=== PATIENT | male | born 1955 | race Caucasian/White ===

== ENCOUNTER → 2016-12-31 | Outpatient (CLI) | payer OTHER ==
[~2016-12-31] MED LIST: IOPAMIDOL (ISOVUE-300) 100 ML BTL IV ONE
== END ==
LOC: FIMAGING 11:07
PROVIDERS: ATTEND Internal Medicine
DX: R05 Cough (principal); R93.8 Abnormal findings on diagnostic imaging of other specified body structures; Z87.891 Personal history of nicotine dependence
CPT/HCPCS: Q9967

== ENCOUNTER 2017-01-02 13:53 | Day surgery (SDC) | payer OTHER ==
[~2017-01-02 13:53] MED LIST changes: +ALBUTEROL 3 ML DEYVIAL ONE; -IOPAMIDOL (ISOVUE-300) 100 ML BTL IV ONE; +LIDOCAINE 1% 2 ML INJ ONE
[2017-01-02] MEDS ORDERED: LIDOCAINE 1% 2 ML INJ ID PRN (14:27)
[2017-01-02] MEDS ORDERED: NS 1,000 ML IV SCH (14:30)
[2017-01-02] MEDS ORDERED: fentaNYL 100 MCG/2 ML INJ ONE (14:31)
[2017-01-02] MEDS ORDERED: MIDAZOLAM 2 MG/2 ML VIAL ONE (14:31)
[2017-01-02] MEDS ORDERED: LIDOCAINE 0.5% 50 ML SDV ONE (14:47)
[2017-01-02] MEDS ORDERED: LIDOCAINE 1% 30 ML SDV ONE (14:48)
--- NOTE | 2017-01-02 18:30 | GPN ---
[f rep st] PROCEDURE NOTE PROCEDURE PERFORMED: Bronchoscopy. INDICATION: Lung mass. HISTORY: The patient is a very pleasant 61-year-old with a distant history of tobacco use. He smoked about 3/4 of a pack of cigarettes per day for perhaps 20 years. He quit smoking 25 years ago. Over the past month, he has had episodes of bronchitis and cough. Secondary to persistent symptoms, a chest x- ray and CT scan were done. There is a left perihilar parenchymal lesion with associated adenopathy related to the superior segment of the left lower lobe and apparently extending into the medial left upper lobe. There appears to be some air filled areas within the periphery of the mass without eb cavitation. Differential primarily includes malignancy and infectious etiologies. This procedure is being done to obtain samples. PROCEDURE NOTE: The procedure was performed in the endoscopy unit in a negative pressure room. N95 masks were worn. Informed consent was obtained from the patient. Appropriate time-out was performed. Topical anesthesia included approximately 25 mL of 1% lidocaine. Conscious sedation included 6 mg of Versed and 150 mcg of fentanyl. The fiberoptic bronchoscope was passed via bite block orally in the larynx. The vocal cords were identified and cannulated. The vocal cords appeared to be normal and moved normally with respiration and cough. The bronchoscope was then advanced into the trachea and into the lower tracheobronchial tree bilaterally. There were no significant secretions. All areas were observed to at least the first subsegmental level. Anatomy was normal. Specifically, on the left, there were no endobronchial lesions and there was no evidence of extrinsic compression or mucosal abnormalities. Washings/lavage, brushings and transbronchial biopsies were taken primarily from the superior segment of the left lower lobe. These samples were sent for cultures and cytology. Transbronchial biopsies were obtained and sent for pathology. A transtracheal aspirate was attempted but the needle may not have completely penetrated the distal trachea on the left. Some material from this attempted trans-tracheal needle biopsy was placed on slides in fixative and also sent. IMPRESSION: 1. Normal endobronchial anatomy in relation to the left side in the area of the patient's lung mass on CT scan. 2. Appropriate samples were sent to the laboratory. 3. Results will not be back for several days. As the procedure was done late Thursday, I would not expect any results back until Thursday at the earliest. The patient was instructed to call the office on Thursday for discussions of the results. Further plans and recommendations will be made based on the results. /[id number]/MODL MTDD
== END 2017-01-02 17:10 | disposition home or self-care (01) ==
LOC: FSGY 13:53
PROVIDERS: ATTEND Internal Medicine Pulmonary Disease
DX: R91.8 Other nonspecific abnormal finding of lung field (principal); Z87.891 Personal history of nicotine dependence; K21.9 Gastro-esophageal reflux disease without esophagitis
CPT/HCPCS: J0171; J2250; J3010

== ENCOUNTER → 2017-02-16 | Outpatient (CLI) | payer OTHER | LOC: FIMAGING 11:17 | PROVIDERS: ATTEND Internal Medicine | DX: R91.8 Other nonspecific abnormal finding of lung field (principal) ==

== ENCOUNTER 2017-02-23 08:59 | Day surgery (SDC) | payer OTHER ==
[~2017-02-23 08:59] MED LIST changes: -ALBUTEROL 3 ML DEYVIAL ONE; -LIDOCAINE 1% 2 ML INJ ONE; +NS 1,000 ML IV SCH
[2017-02-23 10:09] LABS: APTT 29.3 SEC (23.0-38.0); INR 1.1 (0.83-1.16); PROTIME(PATIENT) 14.1 SEC (12.0-15.0)
[2017-02-23] MEDS ORDERED: LORazepam 1 MG TAB ONE (10:18)
[2017-02-23] MEDS ORDERED: fentaNYL 100 MCG/2 ML INJ ONE (10:41)
[2017-02-23] MEDS ORDERED: MIDAZOLAM 2 MG/2 ML VIAL ONE ×2 (10:42→11:43)
[2017-02-23] MEDS ORDERED: HYDROCODONE/APAP 5/325 TAB ONE (12:26)
[2017-02-23] MEDS ORDERED: HYDROCODONE/APAP 5/325 TAB PO PRN (12:33)
[2017-02-23] MEDS ORDERED: ONDANSETRON 4 MG/2 ML VIAL IVP PRN (12:33)
== END 2017-02-23 15:40 | disposition home or self-care (01) ==
LOC: FIMAGING 08:59
PROVIDERS: ATTEND Internal Medicine
PROC: 0BBL3ZX Excision of Left Lung, Percutaneous Approach, Diagnostic (ICD-10-PCS; principal; 2017-02-23 13:10)
DX: C34.92 Malignant neoplasm of unspecified part of left bronchus or lung (principal); J93.9 Pneumothorax, unspecified
CPT/HCPCS: J2250; J3010

== ENCOUNTER 2017-03-13 07:52 | Outpatient (CLI) | payer OTHER ==
[2017-03-13] MEDS ORDERED: NS 1,000 ML IV SCH (08:00)
[2017-03-13] MEDS ORDERED: GADOBUTROL 10 ML VIAL IVP ONE (08:13)
[2017-03-13] MEDS ORDERED: FLUMAZENIL 0.5 MG/5 ML MDV IVP ONE (08:55)
[2017-03-13] MEDS ORDERED: ONDANSETRON 4 MG/2 ML VIAL ONE (08:55)
[2017-03-13] MEDS ORDERED: MIDAZOLAM 2 MG/2 ML VIAL ONE (08:56)
[2017-03-13] MEDS ORDERED: fentaNYL 100 MCG/2 ML INJ ONE (08:56)
[2017-03-13] MEDS ORDERED: NALOXONE HCL 0.4 MG/ML INJ ONE (08:56)
== END 2017-03-13 10:58 | disposition home or self-care (01) ==
LOC: FIMAGING 07:52
PROVIDERS: ATTEND Internal Medicine Hematology & Oncology
DX: G93.89 Other specified disorders of brain (principal); C34.12 Malignant neoplasm of upper lobe, left bronchus or lung
CPT/HCPCS: A9585; J2250; J2310; J2405; J3010

== ENCOUNTER 2017-04-27 17:08 | Emergency (ER) | payer OTHER ==
[2017-04-27 17:24] VITALS: O2SAT 95
[2017-04-27] MEDS ORDERED: ONDANSETRON 4 MG/2 ML VIAL IVP ONE (17:29)
[2017-04-27] MEDS ORDERED: NS 1,000 ML IV ONE (17:29)
--- NOTE | 2017-04-27 18:03 | EDPHY ---
H & P Time Seen by Provider: 04/27/17 17:29 HPI/ROS: CHIEF COMPLAINT: Fever, cough, fatigue HISTORY OF PRESENT ILLNESS: The patient is a 62-year-old male with history of lung cancer, presenting with fever and cough. The patient developed a fever 5 days ago. He was told to stop his target therapy drug called Tarceva. The following day he had multiple episodes of vomiting and diarrhea which have now subsided. He developed an acute cough 3 days ago. Patient is more fatigued than usual and continues to feel chills. He is only able to ambulate for short periods of time. Patient reports decreased PO intake since starting Tarceva due to nausea. He denies urinary complaints. REVIEW OF SYSTEMS: A comprehensive 10 point review of systems is otherwise negative aside from elements mentioned in the history of present illness. Past Medical/Surgical History: Lung cancer Social History: . Lives in [place]. Smoking Status: Former smoker Physical Exam: General Appearance: Alert, pleasant Eyes: Pupils equal and round, no conjunctival pallor or injection ENT, Mouth: Mucous membranes moist Neck: Normal inspection Respiratory: Lungs are clear to auscultation Cardiovascular: Regular rate and rhythm Gastrointestinal: Abdomen is soft and non-tender Neurological: A&O, nonfocal, normal gait Skin: Warm and dry, no rash Extremities: Nontender, no pedal edema Psychiatric: Mood and affect normal Constitutional: Initial Vital Signs Temperature (C) 37.8 C 04/27/17 17:15 Heart Rate 11 L 04/27/17 17:15 Respiratory Rate 18 04/27/17 17:15 Blood Pressure 108/72 04/27/17 17:15 O2 Sat (%) 95 04/27/17 17:15 O2 Delivery Mode Room Air Allergies/Adverse Reactions: No Known Allergies Allergy (Verified 04/27/17 17:21) Home Medications: Medication Instructions Recorded Doxycycline Hyclate [Vibramycin 100 mg PO BID 04/27/17 100 MG (*)] Erlotinib HCl [Tarceva] 150 mg PO DAILY 04/27/17 FENOFIBRATE 160 mg PO 04/27/17 Famotidine [Pepcid 20 MG (*)] 20 mg PO DAILY 04/27/17 Hydrocodone Bit/Acetaminophen 1 each PO 04/27/17 [Hydrocodon-Acetaminoph 7.5-750] LORazepam [Ativan (*)] 0.5 mg PO 04/27/17 Ondansetron Odt [Zofran Odt 4 mg 4 mg PO Q4 04/27/17 (*)] Ondansetron Odt [Zofran Odt 4 mg 4 mg PO Q4 PRN #6 tab 04/27/17 (*)] levOFLOXACIN [levAQUIN (*)] 750 mg PO DAILY #9 tab 04/27/17 Medical Decision Making - Diagnostics Imaging Results: CXR: ELKE infiltrate and tumor Imaging: Discussed imaging studies w/ house calls nurse Radiologist, I viewed and interpreted images myself ED Course/Re-evaluation: Clinical presentation concerning for pneumonia. Patient with history of lung cancer presents with 4 day history of fever and cough. Patient had vomiting and diarrhea a few days ago that has now subsided. He continues to have fever and cough and reports increased fatigue. Patient received IV Zofran and fluids for nausea. Plan for chest x-ray to look for pneumonia. 6:30p.m.: I discussed x-ray imaging with Dr. Hawthorne, the radiologist. Chest x- ray shows left upper lobe pneumonia. d/w pt, he would like to go home, concurs. On Doxycycline for rash. Levaquin 750mg IV given. P informed to d/c doxycycline. 6:35 p.m.: I consulted Dr. Samuel, Oncology. Will help arrange f/u in 1-2 days. Pt strongly encouraged to return to ED for worsening sx, any concerns. Differential Diagnosis: includes though not limited to cellulitis, pyelonephritis, meningitis, viral syndrome - Data Points Medications Given: Discontinued Medications Acetaminophen (Tylenol) 650 mg PO EDNOW ONE Stop: 04/27/17 18:22 Last Admin: 04/27/17 18:40 Dose: 650 mg Sodium Chloride (Ns) 1,000 mls @ 0 mls/hr IV EDNOW ONE; Wide Open PRN Reason: Protocol Stop: 04/27/17 17:30 Last Admin: 04/27/17 17:53 Dose: 1,000 mls Levofloxacin/Dextrose (Levaquin 750 Mg (Premix)) 150 mls @ 100 mls/hr IV EDNOW ONE PRN Reason: Protocol Stop: 04/27/17 20:09 Last Admin: 04/27/17 18:49 Dose: 150 mls Ondansetron HCl (Zofran) 4 mg IVP EDNOW ONE Stop: 04/27/17 17:30 Last Admin: 04/27/17 17:54 Dose: 4 mg Departure - Departure Disposition: Home, Routine, Self-Care Clinical Impression: Pneumonia Condition: Good Instructions: Pneumonia (ED) Additional Instructions: Please take full course of Levaquin as prescribed. Take Zofran as directed for recurrent nausea and vomiting. Call Dr. Samuel's office tomorrow to arrange a followup appointment for tom or Thursday. I recommend 650mg Tylenol PO every 4-8 hours to help with fever. Referrals: Josafat Abreu MD [Primary Care Provider] - As per Instructions Joseph Samuel MD [Medical Doctor] - As per Instructions Prescriptions: levOFLOXACIN [levAQUIN (*)] 750 mg PO DAILY #9 tab Ondansetron Odt [Zofran Odt 4 mg (*)] 4 mg PO Q4 PRN #6 tab PRN Reason: Nausea Report Scribed for: Gilda Moore Report Scribed by: Franchesca Mahajan Date of Report: 04/27/17 Time of Report: 18:21 Physician Review and Approval Statement: 04/27/17 18:22 Portions of this note were transcribed by a veterinary medical officer. I personally performed the history, physical exam, and medical decision-making; and confirmed the accuracy of the information in the transcribed note.
[2017-04-27] MEDS ORDERED: ACETAMINOPHEN 325 MG TAB PO ONE (18:21)
[2017-04-27 20:34] VITALS: BP 114/62; PULSE 92; RESP 16; TEMP 97.9
== END 2017-04-27 20:34 | disposition home or self-care (01) ==
DX: J18.9 Pneumonia, unspecified organism (principal); E86.9 Volume depletion, unspecified; Z85.118 Personal history of other malignant neoplasm of bronchus and lung; Z87.891 Personal history of nicotine dependence
CPT/HCPCS: 96365; J1956; J2405

== ENCOUNTER 2017-04-30 16:34 | Inpatient (IN) | payer OTHER ==
[2017-04-30] MEDS ORDERED: NS 1,000 ML IV ONE ×3 (17:04→19:05)
--- NOTE | 2017-04-30 17:04 | EDPHY ---
H & P Stated Complaint: jose, here Thursday, on levaquin, not getting better Time Seen by Provider: 04/30/17 17:03 HPI/ROS: CHIEF COMPLAINT: Worsening malaise, vomiting, recently diagnosed with pneumonia HISTORY OF PRESENT ILLNESS: The patient has a history of lung cancer. He was recently diagnosed with pneumonia in the emergency department 3 days ago. He was started on oral Levaquin at that point time. Prior to that he had been having symptoms of increasing malaise and fatigue over several weeks. The patient reported that he had a very mild cough during this time. He did have symptoms of fairly significant diarrhea attributed to his chemotherapy. He has been off chemotherapy for some time. He was felt to have a left upper lobe pneumonia during his last ED visit. He was discharged home and follow up with his oncologist today where he was noted to be tachycardic, dehydrated reported ongoing intermittent low-grade fevers of 101-102 degrees. The patient does not endorse symptoms of a particularly strong productive cough. The patient does continue to have nausea, vomiting, weight loss and fatigue. REVIEW OF SYSTEMS: A comprehensive 10 point review of systems is otherwise negative aside from elements mentioned in the history of present illness. Source: Patient Exam Limitations: No limitations - Personal History Current Tetanus/Diphtheria Vaccine: Yes Current Tetanus Diphtheria and Acellular Pertussis (TDAP): Yes Tetanus Vaccine Date: < 10 years - Medical/Surgical History Hx Asthma: No Hx Chronic Respiratory Disease: No Hx Diabetes: No Hx Cardiac Disease: No Hx Renal Disease: No Hx Cirrhosis: No Hx Alcoholism: No Hx HIV/AIDS: No Hx Splenectomy or Spleen Trauma: No Other PMH: Hyperlipidemia. lung Ca - Social History Smoking Status: Former smoker - Physical Exam Exam: General Appearance: Thin male, cachectic, no acute distress Eyes: Pupils equal and round no pallor or injection ENT, Mouth: Mucous membranes moist Respiratory: Expiratory wheezing noted in the left upper lung field, rhonchorous breath sounds bilaterally Cardiovascular: Tachycardic Gastrointestinal: Abdomen is soft and nontender, no masses, bowel sounds normal Neurological: A&O, normal motor function, normal sensory exam, normal cranial nerves Skin: Warm and dry, no rashes Musculoskeletal: Neck is supple nontender Extremities: symmetrical, full range of motion Constitutional: Initial Vital Signs Temperature (C) 38.2 C 04/30/17 16:41 Heart Rate 121 H 04/30/17 16:41 Respiratory Rate 20 04/30/17 16:41 Blood Pressure 107/82 H 04/30/17 16:41 O2 Sat (%) 92 04/30/17 16:41 O2 Delivery Mode Room Air O2 (L/minute) 2 Allergies/Adverse Reactions: No Known Allergies Allergy (Verified 04/30/17 16:41) Home Medications: Medication Instructions Recorded Doxycycline Hyclate [Vibramycin 100 mg PO BID 04/27/17 100 MG (*)] Erlotinib HCl [Tarceva] 150 mg PO DAILY 04/27/17 FENOFIBRATE 160 mg PO 04/27/17 Famotidine [Pepcid 20 MG (*)] 20 mg PO DAILY 04/27/17 Hydrocodone Bit/Acetaminophen 1 each PO 04/27/17 [Hydrocodon-Acetaminoph 7.5-750] LORazepam [Ativan (*)] 0.5 mg PO 04/27/17 Ondansetron Odt [Zofran Odt 4 mg 4 mg PO Q4 04/27/17 (*)] Ondansetron Odt [Zofran Odt 4 mg 4 mg PO Q4 PRN #6 tab 04/27/17 (*)] levOFLOXACIN [levAQUIN (*)] 750 mg PO DAILY #9 tab 04/27/17 Medical Decision Making - Diagnostics EKG Interpretation: EKG: Complete interpretation has been separately recorded in the [facility] archive. Summary impression: Sinus rhythm, no ischemic changes or arrhythmias noted Imaging Results: Imaging Impressions Chest X-Ray 04/30/17 17:04 Impression: Acute increase in size of a central opacity within the left upper lobe suspicious for postobstructive pneumonia. Exam results discussed with Dr. Kev Shrestha. ED Course/Re-evaluation: I reviewed the patient's past medical records. He is tachycardic. His chest x- ray does show an increasing mass inside his chest from his prior chest x-ray 3 days ago. The patient does not endorse symptoms of a significant productive cough. The patient was taken for a CT scan of the chest for further evaluation of his pulmonary symptoms. The patient did have blood cultures x2 obtained in the emergency department. The patient will be started on IV Zosyn for possible postobstructive pneumonia. The patient was unable to tolerate his initial CT secondary to complaints of abdominal spasms. The patient was brought back to the emergency department. He received additional 1 mg of Ativan and 1 L of normal saline. The patient's initial lactate is normal. The patient will require admission to the hospital. Consultation is made with Dr. Morales from the hospitalist service. The patient will be admitted to the hospital for further observation this evening. Differential Diagnosis: Differential diagnosis considered includes pneumonia, pulmonary embolism, worsening intrathoracic mass, abscess - Data Points Laboratory Results: Laboratory Results 04/30/17 16:55 04/30/17 16:55 04/30/17 04/30/17 04/30/17 16:55 16:55 16:55 WBC 10.08 10^3/uL H 10^3/uL (3.80-9.50) RBC 4.12 10^6/uL L 10^6/uL (4.40-6.38) Hgb 12.1 g/dL L g/dL (13.7-17.5) Hct 35.7 % L % (40.0-51.0) MCV 86.7 fL fL (81.5-99.8) MCH 29.4 pg pg (27.9-34.1) MCHC 33.9 g/dL g/dL (32.4-36.7) RDW 13.1 % % (11.5-15.2) Plt Count 360 10^3/uL 10^3/uL (150-400) MPV 8.5 fL L fL (8.7-11.7) Neut % (Auto) 81.4 % H % (39.3-74.2) Lymph % (Auto) 7.8 % L % (15.0-45.0) [place] % (Auto) 9.5 % % (4.5-13.0) Eos % (Auto) 0.5 % L % (0.6-7.6) Baso % (Auto) 0.3 % % (0.3-1.7) Nucleat RBC Rel Count 0.0 % % (0.0-0.2) Absolute Neuts (auto) 8.20 10^3/uL H 10^3/uL (1.70-6.50) Absolute Lymphs (auto) 0.79 10^3/uL L 10^3/uL (1.00-3.00) Absolute Monos (auto) 0.96 10^3/uL H 10^3/uL (0.30-0.80) Absolute Eos (auto) 0.05 10^3/uL 10^3/uL (0.03-0.40) Absolute Basos (auto) 0.03 10^3/uL 10^3/uL (0.02-0.10) Absolute Nucleated RBC 0.00 10^3/uL 10^3/uL (0-0.01) Immature Gran % 0.5 % % (0.0-1.1) Immature Gran # 0.05 10^3/uL 10^3/uL (0.00-0.10) VBG Lactic Acid 1.2 mmol/L mmol/L (0.7-2.1) Sodium 132 mEq/L L mEq/L (134-144) Potassium 4.5 mEq/L mEq/L (3.5-5.2) Chloride 94 mEq/L L mEq/L (97-110) Carbon Dioxide 23 mEq/l mEq/l (22-31) Anion Gap 15 mEq/L mEq/L (8-16) BUN 12 mg/dL mg/dL (7-23) Creatinine 1.1 mg/dL mg/dL (0.7-1.3) Estimated GFR > 60 Glucose 112 mg/dL H mg/dL (70-100) Calcium 9.3 mg/dL mg/dL (8.5-10.4) Medications Given: Discontinued Medications Acetaminophen (Tylenol) 1,000 mg PO EDNOW ONE Stop: 04/30/17 17:21 Last Admin: 04/30/17 17:24 Dose: Not Given Sodium Chloride (Ns) 1,000 mls @ 0 mls/hr IV ONCE ONE; Wide Open PRN Reason: Protocol Stop: 04/30/17 17:05 Last Admin: 04/30/17 17:15 Dose: 1,000 mls Sodium Chloride (Ns) 1,000 mls @ 0 mls/hr IV ONCE ONE PRN Reason: Wide Open Stop: 04/30/17 18:46 Last Admin: 04/30/17 18:47 Dose: 1,000 mls Piperacillin/Tazobactam/Dextrose (Zosyn (Premix)) 100 mls @ 200 mls/hr IV EDNOW ONE PRN Reason: Protocol Stop: 04/30/17 19:43 Last Admin: 04/30/17 20:20 Dose: 100 mls Lorazepam (Ativan Injection) 1 mg IVP EDNOW ONE Stop: 04/30/17 19:06 Last Admin: 04/30/17 19:14 Dose: 1 mg Morphine Sulfate (Morphine) 6 mg IVP EDNOW ONE Stop: 04/30/17 17:39 Last Admin: 04/30/17 17:44 Dose: 6 mg Ondansetron HCl (Zofran) 4 mg IVP EDNOW ONE Stop: 04/30/17 17:10 Last Admin: 04/30/17 17:14 Dose: 4 mg Departure - Departure Disposition: [facility] Clinical Impression: Lung cancer, Vomiting, Dehydration Condition: Fair Referrals: Josafat Abreu MD [Primary Care Provider] - As per Instructions
[2017-04-30] MEDS ORDERED: ONDANSETRON 4 MG/2 ML VIAL ONE (17:05)
[2017-04-30 17:09] LABS: % IMMATURE GRANULYOCYTES 0.5 % (0.0-1.1); ABSOLUTE IMMATURE GRANULOCYTES 0.05 10^3/uL (0.00-0.10); ADD DIFF? NO; ADD MORPH? NO; ADD SCAN? NO; ATYPICAL LYMPHOCYTE FLAG 0 (0-99); FRAGMENT RBC FLAG 0 (0-99); HEMATOCRIT 35.7 % (40.0-51.0); HEMOGLOBIN 12.1 g/dL (13.7-17.5); LEFT SHIFT FLG 0 (0-99); LIPEMIA HEMOLYSIS FLAG 90 (0-99); MEAN CELL HEMOGLOBIN 29.4 pg (27.9-34.1); MEAN CELL HEMOGLOBIN CONCENTR. 33.9 g/dL (32.4-36.7); MEAN CELL VOLUME 86.7 fL (81.5-99.8); MEAN PLATELET VOLUME 8.5 fL (8.7-11.7); PLATELET CLUMPS FLAG 0 (0-99); PLATELET COUNT 360 10^3/uL (150-400); RED BLOOD CELL COUNT 4.12 10^6/uL (4.40-6.38); RED CELL DISTRIBUTION WIDTH 13.1 % (11.5-15.2)
[2017-04-30] MEDS ORDERED: ONDANSETRON 4 MG/2 ML VIAL IVP ONE (17:09)
[2017-04-30 17:17] LABS: ANION GAP 15 mEq/L (8-16); CALCIUM 9.3 mg/dL (8.5-10.4); CARBON DIOXIDE 23 mEq/l (22-31); CHLORIDE 94 mEq/L (97-110); CREATININE 1.1 mg/dL (0.7-1.3); GLOMERULAR FILTRATION RATE > 60; GLUCOSE 112 mg/dL (70-100); POTASSIUM 4.5 mEq/L (3.5-5.2); SODIUM 132 mEq/L (134-144)
[2017-04-30] MEDS ORDERED: ACETAMINOPHEN 500 MG TAB PO ONE (17:20)
[2017-04-30] MEDS ORDERED: ACETAMINOPHEN 500 MG TAB ONE (17:32)
[2017-04-30] MEDS ORDERED: IOPAMIDOL (ISOVUE 370) 100 ML BTL IV ONE (18:08)
--- NOTE | 2017-04-30 18:44 | CPEKG ---
Heart Rate: 93 RR Interval: 645 P-R Interval: 140 QRSD Interval: 76 QT Interval: 344 QTC Interval: 428 P Eola: 48 QRS Eola: 34 T Wave Eola: 21 EKG Severity - OTHERWISE NORMAL ECG - EKG Impression: SINUS RHYTHM EKG Impression: ATRIAL PREMATURE COMPLEX Electronically Signed By: Zachariah Thapa 30-Apr-2017 18:56:45
[2017-04-30] MEDS ORDERED: LORazepam 2 MG/ML INJ IVP ONE (19:05)
[2017-04-30] MEDS ORDERED: PIPERACILLIN/TAZO 4.5 GM/DEX 100 ML IV ONE (19:14)
[2017-04-30] MEDS ORDERED: ONDANSETRON 4 MG/2 ML VIAL IVP PRN (21:16)
[2017-04-30] MEDS ORDERED: HYDROCODONE/APAP 5/325 TAB PO PRN (21:16)
[2017-04-30 21:19] LABS: COLOR YELLOW; LEUKOCYTE ESTERASE,URINE NEGATIVE (NEGATIVE); NITRITE,URINE NEGATIVE (NEGATIVE); RBC,URINE 25-50 /hpf (0-3)
--- NOTE | 2017-04-30 22:07 | GHP ---
[f rep st] HISTORY AND PHYSICAL DATE OF ADMISSION: 04/30/2017 CHIEF COMPLAINT: Fever and shortness of breath. HISTORY OF PRESENT ILLNESS: A 62-year-old male with a history of lung cancer, receiving active chem otherapy, who presents to his outpatient oncologist's office with complaints of fevers times approxi mately a week and progressing shortness of breath with wheezing, tight sensation in his chest. Sheeba ent reports progressive in rather severe fatigue after his most recent round of chemotherapy that he felt he just simply could not recover from, fatigue keeping him from really engaging in even his si mple activities of daily living. His reports that he has been nearly nonmobile for many, many weeks. Patient describes fevers intermittently quite high and intolerable in the last week. Report s shortness of breath, tightness, wheezing, nonproductive cough. Patient does report diarrhea post chemotherapy and has had intermittent abdominal spasms that are quite uncomfortable for him. Denies any bloody diarrhea. Denies any dysuria, any hematuria, or lower extremity edema. Did have a rash after his last round of chemotherapy that has resolved and has had recent weight loss that he assoc iates with decreased appetite, his heightened sense of smell, and his stress related to his new diag nosis. PAST MEDICAL HISTORY: Lung cancer. SOCIAL HISTORY: Patient was a previous tobacco smoker, but quit over 28 years ago. No alcohol or i llicit drugs. FAMILY HISTORY: Negative for lung cancer. ADVANCED DIRECTIVES: Patient is full cor, full tube. His would be his medical decisionmaker. REVIEW OF SYSTEMS: A 10-point review of systems is negative with the exception of that reported in the HPI. PHYSICAL EXAMINATION: VITAL SIGNS: Blood pressure 127/76, heart rate 121, respiratory rate 20, 92% on room air, 38.2. GENERAL: This is a fatigued-appearing, middle-aged male in no acute distress. HEENT: Notable for dry mucous membranes. Eye exam is negative for any icterus. Patient does have pallor. CARDIAC: Patient is tachycardic, but regular. PULMONARY: Crackles at the right base gre ater than the left, is aerating normally in his upper lung farris. GASTROINTESTINAL: Positive kraen l sounds. Abdomen is soft. MUSCULOSKELETAL: Negative for any lower extremity edema. SKIN: Negat ramon for any rashes. NEUROLOGIC: He is alert and oriented x3. PSYCHIATRIC: Appears depressed on m y interview and examination. DIAGNOSTIC DATA: White count 10.08, platelets of 360. Sodium 132, creatinine 1.1, baseline appears 1, potassium 4.5. CT of the chest shows an enlarging left upper lobe mass. Radiology describes as left hilar with a p robable post obstructive left upper lobe pneumonitis. No pulmonary embolic disease is noted. ASSESSMENT AND PLAN: This is a 62-year-old male with lung cancer receiving active chemotherapy who presents with fever and shortness of breath. 1. Sepsis. The patient is presenting febrile, tachycardic, with leukocytosis. Presumed source is pulmonary. Agree with broad-spectrum antibiotics. To treat post obstructive pneumonia. Blood cult ures have been obtained in the emergency department. Will order sputum cultures, as well as urinaly sis to round out the sepsis workup. Can taper his antibiotics based on culture data. 2. Post obstructive pneumonia. There is an infiltrate associated with what appears to be an enlarg ing left hilar mass, certainly concerning while on active chemotherapy. Again, will treat empirical ly with IV antibiotics and follow patient's clinical progress. Will additionally treat with inhaled DuoNebs to assist with his chest tightness and wheezing sensation. 3. Acute leukocytosis presumed secondary to pneumonia. Follow on treatment. 4. Hypovolemic hyponatremia. Patient has had little oral intake. Suspect his low sodiums at prese ntation are related to his volume depletion. Will resuscitate with IV normal saline and recheck in the morning. 5. Lung cancer. Primary oncologist initiated transfer to the hospital. Will have [facility] follow along. 6. Prophylaxis with Lovenox. 7. Diet regular. DISPOSITION: I expect greater than 2 midnights as the patient requires IV treatment for sepsis, flu id support, and close monitoring. Discussed the case with the emergency room physician. The patient will be triaged to the PCU for ca rdiac monitoring and IV fluid resuscitation. /[id number]/MODL
[2017-04-30] MEDS: NS 1,000 ML IV SCH (22:12)
[2017-04-30] MEDS: IPRATROPIUM/ALBUTEROL 3 ML DEYVIAL IH SCH (22:27)
[2017-04-30] MEDS ORDERED: BENZONATATE 100 MG CAP PO PRN (23:26)
[2017-05-01] MEDS: PIPERACILLIN/TAZO 4.5 GM/DEX 100 ML IV SCH ×4 (01:13→18:39)
[2017-05-01 04:56] LABS: % IMMATURE GRANULYOCYTES 0.8 % (0.0-1.1); ABSOLUTE IMMATURE GRANULOCYTES 0.06 10^3/uL (0.00-0.10); ADD DIFF? NO; ADD MORPH? NO; ADD SCAN? NO; ATYPICAL LYMPHOCYTE FLAG 0 (0-99); FRAGMENT RBC FLAG 0 (0-99); HEMATOCRIT 28.6 % (40.0-51.0); HEMOGLOBIN 9.7 g/dL (13.7-17.5); LEFT SHIFT FLG 10 (0-99); LIPEMIA HEMOLYSIS FLAG 90 (0-99); MEAN CELL HEMOGLOBIN 29.8 pg (27.9-34.1); MEAN CELL HEMOGLOBIN CONCENTR. 33.9 g/dL (32.4-36.7); MEAN CELL VOLUME 87.7 fL (81.5-99.8); MEAN PLATELET VOLUME 8.5 fL (8.7-11.7); PLATELET CLUMPS FLAG 10 (0-99); PLATELET COUNT 282 10^3/uL (150-400); RED BLOOD CELL COUNT 3.26 10^6/uL (4.40-6.38); RED CELL DISTRIBUTION WIDTH 13.2 % (11.5-15.2)
[2017-05-01 05:05] LABS: ANION GAP 11 mEq/L (8-16); CALCIUM 8.2 mg/dL (8.5-10.4); CARBON DIOXIDE 23 mEq/l (22-31); CHLORIDE 103 mEq/L (97-110); GLOMERULAR FILTRATION RATE > 60; GLUCOSE 115 mg/dL (70-100); POTASSIUM 4.2 mEq/L (3.5-5.2); SODIUM 137 mEq/L (134-144)
[2017-05-01] MEDS: IPRATROPIUM/ALBUTEROL 3 ML DEYVIAL IH SCH ×4 (05:57→21:34)
[2017-05-01] MEDS: ENOXAPARIN 40 MG/0.4 ML SYR SC SCH (09:28)
--- NOTE | 2017-05-01 09:49 | GCON ---
[f rep st] CONSULTATION HEMATOLOGY/ONCOLOGY CONSULTATION. REASON FOR CONSULTATION: Lung cancer. RECOMMENDATIONS: 1. Empiric IV antibiotic therapy for postobstructing pneumonia. 2. We will review his imaging and at our tumor board meeting. The issues are:. a. Is the disease progressing on Tarceva? b. If #1 is true, should he have chemoradiotherapy to open his bronchus? c. If #1 is true, should he switch to a different tyrosine kinase such as afatinib at a low dose? 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 Shaw on February 27. At that time, he was noted to have symptoms, beginning in 2015, characterized by cough and infection. A bronchoscopy revealed no evidence of malignancy, but a repeat bronchoscopy revealed adenocarcinoma. He had a history of smoking, but quit in 1993. He had a 22 pack-year history. He had an MRI scan and a PET scan. The PET scan showed that he had T2B N3 M0, stage IIIB disease, and molecular targets were tested. He was found to have a LA58R EGFR mutation, but the tumor was PDL1 negative. Initially it was recommended that he begin afatinib, but because he got a second opinion at with Dr. Wu, he started on erlotinib. He was begun in mid February on erlotinib 150 mg daily. He has taken about 4 weeks of erlotinib, but his treatment has been very complicated by a grade 3 fatigue, almost to the extent that he cannot get out of bed, as well as a grade 1 acneiform rash on his face, and some loss of appetite. He went up to [place] for a family green party, and then developed cough, vomiting, and fever. He was seen in the clinic a couple of days ago, sent to the emergency room for evaluation, and placed on Levaquin, with a diagnosis of probably postobstructed pneumonia. He came into the clinic yesterday, April 30, with worsening symptoms of cough. His O2 sat was 93% on room air. He had blood cultures obtained, and was admitted to the hospital. A CT angiogram was performed, which revealed no evidence for pulmonary emboli, but it showed significant increase, compared to February 23 CT scan, in the left hilar mass, and also some enlarging left-sided paratracheal or periaortic lymph nodes in the 2 to 2.5 cm range, which were not that large in the past. The patient also had postobstructive inflammatory infiltrate. He was admitted and placed on piperacillin, and currently is afebrile. He now presents for consultation. CLINICAL IMPRESSION: 1. My impression is that he has progressed. The issues are:. a. Did he progress before he started erlotinib, which was about a month after the baseline CT? While that is possible, he was not having fever at that time, and I suspect that this has progressed while on erlotinib after 4 weeks. b. Could this be some sort of a flare reaction? Flare reactions have been seen when we discontinue erlotinib or other TKIs, but they are not seen on it, like it could occur in a PDL1 inhibitor. c. If he is progressing, then what would be the next best therapy? I think chemoradiotherapy would be the standard of care, and this could be given with a curative intent with weekly Carbo/Taxol and radiation. d. An alternative would be to switch him to a different TKI, such afatinib. However, that has been associated with more toxicity. e. Continue the Tarceva for another few weeks, and then repeat imaging and see if there is just a delay in response, and persist with the current therapy. 2. Those are the options. We will review his case at Tumor Board and come to some conclusion next week, hopefully. PAST MEDICAL HISTORY: Otherwise, not remarkable. He has had a history of hypertriglyceridemia, history of a cholecystectomy. FAMILY HISTORY: Reveals his mother of heart disease, but his father is alive at 91. 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 He drinks alcohol sparingly. REVIEW OF SYSTEMS: Shows that he has a sense of general malaise, and obvious concern. His weight today is measured at down about 12 pounds since January. He has some cough, but no hemoptysis. He does not have any chest pain. The main symptoms are just general malaise and fatigue, fever, and some chills. CLINICAL EXAM: GENERAL APPEARANCE: Reveals a well-developed gentleman looking his stated age. HEENT: He has no scleral icterus. NECK: There is no cervical or supraclavicular adenopathy. LUNGS: Clear to P and A. CV: S1 normal, S2 normally split. No S3, S4, or murmur. ABDOMEN: There are no abdominal masses or hepatosplenomegaly. EXTREMITIES: There is no extremity edema or calf tenderness. NEUROLOGICAL: He is intact. PLAN: As noted above. /[id number]/MODL MTDD
[2017-05-01] MEDS: LORazepam 2 MG/ML INJ IVP PRN ×2 (11:05→19:17)
[2017-05-01] MEDS: traMADol 50 MG TAB PO PRN ×2 (15:30→21:20)
[2017-05-01] MEDS: ONDANSETRON DISINTEGRATING 4 MG TAB PO PRN (15:32)
[2017-05-01] MEDS: ACETAMINOPHEN 325 MG TAB PO PRN (15:33)
--- NOTE | 2017-05-01 16:11 | ASMTCASEMG ---
Living Arrangements What is your living Answers: With Spouse arrangement? Who do you live with? Type Of Residence What kind of residence do Answers: House you live in? Discharge Plan Comments Coordination Status Comments Notes: Chart reviewed, pt was admitted for postobstructive PNA and lung CA. Reviewed PT eval, pt independent with all functioning mobility. Anticipate d/c home w/ supportive . CM available for changes. Date Signed: 05/01/2017 04:10 PM Electronically Signed By:Deysi Live
--- NOTE | 2017-05-01 16:35 | HOSPPROG ---
Hospitalist Progress Note Assessment/Plan: # Sepsis- patient with tachycardia fever leukocytosis presumed source pulmonary on admission Patient remains febrile overnight- tachycardia and leukocytosis improved with IV fluids and empiric antibiotics Ct chest (personally reviewed and interpreted) suspected progressing malignancy and postobstructive pneumonia- BCx NGTD - continue IV fluids until p.o. adequate - continue empiric IV antibiotics - cont IV Zosyn # postobstructive pneumonia- patient with improved respiratory symptoms overnight- blood cultures as above negative - continue empiric antibiotics # lung cancer- appears to have progression on CT imaging - hematology oncology following - plan related to ongoing chemotherapy and intervention will be coordinated by Oncology # acute leukocytosis- resolved with empiric antibiotics # hypovolemic hyponatremia- 132->137 resolved after fluid resuscitation # prophylaxis Lovenox # diet regular # disposition greater than 2 midnights as patient requires ongoing treatment for postobstructive pneumonia and resolving sepsis Discussed the case with the RN- patient remains febrile will treat with Tylenol and continue per supportive care Subjective: Very upset about news related to his malignancy Objective: Vital Signs Temp Pulse Resp BP Pulse Ox 39.5 C H 85 15 114/62 92 05/01/17 15:54 05/01/17 16:21 05/01/17 16:21 05/01/17 13:36 05/01/17 16:21 Laboratory Results 05/01/17 03:57 05/01/17 03:57 04/30/17 05/01/17 05/02/17 05:59 05:59 05:59 Intake Total 3350 350 Output Total 680 25 Balance 2670 325 - Physical Exam Constitutional: chronically ill appearing Eyes: anicteric sclera Ears, Nose, Mouth, Throat: moist mucous membranes Cardiovascular: regular rate and rhythym Respiratory: no respiratory distress, inspiratory crackles Gastrointestinal: normoactive bowel sounds Genitourinary: no bladder fullness Skin: warm Musculoskeletal: No asymmetric calves Neurologic: AAOx3 Psychiatric: depressed Lymph, Heme, Immunologic: no cervical LAD ICD10 Worksheet Patient Problems: Problems Problem Status Onset Dehydration Acute Lung cancer Acute Vomiting Acute
[2017-05-01] MEDS: NS 1,000 ML IV SCH (22:13)
[2017-05-02] MEDS: ACETAMINOPHEN 325 MG TAB PO PRN ×2 (00:27→14:18)
[2017-05-02] MEDS: PIPERACILLIN/TAZO 4.5 GM/DEX 100 ML IV SCH ×5 (00:29→23:54)
[2017-05-02] MEDS: NS 1,000 ML IV SCH ×2 (04:40→23:57)
[2017-05-02] MEDS: IPRATROPIUM/ALBUTEROL 3 ML DEYVIAL IH SCH ×4 (05:08→21:35)
[2017-05-02 05:59] LABS: HEMATOCRIT 26.7 % (40.0-51.0); HEMOGLOBIN 8.9 g/dL (13.7-17.5); MEAN CELL HEMOGLOBIN 29.7 pg (27.9-34.1); MEAN CELL HEMOGLOBIN CONCENTR. 33.3 g/dL (32.4-36.7); RED CELL DISTRIBUTION WIDTH 13.4 % (11.5-15.2)
[2017-05-02 06:17] LABS: ANION GAP 9 mEq/L (8-16); CALCIUM 8.1 mg/dL (8.5-10.4); CARBON DIOXIDE 23 mEq/l (22-31); CHLORIDE 104 mEq/L (97-110); CREATININE 0.8 mg/dL (0.7-1.3); GLOMERULAR FILTRATION RATE > 60; GLUCOSE 109 mg/dL (70-100); POTASSIUM 4.4 mEq/L (3.5-5.2); SODIUM 136 mEq/L (134-144)
[2017-05-02] MEDS: traMADol 50 MG TAB PO PRN ×3 (08:35→20:40)
[2017-05-02] MEDS: ENOXAPARIN 40 MG/0.4 ML SYR SC SCH (08:37)
--- NOTE | 2017-05-02 10:02 | SOAPPROG ---
SOAP Progress Note Assessment/Plan: Assessment: 1. NSCLC, stage IIIB, EGFR mutated 2. Post-obstructive pneumonia Pt has been on Tarceva x 4 weeks. Difficult to say if he clearly has progressive disease or just not enough time to respond. Doing better w/ IV abx. Plan: - continue IV abx - could convert to oral tomorrow, though he did not tolerate levofloxacin in outpt setting due to vomiting - will discuss his case at cancer conference Thursday. Could consider palliative RT to lung, followed by [facility]. Since he is stage IIIB, could also consider definitive chemo/RT with curative intent, though patient has many concerns re: the toxicity of chemo. Will defer this decision to his primary oncologist, Dr. Shaw. 25 min spent w/ pt and in coordination of care. 05/02/17 09:59 Subjective: feeling better today. Objective: exam: Gen NAD. breathing comfortably Lungs: diminished sounds ELKE, otherwise CTA CV RRR no MGR aBd: +BS NT nD Ext: no edema Neuro: a+ox3 Vital Signs Temp Pulse Resp BP Pulse Ox 36.8 C 101 H 18 124/72 H 98 05/02/17 07:30 05/02/17 07:30 05/02/17 07:30 05/02/17 07:30 05/02/17 07:30 Laboratory Results 05/02/17 05:35 05/02/17 05:35 05/01/17 05/02/17 05/03/17 05:59 05:59 05:59 Intake Total 3350 1350 Output Total 680 25 Balance 3400 1325 ICD10 Worksheet Patient Problems: Problems Problem Status Onset Dehydration Acute Lung cancer Acute Vomiting Acute
[2017-05-02] MEDS ORDERED: BISACODYL 10 MG SUPP PR PRN (11:00)
[2017-05-02] MEDS ORDERED: LACTULOSE 20 GM/30 ML UDCUP PO PRN (11:00)
[2017-05-02] MEDS ORDERED: POLYETHYLENE GLYCOL 3350 17 GM PKT PO PRN (11:00)
[2017-05-02] MEDS: ONDANSETRON DISINTEGRATING 4 MG TAB PO PRN (11:13)
[2017-05-02] MEDS: MAGNESIUM HYDROXIDE 30 ML UDCUP PO PRN (11:21)
--- NOTE | 2017-05-02 15:36 | HOSPPROG ---
Hospitalist Progress Note Assessment/Plan: # Sepsis- patient with tachycardia, fever and leukocytosis (presumed source pulmonary) on admission- now tachycardia only with fever blood cultures 04/27 and 04/30 NGTD - Ct chest (personally reviewed and interpreted) suspected progressing malignancy and postobstructive pneumonia - continue IV fluids until p.o. adequate - continue empiric IV Zosyn # postobstructive pneumonia- patient with improved respiratory symptoms overnight- blood cultures as above negative oxygen saturations 95% on room air - continue empiric antibiotics # lung cancer- appears to have progression on CT imaging - hematology oncology following - plan related to ongoing chemotherapy and intervention will be coordinated by Oncology # acute leukocytosis- resolved with empiric antibiotics- 7 this am # hypovolemic hyponatremia- 132->136 resolved after fluid resuscitation # prophylaxis Lovenox # diet regular # disposition greater than 2 midnights as patient requires ongoing treatment for postobstructive pneumonia and resolving sepsis Discussed the case with PCP Brady - will use tylenol, zofran and ultram in outpt setting for dc Subjective: very depressed - fatigued Objective: Vital Signs Temp Pulse Resp BP Pulse Ox 38.4 C H 103 H 21 H 107/68 95 05/02/17 15:25 05/02/17 15:25 05/02/17 15:25 05/02/17 15:25 05/02/17 15:25 Laboratory Results 05/02/17 05:35 05/02/17 05:35 05/01/17 05/02/17 05/03/17 05:59 05:59 05:59 Intake Total 3350 1350 Output Total 680 25 Balance 2670 1325 - Physical Exam Constitutional: chronically ill appearing Eyes: anicteric sclera Ears, Nose, Mouth, Throat: moist mucous membranes Cardiovascular: regular rate and rhythym Respiratory: no respiratory distress, inspiratory crackles Gastrointestinal: normoactive bowel sounds, soft, non-tender abdomen Genitourinary: no bladder fullness Skin: warm, normal color Musculoskeletal: No asymmetric calves Neurologic: AAOx3 Psychiatric: depressed, flat affect Lymph, Heme, Immunologic: no cervical LAD ICD10 Worksheet Patient Problems: Problems Problem Status Onset Dehydration Acute Lung cancer Acute Vomiting Acute
[2017-05-02] MEDS: IBUPROFEN 600 MG TAB PO PRN (15:50)
[2017-05-02] MEDS: LORazepam 2 MG/ML INJ IVP PRN (17:11)
[2017-05-02] MEDS: SENNOSIDES/DOCUSATE SODIUM TAB PO SCH (20:40)
[2017-05-03] MEDS: IPRATROPIUM/ALBUTEROL 3 ML DEYVIAL IH SCH ×4 (05:40→20:36)
[2017-05-03] MEDS: PIPERACILLIN/TAZO 4.5 GM/DEX 100 ML IV SCH ×3 (05:46→18:36)
[2017-05-03] MEDS: traMADol 50 MG TAB PO PRN ×3 (05:51→19:50)
[2017-05-03] MEDS: ONDANSETRON DISINTEGRATING 4 MG TAB PO PRN (08:03)
[2017-05-03] MEDS: ENOXAPARIN 40 MG/0.4 ML SYR SC SCH (11:17)
--- NOTE | 2017-05-03 12:08 | SOAPPROG ---
SOAP Progress Note Assessment/Plan: Assessment: 1. NSCLC, stage IIIB, EGFR mutated 2. Post-obstructive pneumonia Pt has been on Tarceva x 4 weeks. Difficult to say if he clearly has progressive disease or just not enough time to respond. Doing better w/ IV abx. Plan: - continue abx per hospitalist. 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 options for Rx include palliative RT, definitive chemo/RT w curative intent 25 min spent w/ pt, , and in coordination of care Subjective: still TOL[place] but somewhat better. Objective: exam: unchanged Vital Signs Temp Pulse Resp BP Pulse Ox 36.8 C 90 16 136/75 H 91 L 05/03/17 07:43 05/03/17 09:11 05/03/17 09:11 05/03/17 07:43 05/03/17 09:11 Laboratory Results 05/02/17 05:35 05/02/17 05:35 05/02/17 05/03/17 05/04/17 05:59 05:59 05:59 Intake Total 1350 3048 Output Total 25 1750 Balance 1325 1298 ICD10 Worksheet Patient Problems: Problems Problem Status Onset Dehydration Acute Lung cancer Acute Vomiting Acute
[2017-05-03] MEDS: SENNOSIDES/DOCUSATE SODIUM TAB PO SCH ×3 (12:09→19:59)
[2017-05-03] MEDS: ACETAMINOPHEN 325 MG TAB PO PRN (12:18)
--- NOTE | 2017-05-03 13:43 | HOSPPROG ---
Hospitalist Progress Note Assessment/Plan: # Sepsis- patient with tachycardia, fever and leukocytosis (presumed source pulmonary) on admission- now tachycardia only with fever blood cultures 04/27 and 04/30 NGTD - CXR (personally reviewed and interpreted) increased size of left upper lobe infiltrate consistent with postobstructive pneumonia - continue IV fluids until p.o. adequate - continue empiric IV Zosyn # Acute bilateral hand neuropathy - unclear if simply from immobilization and PIV or concerning metastatic sx - MRI cervical oredered # postobstructive pneumonia- patient with improved respiratory symptoms overnight- blood cultures as above negative oxygen saturations 95% on room air - continue empiric antibiotics # lung cancer- appears to have progression on CT imaging - hematology oncology following - plan related to ongoing chemotherapy and intervention will be coordinated by Oncology # acute leukocytosis- resolved with empiric antibiotics- WBC 7 # hypovolemic hyponatremia- 132-> 136 resolved after fluid resuscitation # prophylaxis Lovenox # diet regular # disposition greater than 2 midnights as patient requires ongoing treatment for postobstructive pneumonia and resolving sepsis Discussed the case with Dr. Wild - will get cervical MRI and strongly encourage mobilization and good PO intake Subjective: numbness/tingling bilateral hands Objective: Vital Signs Temp Pulse Resp BP Pulse Ox 37.8 C 107 H 26 H 134/74 H 93 05/03/17 12:15 05/03/17 12:15 05/03/17 12:15 05/03/17 12:15 05/03/17 12:15 Laboratory Results 05/02/17 05:35 05/02/17 05:35 05/02/17 05/03/17 05/04/17 05:59 05:59 05:59 Intake Total 1350 3048 Output Total 25 1750 Balance 1325 1298 - Physical Exam Constitutional: chronically ill appearing Eyes: anicteric sclera Ears, Nose, Mouth, Throat: moist mucous membranes Cardiovascular: regular rate and rhythym Respiratory: no respiratory distress, no rales or rhonchi Gastrointestinal: normoactive bowel sounds Genitourinary: no bladder fullness Skin: warm, normal color Musculoskeletal: No asymmetric calves Neurologic: AAOx3 Psychiatric: interacting appropriately, anxious, depressed Lymph, Heme, Immunologic: no cervical LAD ICD10 Worksheet Patient Problems: Problems Problem Status Onset Dehydration Acute Lung cancer Acute Vomiting Acute
--- NOTE | 2017-05-03 16:06 | ASMTCMCOM ---
CM Note CM Note Notes: Pt currently on IV Zosyn. It is unclear if he will tx to oral before DC tomorrow. C/M will check with RN/MD prior to DC. Plan is for pt's case to be discussed in conference on 05/06 to help direct treatment options. C/M to follow. Date Signed: 05/03/2017 04:06 PM Electronically Signed By:Rubia Olvera
[2017-05-03] MEDS: IBUPROFEN 600 MG TAB PO PRN (18:36)
[2017-05-03] MEDS: MAGNESIUM HYDROXIDE 30 ML UDCUP PO PRN (19:59)
[2017-05-03 20:13] VITALS: RESP 16
[2017-05-03] MEDS: LORazepam 2 MG/ML INJ IVP PRN (21:05)
[2017-05-03] MEDS: NS 1,000 ML IV SCH (21:05)
[2017-05-04] MEDS: PIPERACILLIN/TAZO 4.5 GM/DEX 100 ML IV SCH ×2 (00:09→05:19)
[2017-05-04] MEDS: IBUPROFEN 600 MG TAB PO PRN (00:09)
[2017-05-04 04:33] LABS: HEMOGLOBIN 9.1 g/dL (13.7-17.5); MEAN CELL HEMOGLOBIN 29.1 pg (27.9-34.1); MEAN CELL HEMOGLOBIN CONCENTR. 32.5 g/dL (32.4-36.7); MEAN CELL VOLUME 89.5 fL (81.5-99.8); RED BLOOD CELL COUNT 3.13 10^6/uL (4.40-6.38); RED CELL DISTRIBUTION WIDTH 13.6 % (11.5-15.2)
[2017-05-04 04:55] LABS: CHOLESTEROL 59 mg/dL (140-220); CHOLESTEROL/HDL RATIO 4.54 RATIO (1.00-4.97); HIGH DENSITY LIPOPROTEIN 13 mg/dL (40-65); LDL/HDL RATIO 2.31 RATIO (1.00-3.64); LOW DENSITY LIPOPROTEIN 30 mg/dL (80-100); NON-HIGH DENSITY LIPOPROTEIN 46 mg/dL (90-129); TRIGLYCERIDE 84 mg/dL (40-150); VERY LOW DENSITY LIPOPROTEINS 16 mg/dL (8-25)
[2017-05-04] MEDS: IPRATROPIUM/ALBUTEROL 3 ML DEYVIAL IH SCH ×2 (05:00→09:33)
[2017-05-04 05:04] LABS: % SATURATION 13 % (20-55); TOTAL IRON BINDING CAPACITY 128 ug/dL (260-490)
[2017-05-04] MEDS: SENNOSIDES/DOCUSATE SODIUM TAB PO SCH (08:21)
[2017-05-04] MEDS: ENOXAPARIN 40 MG/0.4 ML SYR SC SCH (08:22)
[2017-05-04] MEDS: traMADol 50 MG TAB PO PRN (08:25)
[2017-05-04 08:30] VITALS: BP 124/81; PULSE 85; TEMP 98.4; O2SAT 95
--- NOTE | 2017-05-04 11:11 | SOAPPROG ---
SOAP Progress Note Assessment/Plan: Assessment: 1. NSCLC, stage IIIB, EGFR mutated 2. Post-obstructive pneumonia Pt has been on Tarceva x 4 weeks. Difficult to say if he clearly has progressive disease or just not enough time to respond. Doing better w/ IV abx. Plan: - d/c to home on PO abx (augmentin; pt was not able to tolerate levoflox due to GI toxicity.) would continue this until cancer has been more effectively treated and obstruction has resolved - will hold Tarceva for now, at patient's request - case to be discussed at cancer conference on 05/06. options for Rx include palliative RT, definitive chemo/RT w curative intent 25 min spent w/ pt, , and in coordination of care 05/04/17 11:09 Subjective: feeling better. still w/ intermittent fevers. Objective: exam unchanged Vital Signs Temp Pulse Resp BP Pulse Ox 36.9 C 85 16 124/81 H 95 05/04/17 08:25 05/04/17 08:25 05/04/17 08:25 05/04/17 08:25 05/04/17 08:25 Laboratory Results 05/04/17 04:14 05/02/17 05:35 05/03/17 05/04/17 05/05/17 05:59 05:59 05:59 Intake Total 6160 1580 Output Total 9472 1999 Balance 1298 1255 ICD10 Worksheet Patient Problems: Problems Problem Status Onset Dehydration Acute Lung cancer Acute Vomiting Acute
--- NOTE | 2017-05-04 14:48 | ASDISCHSUM ---
Discharge Information Plan Status:Home with No Needs Medically Cleared to Leave: Discharge Date:05/04/2017 01:03 PM CM D/C Disposition:Home, Routine, Self-Care ADT D/C Disposition:Home, Routine, Self-Care Projected Discharge Date:05/03/2017 12:00 AM Transportation at D/C:Family Discharge Delay Reason: Follow-Up Date:05/03/2017 12:00 AM Discharge Slot: Final Diagnosis: Placement Information Patient Contact Information Contact Name:CHANCE Relationship: Address:[address] City:[place] Alternate Phone: [facility]/Zip Code:[place] [address] Email: Financial Information Financial Class:HMO and PPO Plans Primary Plan Desc:KEV NAYLOR Primary Plan Number:[id number] Secondary Plan Desc: Secondary Plan Number: Assessment Information [facility] Initial CM Assessment Living Arrangements What is your living Answers: With Spouse arrangement? Who do you live with? Type Of Residence What kind of residence do Answers: House you live in? Discharge Plan Comments Coordination Status Comments Notes: Chart reviewed, pt was admitted for postobstructive PNA and lung CA. Reviewed PT eval, pt independent with all functioning mobility. Anticipate d/c home w/ supportive . CM available for changes. Date Signed: 05/01/2017 04:10 PM Electronically Signed By:Deysi Live [facility] CM Progress Note CM Note CM Note Notes: Pt currently on IV Zosyn. It is unclear if he will tx to oral before DC tomorrow. C/M will check with RN/MD prior to DC. Plan is for pt's case to be discussed in conference on 05/06 to help direct treatment options. C/M to follow. Date Signed: 05/03/2017 04:06 PM Electronically Signed By:Rubia Olvera Intervention Information
== END 2017-05-04 13:03 | disposition home or self-care (01) | DRG 871 ==
LOC: F2W 21:40 → F1N 05-01 18:15
PROVIDERS: ADMIT Hospitalist; ATTEND Hospitalist
DX: A41.9 Sepsis, unspecified organism (principal); J18.0 Bronchopneumonia, unspecified organism; E86.1 Hypovolemia; E87.1 Hypo-osmolality and hyponatremia; C34.02 Malignant neoplasm of left main bronchus; Z87.891 Personal history of nicotine dependence
CPT/HCPCS: 96365; 97161-GP; J1650; J2060; J2405; J2543; Q9967

== ENCOUNTER → 2017-05-11 | Outpatient (CLI) | payer OTHER | LOC: FLAB 13:19 | PROVIDERS: ATTEND Internal Medicine Hematology & Oncology | DX: R91.8 Other nonspecific abnormal finding of lung field (principal); J90 Pleural effusion, not elsewhere classified ==

== ENCOUNTER → 2017-05-13 | Outpatient (CLI) | payer OTHER ==
[~2017-05-13] MED LIST changes: +ACETAMINOPHEN 325 MG TAB ONE; +GADOBUTROL 10 ML VIAL IVP ONE; +MIDAZOLAM 2 MG/2 ML VIAL ONE; -NS 1,000 ML IV SCH; +fentaNYL 100 MCG/2 ML INJ ONE
== END ==
LOC: FIMAGING 11:19
PROVIDERS: ATTEND Internal Medicine Hematology & Oncology
DX: G93.9 Disorder of brain, unspecified (principal); R20.2 Paresthesia of skin; C34.12 Malignant neoplasm of upper lobe, left bronchus or lung
CPT/HCPCS: A9585; J2250; J3010

== ENCOUNTER 2017-06-03 21:39 | Inpatient (IN) | payer OTHER ==
[2017-06-03] MEDS ORDERED: ONDANSETRON 4 MG/2 ML VIAL ONE (22:17)
--- NOTE | 2017-06-03 22:22 | EDPHY ---
H & P Stated Complaint: Hx of lung CA, recent PNA c/admit to [facility] febrile, likely recurrence Time Seen by Provider: 06/03/17 22:22 HPI/ROS: CHIEF COMPLAINT: HISTORY OF PRESENT ILLNESS: REVIEW OF SYSTEMS: A ten point review of systems was performed and is negative with the exception of the items mentioned in the HPI. Past medical history: Past surgical history: Family history: Social history: General Appearance: Alert. Vital signs reviewed. * Eyes: Pupils equal and round, no conjunctival injection, no discharge. Anicteric. ENT, Mouth: Mucous membranes are moist, no oropharyngeal erythema or edema. Neck: No lymphadenopathy, supple. Respiratory: Lungs are clear to auscultation; no wheezes, rales, or rhonchi. Cardiovascular: Regular rate and rhythm; no murmur, rub, or gallop. Gastrointestinal: Abdomen is soft and nontender, no masses or organomegaly, bowel sounds normal. Skin: Warm and dry, no rashes on exposed skin, normal color. Back: Nontender to palpation over the thoracolumbar spine. No CVAT. Extremities: No lower extremity edema, no calf tenderness or swelling. Neurological: Alert and oriented. Moving all four extremities easily and equally. Cranial nerves II through XII are examined and are intact (visual acuity not tested). Strength is 5 over 5 bilaterally with testing of all major motor groups. Sensation is intact to light touch over all 4 extremities. Deep tendon reflexes are 2+ in the biceps and knees bilaterally. Gait is normal. [id number] is performed accurately. Psychiatric: Normal affect. - Personal History Current Tetanus/Diphtheria Vaccine: Yes Tetanus Vaccine Date: < 10 years - Medical/Surgical History Hx Asthma: No Hx Chronic Respiratory Disease: No Hx Diabetes: No Hx Cardiac Disease: No Hx Renal Disease: No Hx Cirrhosis: No Hx Alcoholism: No Hx HIV/AIDS: No Hx Splenectomy or Spleen Trauma: No Other PMH: PMHx: Hyperlipidemia, lung CA. PSHx: bronchoscopy, cardioversion aflutter - Social History Smoking Status: Former smoker Constitutional: Initial Vital Signs Temperature (C) 37.1 C 06/03/17 21:51 Heart Rate 128 H 06/03/17 21:51 Respiratory Rate 16 06/03/17 21:51 Blood Pressure 122/74 H 06/03/17 21:51 O2 Sat (%) 93 06/03/17 21:51 O2 Delivery Mode Room Air Allergies/Adverse Reactions: No Known Allergies Allergy (Verified 05/12/17 10:26) Home Medications: Medication Instructions Recorded Acetaminophen [Tylenol ES 500 mg 1,000 mg PO Q6 PRN 04/30/17 (*)] Cholecalciferol Vit D3 [Vitamin D3 1,000 units PO DAILY 04/30/17 (*)] Fenofibrate [Tricor 145 mg (*)] 145 mg PO DAILY 04/30/17 Amoxicillin/Clavulanate Pot 875 mg PO BID #14 tab 05/04/17 [Augmentin 875 MG TAB (*)] LORazepam [Ativan (*)] 0.5 mg PO HS #30 tab 05/04/17 Ondansetron Odt [Zofran Odt 4 mg 4 mg PO Q4 PRN #30 tab 05/04/17 (*)] Sennosides/Docusate Sodium 1 - 2 tab PO BID #30 tab 05/04/17 [Senokot-S] traMADol [Ultram 50 mg (*)] 50 mg PO Q6HRS PRN #30 tab 05/04/17 Vicodin 5-300 mg Tablet PO Q8H PRN 05/12/17 Departure - Departure Referrals: Josafat Abreu MD [Primary Care Provider] - As per Instructions Physician Review and Approval Statement: 06/03/17 22:22 Portions of this note were transcribed by the director medical writing. I, Dr. Carola Banerjee, personally performed the history, physical exam, and medical decision- making; and confirmed the accuracy of the information in the transcribed note.
[2017-06-03] MEDS ORDERED: NS 1,000 ML IV ONE ×2 (22:32→22:34)
--- NOTE | 2017-06-03 22:32 | EDPHY ---
H & P Stated Complaint: Hx of lung CA, recent PNA c/admit to [facility] febrile, likely recurrence Time Seen by Provider: 06/03/17 22:22 HPI/ROS: HPI CHIEF COMPLAINT: Generalized weakness, fatigue, fever, postobstructive pneumonia admission recently [facility] HISTORY OF PRESENT ILLNESS: This patient is 62-year-old male, he has significant past medical history for lung cancer undergoing chemotherapy. Followed by [facility] by Dr. Shaw. He presents emergency room by private vehicle for generalized weakness nausea shortness of breath and thinks that he has pneumonia again. Had a fever at home tonight. He was recently [facility] for prolonged hospitalization for postobstructive pneumonia. He just completed a course of antibiotics yesterday. He is due to get a blood transfusion tomorrow. He was seen at Dr. Shaw office today. He began feeling ill shortly after the visit and decline quickly decided come the emergency room. Upon arrival to the emergency room is noted to be tachycardic, and ill appearing. Past Medical History: Lung cancer Past Surgical History: No recent surgery Social History: Denies daily use drugs alcohol tobacco products. Family History: Noncontributory ROS REVIEW OF SYSTEMS: A comprehensive 10 point review of systems is otherwise negative aside from elements mentioned in the history of present illness. Exam Constitutional appears ill, dehydrated, generalized weakness, triage nursing summary reviewed, vital signs reviewed, awake/alert. Eyes normal conjunctivae and sclera, EOMI, PERRLA. HENT normal inspection, atraumatic, moist mucus membranes, no epistaxis, neck supple/ no meningismus, no raccoon eyes. Respiratory clear to auscultation bilaterally, normal breath sounds, no respiratory distress, no wheezing. Cardiovascular tachycardic, regular rhythm, no murmur, no edema, distal pulses normal. Gastrointestinal soft, non-tender, no rebound, no guarding, normal bowel sounds, no distension, no pulsatile mass. Genitourinary no CVA tenderness. Musculoskeletal no midline vertebral tenderness, full range of motion, no calf swelling, no tenderness of extremities, no meningismus, good pulses, neurovascularly intact. Skin pink, warm, & dry, no rash, skin atraumatic. Neurologic awake, alert and oriented x 3, AAOx3, moves all 4 extremities equally, motor intact, sensory intact, CN II-XII intact, normal cerebellar, normal vision, normal speech. Psychiatric normal mood/affect. Heme/Lymph/Immune no lymphadenopathy. Differential Diagnosis: Includes but is not limited to in a particular order sepsis, bacteremia, recurrence of postobstructive pneumonia, dehydration, electrolyte disturbance Medical Decision Making: Plan for this patient IV establishment with IV fluid bolus full threat monitoring analyst EKG, blood cultures, lactic acid, chest x-ray most likely admission to hospital. Possible blood transfusion. Type and screen. Re-evaluation: 2348: Re-examination this time. Heart rate is improving with IV fluids. Final diagnosis anemia, dehydration, generalized weakness, left upper lobe collapse, most likely postobstructive pneumonia, lung cancer I spoke with the hospitalist service they agree to admit this patient. Patient be admitted to oncology floor. No evidence of severe sepsis. Lactic less than 2. Not febrile here. But was tachycardic. Blood cultures pulled. Broad- spectrum antibiotics given. IV vancomycin IV Zosyn. IV fluid bolus. Source: Patient - Personal History Current Tetanus/Diphtheria Vaccine: Yes Tetanus Vaccine Date: < 10 years - Medical/Surgical History Hx Asthma: No Hx Chronic Respiratory Disease: No Hx Diabetes: No Hx Cardiac Disease: No Hx Renal Disease: No Hx Cirrhosis: No Hx Alcoholism: No Hx HIV/AIDS: No Hx Splenectomy or Spleen Trauma: No Other PMH: PMHx: Hyperlipidemia, lung CA. PSHx: bronchoscopy, cardioversion aflutter - Social History Smoking Status: Former smoker Constitutional: Initial Vital Signs Temperature (C) 37.1 C 06/03/17 21:51 Heart Rate 128 H 06/03/17 21:51 Respiratory Rate 16 06/03/17 21:51 Blood Pressure 122/74 H 06/03/17 21:51 O2 Sat (%) 93 06/03/17 21:51 O2 Delivery Mode Room Air Allergies/Adverse Reactions: No Known Allergies Allergy (Verified 05/12/17 10:26) Home Medications: Medication Instructions Recorded Acetaminophen [Tylenol ES 500 mg 1,000 mg PO Q6 PRN 04/30/17 (*)] Cholecalciferol Vit D3 [Vitamin D3 1,000 units PO DAILY 04/30/17 (*)] Fenofibrate [Tricor 145 mg (*)] 145 mg PO DAILY 04/30/17 Amoxicillin/Clavulanate Pot 875 mg PO BID #14 tab 05/04/17 [Augmentin 875 MG TAB (*)] LORazepam [Ativan (*)] 0.5 mg PO HS #30 tab 05/04/17 Ondansetron Odt [Zofran Odt 4 mg 4 mg PO Q4 PRN #30 tab 05/04/17 (*)] Sennosides/Docusate Sodium 1 - 2 tab PO BID #30 tab 05/04/17 [Senokot-S] traMADol [Ultram 50 mg (*)] 50 mg PO Q6HRS PRN #30 tab 05/04/17 Vicodin 5-300 mg Tablet PO Q8H PRN 05/12/17 Medical Decision Making - Diagnostics Imaging Results: Imaging Impressions Chest X-Ray 06/03/17 22:32 Impression: 1. Increased area of atelectasis and consolidation in the left upper lobe, most likely representing worsening compression of the left upper lobe bronchus by known left hilar mass. 2. Subsequent loss of the left hemithorax volume with elevation of the hemidiaphragm. 3. Otherwise stable. - Data Points Laboratory Results: Laboratory Results 06/03/17 22:40 06/03/17 22:40 06/03/17 06/03/17 06/03/17 22:40 22:40 22:40 WBC RBC Hgb Hct MCV MCH MCHC RDW Plt Count MPV Neut % (Auto) Lymph % (Auto) Colbert % (Auto) Eos % (Auto) Baso % (Auto) Nucleat RBC Rel Count Absolute Neuts (auto) Absolute Lymphs (auto) Absolute Monos (auto) Absolute Eos (auto) Absolute Basos (auto) Absolute Nucleated RBC Immature Gran % Immature Gran # PT 17.0 SEC H SEC (12.0-15.0) INR 1.39 H (0.83-1.16) APTT 48.4 SEC H SEC (23.0-38.0) VBG Lactic Acid 0.8 mmol/L mmol/L (0.7-2.1) Sodium 132 mEq/L L mEq/L (134-144) Potassium 4.1 mEq/L mEq/L (3.5-5.2) Chloride 102 mEq/L mEq/L (97-110) Carbon Dioxide 20 mEq/l L mEq/l (22-31) Anion Gap 10 mEq/L mEq/L (8-16) BUN 11 mg/dL mg/dL (7-23) Creatinine 0.6 mg/dL L mg/dL (0.7-1.3) Estimated GFR > 60 Glucose 124 mg/dL H mg/dL (70-100) Calcium 8.3 mg/dL L mg/dL (8.5-10.4) Magnesium 1.7 mg/dL mg/dL (1.6-2.3) Total Bilirubin 0.8 mg/dL mg/dL (0.1-1.4) Conjugated Bilirubin 0.4 mg/dL mg/dL (0.0-0.5) Unconjugated Bilirubin 0.4 mg/dL mg/dL (0.0-1.1) AST 143 IU/L H IU/L (17-59) ALT 180 IU/L H IU/L (21-72) Alkaline Phosphatase 175 IU/L H IU/L (38-126) Troponin I < 0.012 ng/mL ng/mL (0.000-0.034) NT-Pro-B Natriuret Pep 96 pg/mL pg/mL (0-125) Total Protein 5.9 g/dL L g/dL (6.3-8.2) Albumin 2.7 g/dL L g/dL (3.5-5.0) Lipase 38 IU/L IU/L (23-300) 06/03/17 22:40 WBC 8.73 10^3/uL 10^3/uL (3.80-9.50) RBC 2.93 10^6/uL L 10^6/uL (4.40-6.38) Hgb 7.9 g/dL L g/dL (13.7-17.5) Hct 24.5 % L % (40.0-51.0) MCV 83.6 fL fL (81.5-99.8) MCH 27.0 pg L pg (27.9-34.1) MCHC 32.2 g/dL L g/dL (32.4-36.7) RDW 16.2 % H % (11.5-15.2) Plt Count 516 10^3/uL H 10^3/uL (150-400) MPV 8.3 fL L fL (8.7-11.7) Neut % (Auto) 77.3 % H % (39.3-74.2) Lymph % (Auto) 9.2 % L % (15.0-45.0) Colbert % (Auto) 10.0 % % (4.5-13.0) Eos % (Auto) 1.6 % % (0.6-7.6) Baso % (Auto) 0.3 % % (0.3-1.7) Nucleat RBC Rel Count 0.0 % % (0.0-0.2) Absolute Neuts (auto) 6.75 10^3/uL H 10^3/uL (1.70-6.50) Absolute Lymphs (auto) 0.80 10^3/uL L 10^3/uL (1.00-3.00) Absolute Monos (auto) 0.87 10^3/uL H 10^3/uL (0.30-0.80) Absolute Eos (auto) 0.14 10^3/uL 10^3/uL (0.03-0.40) Absolute Basos (auto) 0.03 10^3/uL 10^3/uL (0.02-0.10) Absolute Nucleated RBC 0.00 10^3/uL 10^3/uL (0-0.01) Immature Gran % 1.6 % H % (0.0-1.1) Immature Gran # 0.14 10^3/uL H 10^3/uL (0.00-0.10) PT INR APTT VBG Lactic Acid Sodium Potassium Chloride Carbon Dioxide Anion Gap BUN Creatinine Estimated GFR Glucose Calcium Magnesium Total Bilirubin Conjugated Bilirubin Unconjugated Bilirubin AST ALT Alkaline Phosphatase Troponin I NT-Pro-B Natriuret Pep Total Protein Albumin Lipase Medications Given: Discontinued Medications Sodium Chloride (Ns) 1,000 mls @ 0 mls/hr IV EDNOW ONE; Wide Open PRN Reason: Protocol Stop: 06/03/17 22:33 Last Admin: 06/03/17 22:35 Dose: 1,000 mls Departure - Departure Disposition: [facility] Acute Clinical Impression: Generalized weakness, Dehydration Anemia Qualifiers: Anemia type: unspecified type Qualified Code(s): D64.9 - Anemia, unspecified Pneumonia Qualifiers: Pneumonia type: due to unspecified organism Laterality: left Lung location: upper lobe of lung Qualified Code(s): J18.1 - Lobar pneumonia, unspecified organism Condition: Serious Referrals: Josafat Abreu MD [Primary Care Provider] - As per Instructions
[2017-06-03] MEDS ORDERED: HYDROmorphONE/DILAUDID 1 MG/ML INJ IVP ONE (22:43)
[2017-06-03] MEDS ORDERED: ONDANSETRON 4 MG/2 ML VIAL IVP ONE (22:44)
[2017-06-03 22:53] LABS: % IMMATURE GRANULYOCYTES 1.6 % (0.0-1.1); ABSOLUTE IMMATURE GRANULOCYTES 0.14 10^3/uL (0.00-0.10); ADD DIFF? NO; ADD MORPH? NO; ADD SCAN? NO; ATYPICAL LYMPHOCYTE FLAG 0 (0-99); FRAGMENT RBC FLAG 0 (0-99); HEMATOCRIT 24.5 % (40.0-51.0); HEMOGLOBIN 7.9 g/dL (13.7-17.5); LEFT SHIFT FLG 10 (0-99); LIPEMIA HEMOLYSIS FLAG 80 (0-99); MEAN CELL HEMOGLOBIN CONCENTR. 32.2 g/dL (32.4-36.7); MEAN CELL VOLUME 83.6 fL (81.5-99.8); MEAN PLATELET VOLUME 8.3 fL (8.7-11.7); PLATELET CLUMPS FLAG 20 (0-99); PLATELET COUNT 516 10^3/uL (150-400); RED BLOOD CELL COUNT 2.93 10^6/uL (4.40-6.38); RED CELL DISTRIBUTION WIDTH 16.2 % (11.5-15.2)
[2017-06-03] MEDS ORDERED: PIPERACILLIN/TAZO 4.5 GM/DEX 100 ML IV ONE (22:57)
[2017-06-03] MEDS ORDERED: VANCOMYCIN HCL/NORMAL SALINE 250 ML IV ONE (22:57)
[2017-06-03 23:00] LABS: INR 1.39 (0.83-1.16)
[2017-06-03] MEDS ORDERED: IOPAMIDOL (ISOVUE 370) 100 ML BTL IV ONE (23:00)
[2017-06-03 23:01] LABS: APTT 48.4 SEC (23.0-38.0)
[2017-06-03 23:15] LABS: ALANINE AMINOTRANSFERASE 180 IU/L (21-72); ALBUMIN 2.7 g/dL (3.5-5.0); ALKALINE PHOSPHATASE 175 IU/L (38-126); ANION GAP 10 mEq/L (8-16); ASPARTATE AMINOTRANSFERASE 143 IU/L (17-59); BILIRUBIN,TOTAL 0.8 mg/dL (0.1-1.4); BILIRUBIN-CONJUGATED 0.4 mg/dL (0.0-0.5); BILIRUBIN-UNCONJUGATED 0.4 mg/dL (0.0-1.1); CALCIUM 8.3 mg/dL (8.5-10.4); CARBON DIOXIDE 20 mEq/l (22-31); CHLORIDE 102 mEq/L (97-110); CREATININE 0.6 mg/dL (0.7-1.3); GLOMERULAR FILTRATION RATE > 60; GLUCOSE 124 mg/dL (70-100); MAGNESIUM 1.7 mg/dL (1.6-2.3); POTASSIUM 4.1 mEq/L (3.5-5.2); SODIUM 132 mEq/L (134-144); TOTAL PROTEIN 5.9 g/dL (6.3-8.2)
[2017-06-03 23:26] LABS: TROPONIN I < 0.012 ng/mL (0.000-0.034)
[2017-06-03 23:51] VITALS: RESP 18
[2017-06-04] MEDS ORDERED: ACETAMINOPHEN 325 MG TAB PO PRN (00:29)
[2017-06-04] MEDS ORDERED: ONDANSETRON 4 MG/2 ML VIAL IVP PRN (00:29)
[2017-06-04] MEDS ORDERED: ONDANSETRON DISINTEGRATING 4 MG TAB PO PRN ×2 (00:29→10:08)
[2017-06-04] MEDS ORDERED: HYDROCODONE/APAP 5/325 TAB PO PRN (00:29)
[2017-06-04] MEDS ORDERED: HYDROmorphONE/DILAUDID 1 MG/ML INJ IVP PRN (00:29)
[2017-06-04] MEDS ORDERED: NS 1,000 ML IV SCH (00:30)
[2017-06-04] MEDS ORDERED: VANCOMYCIN 1 GM in NS 250 ML IV ONE (00:30)
--- NOTE | 2017-06-04 01:04 | CPEKG ---
Heart Rate: 106 RR Interval: 566 P-R Interval: 148 QRSD Interval: 74 QT Interval: 348 QTC Interval: 463 P [place]: 55 QRS [place]: 54 T Wave [place]: 55 EKG Severity - OTHERWISE NORMAL ECG - EKG Impression: SINUS TACHYCARDIA Electronically Signed By: Ishaan Lehman 04-Jun-2017 07:14:16
[2017-06-04] MEDS: oxyCODONE IR 5 MG TAB PO PRN ×2 (02:22→09:09)
[2017-06-04 02:24] LABS: COLOR PALE YELLOW; LEUKOCYTE ESTERASE,URINE NEGATIVE (NEGATIVE); NITRITE,URINE NEGATIVE (NEGATIVE)
--- NOTE | 2017-06-04 02:58 | GHP ---
[f rep st] HISTORY AND PHYSICAL DATE OF ADMISSION: 06/03/2017 DATE OF SERVICE: 06/04/2017 SOURCE: Patient provides history. at bedside supplements history. Both appear reliable. Case discussed with ED provider. CHIEF COMPLAINT: Fever. HISTORY OF PRESENT ILLNESS: This is a very pleasant 62-year-old gentleman with unfortunate diagnosis of stage IIIB lung cancer who is currently on Tarceva therapy who presents to the emergency department with complaints of significant fatigue, exhaustion, and fever starting 1 day prior to admission. Patient was recently hospitalized at [facility] on 05/22/2017 following a bronchoscopy. Patient converted into atrial flutter. He was admitted and subsequently underwent cardioversion on 05/28/2017. Additionally, patient was treated for postobstructive pneumonia, and he was just recently discharged on 05/31/2017. [facility] records have been requested. Since that time, patient reports that he was feeling fine except for significant fatigue and until yesterday, patient had a fever to just over 101 Fahrenheit. He did not have any associated increased cough, rhinorrhea. No worsening shortness of breath from baseline, but he was noting a little bit of lightheadedness with positional changes. He also had been having some wheezing and then today, patient had a fever up to 102.7 with a heart rate in the one-teens and came to the emergency department for further evaluation. Patient denies any chest pain, palpitations. No rhinorrhea. No sore throat. No exposure to known sick contacts. Patient reported to have taken a full course of antibiotic therapy, but unsure of antibiotic. REVIEW OF SYSTEMS: GI: Patient notes chronic constipation. No abdominal pain. No melena or hematochezia. Patient with some chronic bilateral hand pain. Otherwise, remainder review of systems is negative except as noted above in HPI. ALLERGIES: No known drug allergies. HOME MEDICATIONS: 1. Tramadol 50 mg p.o. q.6 hours p.r.n. for pain. 2. Vicodin 5/300 q.8 hours p.r.n. 3. Senokot 1-2 tabs p.o. b.i.d. 4. Zofran ODT 4 q.4 p.r.n. 5. Ativan 0.5 mg p.o. q.h.s. 6. Tricor 145 mg p.o. daily. 7. Vitamin D3 at 1000 units daily. 8. Augmentin 875 mg p.o. b.i.d., reported completed. 9. Tylenol p.r.n. PAST MEDICAL HISTORY: Significant for stage IIIB lung cancer with history of postobstructive pneumonia. Anemia of chronic disease, generalized weakness, chronic pain, degenerative disk disease, atrial flutter status post cardioversion. PAST SURGICAL HISTORY: Significant for bronchoscopy, cardioversion, and cholecystectomy. FAMILY HISTORY: Negative for lung cancer. SOCIAL HISTORY: Patient is , lives with his . He does not currently smoke, drink, or do drugs. He quit smoking more than 28 years ago. CODE STATUS: , Anupama Salgado, is MD GEE. Patient is a full code. PHYSICAL EXAMINATION: VITALS: On arrival to the emergency department: Blood pressure 122/74, heart rate 128, respiratory rate 16, O2 saturation 93% on room air, temperature 37.1. Vitals at time of interview: Blood pressure 127/86, heart rate 110, respiratory rate 18, O2 saturation 95% on room air, 37 degree Celsius. GENERAL: No acute distress. Pleasant, frail, chronically ill appearing gentleman is lying quietly in bed. at bedside. He is awake and interactive, but appears quite fatigued and pale. SKIN: No apparent rashes or sores on exposed extremities. HEAD: Normocephalic, atraumatic. EYES: Extraocular muscles grossly intact. Pupils equal, round, reactive to light bilaterally and symmetric. No scleral icterus or conjunctival injection. ENT: Mucous membranes appear slightly dry. No oropharyngeal erythema or exudates. NECK: Supple. Trachea midline. CV: Tachycardic in the 100 with regular rhythm. No murmurs, rubs, or gallops appreciated. RESPIRATORY: Decreased inspiratory effort. No wheezes, rales, or rhonchi appreciated. ABDOMEN: Positive bowel sounds. Soft, nontender to palpation. No rebound, guarding, or masses appreciated. EXTREMITIES: No cyanosis, clubbing, or edema appreciated. Patient with 1+ pedal pulses bilaterally. NEURO: Grossly nonfocal. No facial drooping. Patient is awake, alert, oriented x3. Moves all extremities with generalized weakness. PSYCH: Patient's thought process, content, and questions are appropriate. He does appear fatigued, but mood and affect appropriate. LABORATORY STUDIES: WBC 8.73, H and H 7.9 and 24.5, MCV 83.6, platelet count 516. PT 17.0. INR 1.37. PTT is 48.4. VBG lactic acid 0.8. Sodium is 132, potassium 4.1, chloride 102, CO2 is 20, BUN is 11, creatinine 0.6, glucose 124. Calcium 8.3. Magnesium 1.7. Total bilirubin 0.8, ALT is 180, AST is 143, alkaline phosphatase is 175. Troponin is negative. BNP 96, total protein 5.9, albumin 2.7. Lipase 338. EKG reviewed myself shows sinus tachycardia in the low 100s. QTc is 463. Less than [address] depression in lateral leads, which appears similar to previous EKG on 04/30/2017. Otherwise normal EKG. No acute findings. CT of the chest negative for PE. Interval increase in middle and left upper lobe atelectasis and consolidation due to central compression. Multiple areas of patchy pulmonary nodules throughout both lungs, right worse than left. Increased amount of hilar mediastinal lymphadenopathy. New left-sided pleural effusion. ASSESSMENT AND PLAN: A pleasant 62-year-old gentleman with history of stage IIIB lung cancer on Tarceva who presents with complaints of fever. 1. Fever. Nothing documented since arrival to the emergency department. Patient was initially tachycardic without any other qualifying factors for systemic inflammatory response syndrome criteria. Blood cultures x2 have been obtained. Patient has been started on vancomycin and Zosyn with recent history of postobstructive pneumonia treatment. Lactate is negative. Will continue with IV fluids as patient reports he is feeling a little better. Infectious Disease consult entered in for the morning. 2. Left upper lung consolidation consistent with patient's history of lung cancer. Antibiotic coverage as above for potential postobstructive pneumonia. 3. Pleural effusion secondary to malignancy. Patient saturating well on room air. Will continue to monitor clinically. 4. Lung cancer, stage IIIB. Continue Tarceva. Oncology consult tomorrow. 5. Anemia, likely of chronic disease. Patient without any active bleeding. Does not meet criteria for transfusion at this point. Will continue monitor with a.m. CBC. 6. Chronic pain. Resume patient's home medications. 7. Thrombocytosis, likely reactive. Will continue to monitor and continue IV fluids. 8. Hyponatremia, likely secondary to hypovolemia. Will plan to repeat BMP in the morning. Creatinine is within normal limits. 9. Hyperglycemia is nonfasting lab. Will plan to repeat in the morning. No history of diabetes. Hold off on insulin sliding scale. 10. Transaminitis. No previous LFTs available for comparison at this time. Will repeat LFTs in the morning. Continue with IV fluids. Baseline LFTs are unknown, possibly related to Tarceva versus systemic inflammatory response syndrome or other causes. Will minimize hepatotoxic medications and repeat LFTs in the morning. Continue with IV fluid hydration. 11. Hypoalbuminemia, likely related to patient's chronic medical condition. 12. Fluid, electrolyte, nutrition: Continue with IV fluid hydration. Encourage oral intake as tolerated. Replace electrolytes as needed and repeat sodium in the morning. Diet: Advance as tolerated. 13. Prophylaxis. SCDs and Lovenox. 14. Code status is full. DISPOSITION: Patient admitted to inpatient status on the oncology floor. Given his significant medical history and continued failure to thrive, patient will likely remain in the hospital for greater than 2 midnights. /[id number]/MODL MTDD
[2017-06-04 04:47] LABS: % IMMATURE GRANULYOCYTES 1.5 % (0.0-1.1); ABSOLUTE IMMATURE GRANULOCYTES 0.12 10^3/uL (0.00-0.10); ADD DIFF? NO; ADD MORPH? NO; ADD SCAN? NO; ATYPICAL LYMPHOCYTE FLAG 30 (0-99); FRAGMENT RBC FLAG 0 (0-99); HEMATOCRIT 22.9 % (40.0-51.0); HEMOGLOBIN 7.3 g/dL (13.7-17.5); LEFT SHIFT FLG 10 (0-99); LIPEMIA HEMOLYSIS FLAG 80 (0-99); MEAN CELL HEMOGLOBIN 26.9 pg (27.9-34.1); MEAN CELL HEMOGLOBIN CONCENTR. 31.9 g/dL (32.4-36.7); MEAN CELL VOLUME 84.5 fL (81.5-99.8); MEAN PLATELET VOLUME 8.3 fL (8.7-11.7); PLATELET CLUMPS FLAG 0 (0-99); PLATELET COUNT 405 10^3/uL (150-400); RED BLOOD CELL COUNT 2.71 10^6/uL (4.40-6.38); RED CELL DISTRIBUTION WIDTH 16.3 % (11.5-15.2)
[2017-06-04 04:57] LABS: INR 1.39 (0.83-1.16)
[2017-06-04 05:00] LABS: ANION GAP 9 mEq/L (8-16); CALCIUM 8.2 mg/dL (8.5-10.4); CARBON DIOXIDE 20 mEq/l (22-31); CHLORIDE 102 mEq/L (97-110); CREATININE 0.7 mg/dL (0.7-1.3); GLOMERULAR FILTRATION RATE > 60; GLUCOSE 120 mg/dL (70-100); MAGNESIUM 1.7 mg/dL (1.6-2.3); POTASSIUM 3.9 mEq/L (3.5-5.2); SODIUM 131 mEq/L (134-144)
[2017-06-04] MEDS: PIPERACILLIN/TAZO 3.375 GM/DEX 50 ML IV SCH ×2 (05:37→16:38)
[2017-06-04] MEDS: LORazepam 0.5 MG TAB PO PRN ×2 (05:58→09:09)
[2017-06-04] MEDS ORDERED: ENOXAPARIN 40 MG/0.4 ML SYR SC SCH (09:00)
[2017-06-04] MEDS ORDERED: oxyCODONE IR 5 MG TAB PO PRN (10:08)
[2017-06-04] MEDS ORDERED: LORazepam 0.5 MG TAB PO PRN ×3 (10:08→12:02)
[2017-06-04] MEDS ORDERED: CHOLECALCIFEROL VIT D3 1,000 UNITS TAB PO SCH (10:15)
[2017-06-04] MEDS ORDERED: DABIGATRAN ETEXILATE MESYL 150 MG CAP PO SCH (10:15)
[2017-06-04] MEDS ORDERED: DILTIAZEM CD 120 MG CAP PO SCH (10:15)
--- NOTE | 2017-06-04 10:16 | HOSPPROG ---
Hospitalist Progress Note Assessment/Plan: #Fatigue: due to multiple hospitalizations, recent hospitalizations #Fever: recent stay for post-obstructive PNA at [facility], awaiting OSH records. CTA negative for PE, but persistent compression, new pleural effusion -d/w ID and agree to cont Augmentin. Has appt for stenting next week, XRT #Normocytic anemia: transfuse 1 unit today #Anxiety: PRN Ativan #Hand tingling: MRI pending, but he would like to defer to outpatient #Diet: regular #DVt ppx: SCDs #Disp: can DC today after blood transfusion Subjective: very fatigued. Nonproductive cough Objective: Vital Signs Temp Pulse Resp BP Pulse Ox 36.9 C 97 18 128/74 H 98 06/04/17 08:17 06/04/17 08:17 06/04/17 08:17 06/04/17 08:17 06/04/17 08:17 Laboratory Results 06/04/17 04:34 06/04/17 04:34 06/03/17 06/04/17 06/05/17 05:59 05:59 05:59 Intake Total 2700 229 Output Total 500 Balance 2200 229 PT 17.0 SEC (12.0-15.0) H 06/04/17 04:34 INR 1.39 (0.83-1.16) H 06/04/17 04:34 - Physical Exam Constitutional: other (thin, fatigued) Eyes: PERRL Ears, Nose, Mouth, Throat: moist mucous membranes Cardiovascular: regular rate and rhythym Respiratory: no respiratory distress Gastrointestinal: normoactive bowel sounds Genitourinary: no bladder fullness Skin: warm Musculoskeletal: full muscle strength Neurologic: AAOx3, CN II-XII Intact Psychiatric: interacting appropriately, anxious, flat affect ICD10 Worksheet Patient Problems: Problems Problem Status Onset Anemia Acute Dehydration Acute Generalized weakness Acute Pneumonia Acute Lung cancer Acute Vomiting Acute
--- NOTE | 2017-06-04 11:34 | SOAPPROG ---
SOAP Progress Note Assessment/Plan: Assessment: 1.) NSCLC- Adenocarcinoma, EGFR (+), Stage IIIB as noted above, on Erlotinib ( Tarceva) , with Erlotinib intolerance at full dose, now with complicating ELKE post-obstructive pneumonia, after recent hospitalization at , having briefly been off Augmentin with recurrence of infectious sx. report/discharge summary noted. D/W [facility] ID who recommends continuing Augmentin therapy until planned Bronch/possible stent placement at next Thursday. Pt to continue on Erlotinib, at 100 mg /D as of starting today. Plans for outpt. Rad. Oncology Consult noted and discussed with pt. and family at bedside. 2.) Anemia related to cancer/its tx. For transfusion today. 3.) A. flutter, now on Diltiazem 4.) Hypoxemia- will likely benefit from home Oxygen therapy for ambulatory usage @ home also. 5.) Anxiety 6.) Thoracic pain with UE sensory deficit: will order Thoracic Spine MRI for evaluation of mets. Plan: See above. Transfusion PRBCS MRI of T spine, today if feasible. Convert to Augmentin po as per careful discussion with ID service. Consider discharge home today, if stable Follow up at next week and to continue [facility] Med Onc. and Rad. Onc at [facility] facility. Erlotinib 100 mg QD. 06/04/17 11:39 Subjective: NSCLC - ELKE diagnosis 02/23/17, [id number], Stage IIIB, Adenocarcinoma EGFR (+), PDL-1 (neg.) On Erlotinib (Tarceva) with initial Tx. toxicity on 150 mg/Day, reduced to 75 mg QD, and now advanced to 100 mg/D. Post-obstructive pneumonia ELKE - for attempt at stenting of ELKE bronchus next Thursday at [facility]. S: Pt. had been on oral antibiotics until 10/3 AM after hospitalization at for post obstructive pneumonia complicated by Afib/flutter. Yesterday he developed increased cough, dyspnea, fever leading to [facility] ER evaluation and admission last evening. Now doing better, with multiple family members at the bedside. He reports his resp. sx are improved. Objective: VSS as noted here, afebrile, RR 18, in NAD, with family at bedside Alert, conversant, and in NAD. HEENT-NC/AT anicteric, no facial assymetry, no oral lesions, mucosa intact Neck- supple Chest- minimal ELKE anterior diminished breath sounds with rhonchi, no pleural friction rub CVS- RSR, no extra HS ABD- thin, soft NT, no mass or HSM EXT- no edema, skin intact, and without ecchymoses Labs: Hgb 7.3 Na 131, Increased alk phos, ALT and AST noted. CXR: consolidation of ELKE noted. CT chest: ELKE consolidation, L hilar mass noted, and ELKE bronchus mass noted. Small pleural effusions. Vital Signs Temp Pulse Resp BP Pulse Ox 36.9 C 97 18 128/74 H 98 06/04/17 08:17 06/04/17 08:17 06/04/17 08:17 06/04/17 08:17 06/04/17 08:17 Laboratory Results 06/04/17 04:34 06/04/17 04:34 06/03/17 06/04/17 06/05/17 05:59 05:59 05:59 Intake Total 2700 229 Output Total 500 Balance 2200 229 PT 17.0 SEC (12.0-15.0) H 06/04/17 04:34 INR 1.39 (0.83-1.16) H 06/04/17 04:34 ICD10 Worksheet Patient Problems: Problems Problem Status Onset Anemia Acute Dehydration Acute Generalized weakness Acute Pneumonia Acute Lung cancer Acute Vomiting Acute
[2017-06-04] MEDS ORDERED: VANCOMYCIN HCL/NORMAL SALINE 250 ML IV SCH (12:00)
--- NOTE | 2017-06-04 14:05 | PDMN ---
Medical Necessity Medical necessity: Patient meets INPT criteria per [facility] ( remains tachycardiac to 113 after IV hydration; hx of stage III B lung cancer on Tarceva therapy w/ c/o significant fatigue, exhaustion, fever. Recent T 102.7; pleural effusion on CT; anemia, hyponatremia, thrombocytosis, transaminitis; anticipated LOS > 2 midnights for IV hydration, antibiotics, transfusion.)
--- NOTE | 2017-06-04 16:19 | ASDISCHSUM ---
Discharge Information Plan Status: Medically Cleared to Leave: Discharge Date: CM D/C Disposition: ADT D/C Disposition:Home, Routine, Self-Care Projected Discharge Date: Transportation at D/C: Discharge Delay Reason: Follow-Up Date: Discharge Slot: Final Diagnosis: Placement Information Patient Contact Information Contact Name:CHANCE Relationship: Address:[address] [place] [address] City:[facility] Phone: State/Zip Code:[place] [address] Email: Financial Information Financial Class:HMO and PPO Plans Primary Plan Desc:KEV NAYLOR Primary Plan Number:[id number] Secondary Plan Desc: Secondary Plan Number: Assessment Information [facility] CM Progress Note CM Note CM Note Notes: Pt admitted for fatigue and fever. Pt will DC today with no needs. Date Signed: 06/04/2017 04:18 PM Electronically Signed By:Rubia Olvera LCSW Intervention Information
[2017-06-04 16:22] VITALS: BP 126/73; PULSE 95; TEMP 98.8; O2SAT 93
--- NOTE | 2017-06-04 19:31 | GDS ---
[f rep st] DISCHARGE SUMMARY DISCHARGE DIAGNOSES: 1. Nonsmall-cell lung cancer, adenocarcinoma, EGFR positive, stage IIIB, on Tarceva. 2. Left upper lobe postobstructive pneumonia. 3. Normocytic anemia. 4. Atrial flutter, status post cardioversion. 5. Reported hypoxia, per family, at home. 6. Anxiety. 7. Bilateral hand tingling and numbness. HISTORY OF PRESENT ILLNESS: A 62-year-old man with history of a nonsmall-cell lung cancer, adenocarc inoma stage IIIB, who presents today with persistent fatigue and cough. He was initially hospitalize d here at [facility] in early May for postobstructive pneumonia. He was readmitted to [facility] 05/22/17 aft er bronchoscopy. That hospitalization was complicated by atrial flutter, status post cardioversion. He was discharged home on 05/31/17 without antibiotics. He called his primary oncologist, Dr. Jhony chapin, yesterday with a fever of 101. He has not had increased cough or shortness of breath. Denies any ill contact. Dr. Shaw wrote for Augmentin, which he started taking yesterday. HOSPITAL COURSE BY PROBLEM: 1. Fever: Per patient report, none here. His respiratory PCR is negative. Blood cultures are nega tive at this point. I spoke with Dr. Wilson of Infectious Disease, who agrees to continue Augmentin for another week. 2. Left upper lobe postobstructive pneumonia: Again, do not think this infection has been worsened, but will continue antibiotics. Main intervention warranted is stenting, given atelectasis and compr ession. He is scheduled for appointments next week at [facility] for this procedure. Again, resume Augmentin. 3. Normocytic anemia secondary to chemotherapy: We will transfuse 1 unit. 4. Upper extremity paresthesias: Concern for thoracic involvement. MRI was ordered here, but patie nt would like to go home, and he can have this done as an outpatient. 5. Chronic pain: Resume home medications. 6. Anxiety: PRN Ativan. 7. Hypovolemic hyponatremia: We gave IV fluids here. Encourage p.o. intake at home. 8. Pleural effusion: This was seen on CT here. It was negative for pulmonary embolism. Compared t [facility] records, this is unchanged. Plan again as stated above. DISPOSITION: Patient is stable for discharge. NEW MEDICATIONS: None. FOLLOWUP: 1. His oncologist at [facility] for stent placement. 2. Followup for radiation. 3. Outpatient thoracic MRI. 4. Repeat CBC per his oncologist. MEDICATIONS: Continue Augmentin for 1 week. /[id number]/MODL
[2017-06-04] MEDS ORDERED: Erlotinib Hcl [Tarceva] 100 MG PO SCH (21:00)
[2017-06-04] MEDS ORDERED: FENOFIBRATE 145 MG TAB PO SCH (21:00)
== END 2017-06-04 17:08 | disposition home or self-care (01) | DRG 180 ==
LOC: F1N 06-04 01:46
PROVIDERS: ADMIT Family Medicine; ATTEND Family Medicine
PROC: 30233N1 Transfusion of Nonautologous Red Blood Cells into Peripheral Vein, Percutaneous Approach (ICD-10-PCS; principal; 2017-06-04)
DX: C34.90 Malignant neoplasm of unspecified part of unspecified bronchus or lung (principal); J18.1 Lobar pneumonia, unspecified organism; J90 Pleural effusion, not elsewhere classified; E87.1 Hypo-osmolality and hyponatremia; I48.91 Unspecified atrial fibrillation; D64.9 Anemia, unspecified; F41.9 Anxiety disorder, unspecified; G89.29 Other chronic pain; E86.1 Hypovolemia; E78.5 Hyperlipidemia, unspecified; Z87.891 Personal history of nicotine dependence
CPT/HCPCS: 97166-GO; J1170; J2405; J2543; J3370; P9016; Q9967

== ENCOUNTER 2017-06-21 11:28 | Inpatient (IN) | payer OTHER ==
[2017-06-21] MEDS ORDERED: NS 1,000 ML IV ONE ×3 (11:36→12:03)
--- NOTE | 2017-06-21 11:39 | EDPHY ---
H & P Stated Complaint: hx afib/ with cardioversion/tachycardia/hypotension HPI/ROS: HPI CHIEF COMPLAINT: Tachycardia, hypertension, generalized weakness, fever HISTORY OF PRESENT ILLNESS: This patient very pleasant 62-year-old male, history of lung cancer who with recent hospitalization for sepsis and postobstructive pneumonia now has a stent placed. He presents back to the emergency room generalized weakness, palpitations, fast heart rate, lower oxygen level shortness of breath and fever at home 101. Denies chest pain. Took his pulse ox reading at home noticed his heart rates in the 150s. He took 240 mg of p. o. diltiazem without any relief. Decided come the emergency room if he is feeling worse. Past Medical History: Lung cancer, postobstructive pneumonia, recent hospitalization for sepsis, hyponatremia, hypokalemia Past Surgical History: Pulmonary stent Social History: Denies drugs alcohol tobacco products. Family History: Noncontributory. ROS REVIEW OF SYSTEMS: A comprehensive 10 point review of systems is otherwise negative aside from elements mentioned in the history of present illness. Exam Constitutional appears chronically ill, cachectic, malnourished triage nursing summary reviewed, vital signs reviewed, awake/alert. Eyes normal conjunctivae and sclera, EOMI, PERRLA. HENT normal inspection, atraumatic, moist mucus membranes, no epistaxis, neck supple/ no meningismus, no raccoon eyes. Respiratory clear to auscultation bilaterally, normal breath sounds, no respiratory distress, no wheezing. Cardiovascular tachycardic , regular rhythm, no murmur, no edema, distal pulses normal. Gastrointestinal soft, non-tender, no rebound, no guarding, normal bowel sounds, no distension, no pulsatile mass. Genitourinary no CVA tenderness. Musculoskeletal no midline vertebral tenderness, full range of motion, no calf swelling, no tenderness of extremities, no meningismus, good pulses, neurovascularly intact. Skin pink, warm, & dry, no rash, skin atraumatic. Neurologic awake, alert and oriented x 3, AAOx3, moves all 4 extremities equally, motor intact, sensory intact, CN II-XII intact, normal cerebellar, normal vision, normal speech. Psychiatric normal mood/affect. Heme/Lymph/Immune no lymphadenopathy. Differential Diagnosis: Includes but is not limited to in a particular order sepsis, dehydration, electrolyte disturbance, cardiac arrhythmia, SVT, AFib, a flutter with RVR Medical Decision Making: Plan for this patient IV establishment with blood work , IV fluid bolus, blood cultures, lactic acid, IV Zosyn for broad-spectrum antibiotic coverage, chest x-ray, rule out pneumonia again, diltiazem bolus and diltiazem drip. Re-evaluation: EKG interpretation by me on record in [employer] system. Impression time of EKG 11:41 a.m., this is SVT rate of 158. No ST elevation. 1312: Patient's heart rate down to 120. Blood pressure stable 110/86. On diltiazem drip. Due to the patient's complicated medical history initial hypotension and tachycardia and possible sepsis with a fever at home I have admitted him to the step-down unit under the care of Dr. Davenport. Will additionally consult Cardiology. Spoke with Dr. Alegria cardiology. They will evaluate the patient as well. Patient here with Tachycardia, Afib, Now controlled on Dilt. Got IV fluid bolus , Most likely septic again given Fever at home. Fever may of prompted afib with RVR. No longer hypotensive. Getting IV Fluids, IV zosyn, IV Dilt. Admit for Afib with RVR, Sepsis, Possible Post obs pna again. Dilt gtt Continue. Source: Patient - Personal History Current Tetanus/Diphtheria Vaccine: Yes Tetanus Vaccine Date: < 10 years - Medical/Surgical History Hx Asthma: No Hx Chronic Respiratory Disease: No Hx Diabetes: No Hx Cardiac Disease: Yes Hx Renal Disease: No Hx Cirrhosis: No Hx Alcoholism: No Hx HIV/AIDS: No Hx Splenectomy or Spleen Trauma: No Other PMH: PMHx: Hyperlipidemia, lung CA chemo oral Tarceva. PSHx: bronchoscopy , cardioversion aflutter - Social History Smoking Status: Former smoker Constitutional: Initial Vital Signs Temperature (C) 36.5 C 06/21/17 11:33 Heart Rate 159 H 06/21/17 11:33 Respiratory Rate 20 06/21/17 11:33 Blood Pressure 75/64 L 06/21/17 11:33 O2 Sat (%) 92 06/21/17 11:33 O2 Delivery Mode Nasal Cannula O2 (L/minute) 4 Allergies/Adverse Reactions: No Known Allergies Allergy (Verified 06/21/17 11:32) Home Medications: Medication Instructions Recorded Cholecalciferol Vit D3 [Vitamin D3 1,000 units PO DAILY 04/30/17 (*)] Amoxicillin/Clavulanate Pot 875 mg PO BID #14 tab 05/04/17 [Augmentin 875 MG TAB (*)] Dabigatran Etexilate Mesyl 150 mg PO BID 06/04/17 [Pradaxa 150 MG (*)] Diltiazem HCl [Cartia Xt] 120 mg PO DAILY 06/04/17 Erlotinib HCl [Tarceva] 100 mg PO HS 06/04/17 LORazepam [Ativan (*)] 0.5 - 1 mg PO HS PRN 06/04/17 Ondansetron Odt [Zofran Odt 4 mg 4 mg PO DAILY PRN 06/04/17 (*)] oxyCODONE IR [Oxycodone Ir (*)] 5 mg PO Q4 PRN 06/04/17 FENOFIBRATE 160 mg PO HS 06/21/17 Polyethylene Glycol 3350 [Miralax 17 gm PO DAILY 06/21/17 17 gm (*)] Medical Decision Making - Data Points Laboratory Results: Laboratory Results 06/21/17 11:45 06/21/17 11:45 Medications Given: Dabigatran (Pradaxa) 150 mg PO BID [facility] Stop: 12/18/17 20:59 Last Admin: 06/21/17 20:49 Dose: 150 mg Piperacillin/Tazobactam/Dextrose (Zosyn 3.375 Gm (Premix)) 50 mls @ 100 mls/hr IV Q6HRS AGUSTIN PRN Reason: Protocol Stop: 07/21/17 17:59 Last Admin: 06/22/17 06:03 Dose: 50 mls Lorazepam (Ativan) 0.5 - 1 mg PO HS PRN PRN Reason: 0.5mg Sleep, 1mg Nausea Stop: 12/18/17 13:41 Last Admin: 06/21/17 21:35 Dose: 0.5 mg Miscellaneous Medication (Erlotinib Hcl [Tarceva]) 100 mg PO HS [facility] Stop: 12/18/17 20:59 Last Admin: 06/21/17 20:58 Dose: Not Given Oxycodone HCl (Oxycodone Ir) 5 mg PO Q4 PRN PRN Reason: Pain, Severe Stop: 07/01/17 13:41 Last Admin: 06/22/17 08:14 Dose: 5 mg Discontinued Medications Sodium Chloride (Ns) 1,000 mls @ 0 mls/hr IV EDNOW ONE; Wide Open PRN Reason: Protocol Stop: 06/21/17 11:37 Last Admin: 06/21/17 11:50 Dose: 1,000 mls Diltiazem HCl 125 mg/ Dextrose 125 mls @ 0 mls/hr IV EDNOW ONE; As Directed PRN Reason: Protocol Stop: 06/21/17 11:46 Last Admin: 06/21/17 12:15 Dose: 125 mls Sodium Chloride (Ns) 1,000 mls @ 0 mls/hr IV ONCE ONE PRN Reason: Wide Open Stop: 06/21/17 11:46 Last Admin: 06/21/17 12:35 Dose: 1,000 mls Piperacillin/Tazobactam/Dextrose (Zosyn (Premix)) 100 mls @ 200 mls/hr IV EDNOW ONE PRN Reason: Protocol Stop: 06/21/17 12:14 Last Admin: 06/21/17 12:34 Dose: 100 mls Sodium Chloride (Ns) 1,000 mls @ 0 mls/hr IV ONCE ONE PRN Reason: Wide Open Stop: 06/21/17 12:04 Last Admin: 06/21/17 12:44 Dose: Not Given Lorazepam (Ativan Injection) 1 mg IVP EDNOW ONE Stop: 06/21/17 11:47 Last Admin: 06/21/17 11:50 Dose: 1 mg Miscellaneous Medication (Fenofibrate [Fenofibrate]) 160 mg PO HS AGUSTIN Stop: 12/18/17 20:59 Last Admin: 06/21/17 22:02 Dose: Not Given Oxycodone HCl (Oxycodone Ir) 5 mg PO EDNOW ONE Stop: 06/21/17 13:01 Last Admin: 06/21/17 13:06 Dose: 5 mg Departure - Departure Disposition: Home, Routine, Self-Care Clinical Impression: Atrial fibrillation with RVR Sepsis Qualifiers: Sepsis type: sepsis due to unspecified organism Qualified Code(s): A41.9 - Sepsis, unspecified organism Condition: Good
--- NOTE | 2017-06-21 11:43 | CPEKG ---
Heart Rate: 158 RR Interval: 380 P-R Interval: 92 QRSD Interval: 76 QT Interval: 320 QTC Interval: 519 P [place]: 0 QRS [place]: 36 T Wave [place]: 79 EKG Severity - ABNORMAL ECG - EKG Impression: SUPRAVENTRICULAR TACHYCARDIA EKG Impression: VENTRICULAR PREMATURE COMPLEX EKG Impression: CONSIDER POSTERIOR INFARCT EKG Impression: REPOLARIZATION ABNORMALITY, PROB RATE RELATED Electronically Signed By: Ishaan Lehman 21-Jun-2017 15:24:55
[2017-06-21] MEDS ORDERED: PIPERACILLIN/TAZO 4.5 GM/DEX 100 ML IV ONE (11:45)
[2017-06-21] MEDS ORDERED: DILTIAZEM 125 MG in D5W 125 ML IV ONE (11:45)
[2017-06-21] MEDS ORDERED: LORazepam 2 MG/ML INJ IVP ONE (11:46)
[2017-06-21 12:00] LABS: % IMMATURE GRANULYOCYTES 0.8 % (0.0-1.1); ABSOLUTE IMMATURE GRANULOCYTES 0.07 10^3/uL (0.00-0.10); ADD DIFF? NO; ADD MORPH? NO; ADD SCAN? NO; ATYPICAL LYMPHOCYTE FLAG 10 (0-99); FRAGMENT RBC FLAG 0 (0-99); HEMATOCRIT 30.9 % (40.0-51.0); HEMOGLOBIN 9.8 g/dL (13.7-17.5); LEFT SHIFT FLG 10 (0-99); LIPEMIA HEMOLYSIS FLAG 80 (0-99); MEAN CELL HEMOGLOBIN 26.8 pg (27.9-34.1); MEAN CELL HEMOGLOBIN CONCENTR. 31.7 g/dL (32.4-36.7); MEAN CELL VOLUME 84.4 fL (81.5-99.8); PLATELET CLUMPS FLAG 10 (0-99); PLATELET COUNT 478 10^3/uL (150-400); RED BLOOD CELL COUNT 3.66 10^6/uL (4.40-6.38); RED CELL DISTRIBUTION WIDTH 17.1 % (11.5-15.2)
[2017-06-21 12:05] LABS: INR 1.32 (0.83-1.16); PROTIME(PATIENT) 16.4 SEC (12.0-15.0)
[2017-06-21 12:06] LABS: APTT 53.9 SEC (23.0-38.0)
[2017-06-21 12:13] LABS: ALANINE AMINOTRANSFERASE 98 IU/L (21-72); ALKALINE PHOSPHATASE 174 IU/L (38-126); ANION GAP 17 mEq/L (8-16); ASPARTATE AMINOTRANSFERASE 57 IU/L (17-59); BILIRUBIN,TOTAL 0.7 mg/dL (0.1-1.4); BILIRUBIN-CONJUGATED 0.3 mg/dL (0.0-0.5); BILIRUBIN-UNCONJUGATED 0.4 mg/dL (0.0-1.1); CALCIUM 8.9 mg/dL (8.5-10.4); CARBON DIOXIDE 23 mEq/l (22-31); CHLORIDE 95 mEq/L (97-110); CREATININE 0.6 mg/dL (0.7-1.3); GLOMERULAR FILTRATION RATE > 60; GLUCOSE 164 mg/dL (70-100); MAGNESIUM 1.8 mg/dL (1.6-2.3); POTASSIUM 4.2 mEq/L (3.5-5.2); SODIUM 135 mEq/L (134-144); TOTAL PROTEIN 6.7 g/dL (6.3-8.2)
[2017-06-21 12:24] LABS: TROPONIN I < 0.012 ng/mL (0.000-0.034)
[2017-06-21] MEDS ORDERED: oxyCODONE IR 5 MG TAB PO ONE (13:00)
[2017-06-21] MEDS ORDERED: ONDANSETRON 4 MG/2 ML VIAL IVP PRN (14:32)
[2017-06-21] MEDS ORDERED: ZOLPIDEM TARTRATE 5 MG TAB PO PRN (14:32)
[2017-06-21] MEDS ORDERED: ALBUTEROL 200 PUFFS/18 GM MDI IH PRN (14:32)
[2017-06-21] MEDS ORDERED: ACETAMINOPHEN 325 MG TAB PO PRN (14:32)
--- NOTE | 2017-06-21 14:42 | PDGENHP ---
History and Physical History and Physical: CC: Fever, rapid palpitations, short of breath HISTORY: Mr. Salgado has an unfortunate history of advanced lung cancer and has been having recurrent episodes of what appeared to be post obstructive bronchopneumonia. He had been here just recently discharged June 03 with 1 of these recurrent episodes where he responded well to Zosyn. No organisms have been identified in these recurrent infections. He was at home doing reasonably well taking Augmentin twice daily. This medicine was completed 5 days ago. 3 days ago he started to have some cough and chills and was noted to have 102 degree fever. Last night again he had some fevers and worsening cough and today with ongoing cough and fever developed rapid palpitations and his pulse oximeter showed is pulse in the 150s. He was mildly short of breath but no chest pain such as angina or otherwise. He has presented to the ER where he arrived here with rapid atrial fibrillation and some low blood pressures. He has been resuscitated with fluids and treated with diltiazem here and is improving with the better vital signs. He still feels quite weak however. ROS: He has ongoing neuropathy symptoms in the hands and feet which include both numbness and pain. A comprehensive 10 system review revealed no other significant findings PAST MEDICAL HISTORY: Advanced lung cancer, receiving Tarceva therapy, and is supposed to start radiation therapy for left upper mediastinal mass tomorrow Recurrent episodes of lower respiratory infection that her felt to be a postobstructive pneumonitis largely bronchial Recent stenting of bronchus in the left lung bronchoscopically, following bronchoscopic tumor resection Recurrent atrial fibrillation and flutter, the triggered by febrile episodes FAMILY MEDICAL HISTORY: No cancers or immune abnormalities SOCIAL HISTORY: and lives with his No tobacco use this time MEDICATIONS: The patients list has been reconciled by our clinical pharmacist in the EMR. I have reviewed the list and ordered appropriate medicines. PHYSICAL EXAMINATION: Vital Signs: Initial blood pressure 79/54 with irregular pulse at 159, now with pulse around 110-115 and normal blood pressures Biometrics Head: Rapid atrial flutter Examination: General: alert, oriented, good mentation, looks very tired Nutritional status: Appears mildly under nourished with decrease in mass Skin: warm, dry, good color, no rash HEENT: normal Neck: no mass or jvd Resps: relaxed Lungs: Diminished but otherwise clear breath sounds Heart: Rapid and irregular, no murmur Abdomen: soft, nondistended, nontender, +BS, no mass Upper Extremities: normal Lower Extremities: no edema, warm No Bleeding or bruising Neurologic: normal speech/language, normal 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 He does not have obvious infiltrates no decrease in lung volumes, and no infiltrates that are visible but these could easily be obscured by the other findings 12 LEAD EKG: My reading of the tracing, rapid atrial flutter in the 150s without anything that appears ischemic or any other new changes ASSESSMENT: -acute sepsis -rapid atrial flutter, likely triggered by febrile episode, this is a recurrent paroxysmal illness -suspect recurrent postobstructive bronchopneumonia; this patient is behaving in a fashion similar to a patient with bronchiectasis or cystic fibrosis; there is risk for hospital-acquired resistant infections including Pseudomonas and so will need to cover for that -lung cancer with large mass in the left upper mediastinal region -he is receiving Tarceva for this -he is to start radiation therapies here tomorrow and will try and keep up with that schedule as he enters the hospital PLANS: -inpatient admission for sepsis and he will need treatment with antibiotics, respiratory care, as well as treatment for his rapid atrial fibrillation -if at all possible will begin his radiation therapy treatments tomorrow as initially planned -I reviewed his case with Dr. Micha Hassan who knows him well, and we have agreed that he probably will need to stay on rotating antibiotics similar to what would be done for a bronchiectasis patient; hopefully if he responds well to radiation his respiratory episodes will either stopper become less frequent and less severe -continue anticoagulation for his AFib flutter which will also cover his DVT prophylaxis -nutritional supplementation here I have reviewed the patient's case in detail with Dr. I have reviewed the patient's past medical records as part of this assessment, including
[2017-06-21] MEDS ORDERED: NS 1,000 ML IV SCH (14:45)
--- NOTE | 2017-06-21 15:52 | PDMN ---
Medical Necessity Medical necessity: C/M review: Pt. meets INPT criteria under [facility] M-505 Atrial fibrillation, Pulmonary disease GRG; Acute sepsis, VBG lactic acid 2.3, rapid atrial flutter likely triggered by febrile episode, HR 159-112, suspected recurrent post obstructive pneumonia, requiring IV Diltiazem infusion started in ED, ongoing IV Zosyn Q 6 hrs., IV fluids, cardiac monitoring, respiratory care, comorbid lung cancer with left upper mediastinal region mass treated with Tarceva and radiation therapy to start 06/22/2017, 06/03/2017-06/04/2017 hospitalization for post obstructive pneumonia treated IV Zosyn during admission and post discharge completed course of oral Augmentin, fevers to 102 degrees prior to this admission, hx rapid atrial fibrillation/flutter triggered by febrile episodes. MD anticipates > 2 MN LOS for ongoing med nec for eval and TX of above.
[2017-06-21] MEDS: oxyCODONE IR 5 MG TAB PO PRN ×2 (17:22→20:50)
[2017-06-21] MEDS: PIPERACILLIN/TAZO 3.375 GM/DEX 50 ML IV SCH (17:54)
[2017-06-21] MEDS ORDERED: DILTIAZEM 125 MG in D5W 125 ML IV SCH (18:45)
[2017-06-21] MEDS: DABIGATRAN ETEXILATE MESYL 150 MG CAP PO SCH (20:49)
[2017-06-21] MEDS: LORazepam 0.5 MG TAB PO PRN ×2 (20:49→21:35)
[2017-06-21] MEDS: ERLOTINIB HCL 100 MG PO SCH (20:58)
[2017-06-21] MEDS ORDERED: NON-FORMULARY NEW DRUG (Fenofibrate [Fenofibrate] 160 MG) PO SCH ×2 (21:00)
[2017-06-22] MEDS: PIPERACILLIN/TAZO 3.375 GM/DEX 50 ML IV SCH ×4 (00:07→18:18)
[2017-06-22] MEDS: oxyCODONE IR 5 MG TAB PO PRN ×6 (00:46→20:09)
[2017-06-22 04:39] LABS: % IMMATURE GRANULYOCYTES 1.3 % (0.0-1.1); ABSOLUTE IMMATURE GRANULOCYTES 0.09 10^3/uL (0.00-0.10); ADD DIFF? NO; ADD MORPH? NO; ADD SCAN? NO; ATYPICAL LYMPHOCYTE FLAG 50 (0-99); FRAGMENT RBC FLAG 0 (0-99); HEMATOCRIT 22.5 % (40.0-51.0); LEFT SHIFT FLG 10 (0-99); LIPEMIA HEMOLYSIS FLAG 80 (0-99); MEAN CELL HEMOGLOBIN 26.9 pg (27.9-34.1); MEAN CELL HEMOGLOBIN CONCENTR. 31.1 g/dL (32.4-36.7); MEAN CELL VOLUME 86.5 fL (81.5-99.8); MEAN PLATELET VOLUME 8.2 fL (8.7-11.7); PLATELET CLUMPS FLAG 0 (0-99); PLATELET COUNT 339 10^3/uL (150-400); RED CELL DISTRIBUTION WIDTH 17.2 % (11.5-15.2)
[2017-06-22 04:53] LABS: ANION GAP 10 mEq/L (8-16); CALCIUM 7.9 mg/dL (8.5-10.4); CARBON DIOXIDE 24 mEq/l (22-31); CHLORIDE 100 mEq/L (97-110); CREATININE 0.6 mg/dL (0.7-1.3); GLOMERULAR FILTRATION RATE > 60; GLUCOSE 98 mg/dL (70-100); MAGNESIUM 1.7 mg/dL (1.6-2.3); POTASSIUM 4.1 mEq/L (3.5-5.2); SODIUM 134 mEq/L (134-144)
[2017-06-22] MEDS: CHOLECALCIFEROL VIT D3 1,000 UNITS TAB PO SCH (10:18)
[2017-06-22] MEDS: DABIGATRAN ETEXILATE MESYL 150 MG CAP PO SCH ×2 (10:18→20:09)
[2017-06-22] MEDS: POLYETHYLENE GLYCOL 3350 17 GM PKT PO SCH (10:22)
[2017-06-22 10:53] LABS: HEMATOCRIT 23.5 % (40.0-51.0)
--- NOTE | 2017-06-22 10:57 | ASMTCMCOM ---
CM Note CM Note Notes: 06/22/2017 Case Management Note Reviewed chart, spoke w/RN. No case management d/c needs identified d/t strong family support and frequent contact with medical providers to monitor pt. Pt receives radiation daily M - F. Case Management d/c poc: Home independent when medically stable with follow up as directed. Case Management available if needs change. Date Signed: 06/22/2017 10:56 AM Electronically Signed By:Yudelka Driscoll RN
[2017-06-22 11:33] LABS: % SATURATION 13 % (20-55); TOTAL IRON BINDING CAPACITY 136 ug/dL (260-490)
--- NOTE | 2017-06-22 11:54 | GCON ---
[f rep st] CONSULTATION ONCOLOGY CONSULTATION DATE OF CONSULTATION: 06/22/2017 REASON FOR CONSULTATION: Metastatic non-small cell lung carcinoma. HISTORY OF PRESENT ILLNESS: The patient is a pleasant, 62-year-old gentleman followed by my partner, Dr. Olu Shaw. The patient was diagnosed with a non-small cell lung carcinoma involving both deon gs in January of 2017. He has an EGFR exon 21 mutation. He was started on erlotinib in February of 2017. The patient has a significant endobronchial lesion in the left mainstem bronchus with postobstructive pneumonia. He has had multiple hospitalizations for postobstructive pneumonia. On June 10, he had an endobronchial stent placed at the [facility] (left mainstem bron chus). His symptoms improved somewhat, but more recently he has had recurrent cough and intermittent fevers. He has been on chronic outpatient Augmentin therapy. He recently completed a course. His symptoms unfortunately returned. His brought him to the emergency department last evening due to high fever and tachycardia. He was found to be in atrial fibrillation. He was found to be significantly anemic (hemoglobin 7.0). Hodan olivares was admitted to the hospital for further management. When seen today, he is weak and fatigued. He denies chest pain. He denies hemoptysis. He has been getting gradually anemic. A recent PET-CT scan showed evidence of progression in both lungs; however, it was not to be thought due to a failure of Tarceva given that the patient has been only intermittently on this drug due to r ecurrent infections. The patient has also had intermittent numbness in both hands. This has been going on for almost 2 mo nths. An MRI of the brain and an MRI of the C-spine done in May did not show any evidence of m alignancy as a cause. He was due to have a repeat sedated MRI of the C-spine done later this week. The patient denies any abdominal pain or bloating. He denies any hematemesis. Denies blood in the s tool or black stool. Denies hematuria. He was due to begin palliative radiation to the left hemithorax today. PAST MEDICAL HISTORY: 1. Metastatic lung carcinoma as outlined above. 2. History of recurrent postobstructive pneumonia secondary to #1. 3. History of recurrent atrial fibrillation. SOCIAL HISTORY: The patient lives locally. He is . He is a former smoker but quit greater t lovelace 20 years ago. REVIEW OF SYSTEMS: As outlined above. Remainder of 10-point review of systems otherwise negative. PHYSICAL EXAM: GENERAL: The patient appears weak and fatigued. He is in no acute distress. HEENT: There is no scleral icterus. Conjunctival pallor is present. HEART: Tachycardic without murmur. It is irregular. LUNGS: Clear anteriorly. No wheeze or rhonchi. ABDOMEN: Soft, nontender. EXTR EMITIES: No extremity swelling or edema. No skin rash. NEUROLOGIC: The patient is alert, oriented , and appropriate and answers questions appropriately. LABORATORY DATA: White count 7.1, hemoglobin 7.0, hematocrit 22.5, MCV 86.5, platelet count 339,000, absolute neutrophil count is 5170. Sodium 134, potassium 4.1, chloride 100, bicarb 24, BUN 8, creat inine 0.6, bilirubin 0.7, AST 57, ALT 98, alkaline phosphatase 174. TSH 1.87. PET-CT scan performed at [facility] on June 16 revealed significant interval pro gression in the mediastinum, left hilum and left upper lobe with no osseous metastatic disease identi fied. MRI of the C-spine done 05/15/2017 shows no evidence of metastatic disease. There is multilevel dege nerative disk disease and moderate central canal narrowing C6 through C7. No acute disk herniation n oted. MRI of the brain, done the same day, reveals a left dural nodule that is unchanged since February of this year, likely representing a meningioma. No intracranial lesions identified. IMPRESSION: 1. Metastatic non-small cell lung carcinoma with positive EGFR Exon 21 mutation. 2. Endobronchial left mainstem bronchus lesion status post endobronchial stent placement June 10. 3. Recurrent postobstructive pneumonia secondary to #1. 4. Anemia. 5. Bilateral hand numbness of unclear etiology. The patient is a pleasant 62-year-old gentleman with metastatic non-small cell lung carcinoma, whose history as outlined above. He has been on intermittent Tarceva therapy. Recent PET-CT scan showed e vidence of disease progression in the chest. He does not have disease outside of the chest. It is n ot felt that this necessarily represents a failure of his current therapy (Tarceva). The patient has been only intermittently on therapy due to recurrent episodes of postobstructive pneumonia. The dec on has been made to continue Tarceva for now. He was due to have palliative radiation to his prim monserrat left lung mass in an attempt to better palliate his postobstructive symptoms. He has significant anemia of unclear etiology. This is generally not associated to Tarceva. Tarceva has been associated with hemolytic anemia in less than 5% of cases. However, he has normal bilirubi n, would suggest this is not the issue. Haptoglobin has been sent and is pending as have iron studie s. Case was discussed with Dr. Davenport of the hospitalist service. I agree with a 2 unit packed red cell transfusion. This was discussed with the patient who consents to having a transfusion today. We will delay his radiation today. I have informed Radiation Oncology of this. I would favor beginn ing radiation tomorrow if he is clinically stable. If a cause of his anemia could not be found, certainly endoscopic evaluation for source of GI bleedin g could be pursued. I think it would make sense to send a urinalysis and Hemoccult his stools. The above plan was reviewed with Dr. Davenport as well as the patient and his . Their questions wer e answered. Total time for today's visit was approximately 50 minutes of which greater than 50% was spent in coun seling and care coordination. I will notify Dr. Shaw of the patient's admission. /[id number]/MODL
[2017-06-22] MEDS ORDERED: AMIODARONE HCL 100 ML IV ONE (12:53)
[2017-06-22] MEDS ORDERED: NS 1,000 ML IV ONE (13:01)
--- NOTE | 2017-06-22 13:01 | HOSPPROG ---
Hospitalist Progress Note Assessment/Plan: DIAGNOSES: -acute sepsis -rapid atrial flutter, likely triggered by febrile episode, this is a recurrent paroxysmal illness -suspect recurrent postobstructive bronchopneumonia; this patient is behaving in a fashion similar to a patient with bronchiectasis or cystic fibrosis; there is risk for hospital-acquired resistant infections including Pseudomonas and so will need to cover for that -lung cancer with large mass in the left upper mediastinal region -he is receiving Tarceva for this -he is to start radiation therapies here tomorrow and will try and keep up with that schedule as he enters the hospital I have reviewed in detail today with Dr Alegria and Dr Paez PLANS: -transfuse RBCs today (ordered); reassess orthostasis after that -begin w/u for cause of anemia with iron studies, hemoccult, inflammation markers, UA, and other blood studies; other assessments as indicated -delay start of radiation until is more stable, hopefully tomorrow -continue rate control w diltiazem -Dr Alegria to see; ? amiodarone, ? cardioversion -continue current abx -plan on ongoing outpt antibiotics after treatment of this acute infection, in same fashion as would for bronchiectasis -continue dabigatran SUBJ: feels better overall, but very orthostatic no fever sxs but some cough ongoing not sob OBJ: vitals: no fever here; HR overall better controlled when in bed but up to 170s with standing, resps stable card monitor: remains in AFib/flutter, rate in 90s supine but quite tachycardic w standing exam: looks very tired decreased muscle mass skin warm dry resp relaxed lungs diminished but clear heart irreg abd nl no edema labs: Hg now down to 7 I reviewed labs over past year, has been anemic now for a few months but is currently below baseline Cxs remain neg so far Objective: Vital Signs Temp Pulse Resp BP Pulse Ox 37.1 C 168 H 24 H 113/74 96 06/22/17 07:21 06/22/17 07:21 06/22/17 07:21 06/22/17 07:21 06/22/17 07:21 Laboratory Results 06/22/17 10:36 06/22/17 03:50 06/21/17 06/22/17 06/23/17 06:59 06:59 06:59 Intake Total 2780 120 Output Total 950 700 Balance 1830 -580 PT 16.4 SEC (12.0-15.0) H 06/21/17 11:45 INR 1.32 (0.83-1.16) H 06/21/17 11:45 ICD10 Worksheet Patient Problems: Problems Problem Status Onset Atrial fibrillation with RVR Acute Sepsis Acute Anemia Acute Dehydration Acute Generalized weakness Acute Lung cancer Acute Pneumonia Acute Vomiting Acute
--- NOTE | 2017-06-22 13:31 | PDHPUP ---
History & Physical Update H&P update statement: This history and physical update is based on an assessment of the patient which was completed after admission or registration (within 24 hours), but prior to the surgery/procedure. H&P update: H&P reviewed & patient examined, no change in patient's condition since H&P completed
[2017-06-22] MEDS ORDERED: PROPOFOL 200 MG/20 ML VIAL ONE ×2 (14:25→14:26)
[2017-06-22] MEDS ORDERED: fentaNYL 100 MCG/2 ML INJ ONE (14:26)
[2017-06-22] MEDS ORDERED: LIDOCAINE 2% 5 ML SDV ONE (14:29)
[2017-06-22] MEDS ORDERED: ATROPINE SULFATE 1 MG/10 ML SYR ONE (14:32)
[2017-06-22 14:56] LABS: COLOR YELLOW; LEUKOCYTE ESTERASE,URINE NEGATIVE (NEGATIVE); NITRITE,URINE NEGATIVE (NEGATIVE)
[2017-06-22 15:01] LABS: MUCUS TRACE /lpf (NONE-1+)
--- NOTE | 2017-06-22 15:03 | PDTEE1 ---
STEVE Cardioversion Procedure Procedure: electrical cardioversion, transesophageal echo Indications: other (atrial flutter) Consent: signed and in chart Anticoagulation: other (Pradaxa) Procedural Details: Pads were placed in anterior-posterior position. STEVE probe was advanced and standard images obtained. There is no evidence of left atrial or left atrial appendage thrombus. Synchronized cardioversion attempt #1: 200J Results: normal sinus rhythm Conclusions: successful STEVE cardioversion Patient Problems: Problems Problem Status Onset Atrial fibrillation with RVR Acute Sepsis Acute Anemia Acute Dehydration Acute Generalized weakness Acute Lung cancer Acute Pneumonia Acute Vomiting Acute
--- NOTE | 2017-06-22 15:09 | CPEKG ---
Heart Rate: 88 RR Interval: 682 P-R Interval: 136 QRSD Interval: 74 QT Interval: 360 QTC Interval: 436 P Berkey: 40 QRS Berkey: 33 T Wave Berkey: 36 EKG Severity - NORMAL ECG - EKG Impression: SINUS RHYTHM EKG Impression: Right ventricular conduction defect EKG Impression: Resolution of supraventricular tachycardia since June 21, 2017 Electronically Signed By: Olu Champagne 22-Jun-2017 16:52:14
[2017-06-22] MEDS: LORazepam 0.5 MG TAB PO PRN ×3 (17:13→21:00)
[2017-06-22] MEDS: AMIODARONE HCL 200 MG TAB PO SCH (17:13)
--- NOTE | 2017-06-22 17:26 | GCON ---
[f rep st] CONSULTATION CARDIOLOGY CONSULTATION REFERRING PHYSICIAN: Josué Davenport MD REASON FOR CONSULTATION: Recurrent paroxysmal atrial flutter. HISTORY: The patient is a 62-year-old male who was diagnosed with non-small cell lung cancer involvi ng the left hilum earlier this year. He has been receiving immunotherapy and is scheduled to begin ra diation treatments in the near future. He presented to the hospital yesterday with complaints of wors ening shortness of breath, fever, and rapid palpitations with his pulse oximeter indicating heart rat e in the 150s. In the emergency room, he was found to be in atrial flutter with 2:1 AV conduction, pr oducing a heart rate in the 160s. Initially, he was somewhat hypotensive, but with control of his hea rt rate, he stabilized. The patient had at least 1 other episode of atrial flutter resulting in a car dioversion performed during a hospital stay at the [facility]. He has no other p rior cardiac history and no other major medical issues. PAST MEDICAL HISTORY: Notable predominantly for his diagnosis of lung cancer and atrial flutter. MEDICATIONS: Please refer to the electronic record for a complete list of his medications. He has be en taking diltiazem 120 mg daily. He has been on Pradaxa 150 mg twice daily for the past 3-4 weeks. ALLERGIES: No known drug allergies. FAMILY HISTORY: Noncontributory. SOCIAL HISTORY: He is . He is a former smoker, having stopped almost 30 years ago. 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 REVIEW OF SYSTEMS: Apart from the issues mentioned in the history of present illness, a 10-point rev iew was negative. PHYSICAL EXAMINATION: VITAL SIGNS: Heart rate in the 80s with atrial flutter with 4:1 AV conduction demonstrated on telemetry. Blood pressure 113/74. GENERAL: This is a somewhat chronically ill-appeari ng male in no acute distress. He is alert and oriented x3. HEAD AND NECK: No scleral icterus. Mucous membranes moist. Carotid pulses 2+ without bruits. CHEST: Lung farris clear bilaterally. CARDIAC: Reg ular rate and rhythm with no murmur or gallop. ABDOMEN: Soft, nontender, nondistended, without masses . Normal bowel sounds. EXTREMITIES: 2+ pulses and no peripheral edema. LABORATORY STUDIES: Sodium 134, potassium 4.1, BUN and creatinine 8 and 0.6. CBC demonstrates a whit e blood cell count of 7.19 with hemoglobin and hematocrit of 7.0 and 22.5. Platelet count is 339,000. ECG: His ECG from the emergency room demonstrates atrial flutter with 2:1 AV conduction producing a v entricular rate of 158 beats per minute. There are no Q-waves or conduction system disturbances. Nons pecific ST-T wave abnormalities secondary to his atrial flutter waves. IMPRESSION: This is a 62-year-old male with left hilar non-small cell lung cancer, who presents with recurrent atrial flutter. After his initial episode of atrial flutter, he was placed on diltiazem an d systemic anticoagulation with Pradaxa. He does not demonstrate any signs or symptoms of ischemia or congestive heart failure. His course has been complicated by episodes of postobstructive pneumonia. He is currently receiving antibiotics for that. PLAN: The patient will be given an intravenous loading dose of amiodarone. I feel that it is prefera ble to strive for rhythm control in order to minimize complications or interruptions in his ongoing c ancer management. Whether or not to continue amiodarone long-term can be reassessed at a later date. Following his intravenous amiodarone loading dose, we will plan for STEVE-guided cardioversion later to day. /[id number]/MODL
[2017-06-22] MEDS ORDERED: guaiFENesin/CODEINE PHOS 10 ML UDCUP PO PRN (17:53)
[2017-06-22] MEDS ORDERED: BENZONATATE 100 MG CAP PO PRN (17:53)
[2017-06-22] MEDS: PIPERACILLIN/TAZO 4.5 GM/DEX 100 ML IV SCH (18:23)
[2017-06-22 19:10] LABS: HEMATOCRIT 26.7 % (40.0-51.0); HEMOGLOBIN 8.4 g/dL (13.7-17.5); MEAN CELL HEMOGLOBIN 26.4 pg (27.9-34.1); MEAN CELL HEMOGLOBIN CONCENTR. 31.5 g/dL (32.4-36.7); RED BLOOD CELL COUNT 3.18 10^6/uL (4.40-6.38)
[2017-06-22] MEDS: ERLOTINIB HCL 100 MG PO SCH (20:10)
[2017-06-22] MEDS ORDERED: MELATONIN 3 MG TAB PO SCH (21:00)
[2017-06-22] MEDS ORDERED: FENOFIBRATE 145 MG TAB PO SCH (21:00)
[2017-06-23] MEDS: oxyCODONE IR 5 MG TAB PO PRN ×5 (00:20→18:34)
[2017-06-23] MEDS: PIPERACILLIN/TAZO 4.5 GM/DEX 100 ML IV SCH ×4 (03:43→18:34)
[2017-06-23] MEDS: DABIGATRAN ETEXILATE MESYL 150 MG CAP PO SCH (08:54)
[2017-06-23] MEDS: CHOLECALCIFEROL VIT D3 1,000 UNITS TAB PO SCH (08:54)
[2017-06-23] MEDS: AMIODARONE HCL 200 MG TAB PO SCH (08:54)
[2017-06-23] MEDS: POLYETHYLENE GLYCOL 3350 17 GM PKT PO SCH (08:59)
[2017-06-23 09:16] LABS: % IMMATURE GRANULYOCYTES 0.7 % (0.0-1.1); ABSOLUTE IMMATURE GRANULOCYTES 0.05 10^3/uL (0.00-0.10); ADD DIFF? NO; ADD MORPH? NO; ADD SCAN? NO; ATYPICAL LYMPHOCYTE FLAG 30 (0-99); FRAGMENT RBC FLAG 0 (0-99); HEMOGLOBIN 9.2 g/dL (13.7-17.5); LEFT SHIFT FLG 0 (0-99); LIPEMIA HEMOLYSIS FLAG 80 (0-99); MEAN CELL HEMOGLOBIN 27.2 pg (27.9-34.1); MEAN CELL HEMOGLOBIN CONCENTR. 32.9 g/dL (32.4-36.7); MEAN CELL VOLUME 82.8 fL (81.5-99.8); MEAN PLATELET VOLUME 8.3 fL (8.7-11.7); PLATELET CLUMPS FLAG 0 (0-99); PLATELET COUNT 344 10^3/uL (150-400); RED BLOOD CELL COUNT 3.38 10^6/uL (4.40-6.38); RED CELL DISTRIBUTION WIDTH 18.5 % (11.5-15.2)
--- NOTE | 2017-06-23 12:54 | ECHO ---
[email or web address] [address] Main: [phone] Fax: Transesophageal Echocardiography Name: DANILO LAINEZ MR#: [id number] Study Date: 06/22/2017 Study Time: 02:33 PM Date of : 1955 Age: 62 year(s) Height: ( ) Weight: ( ) BSA: Gender: Male Examination: STEVE Indication: New onset Atrial Flutter Image Quality: Contrast: Requested by: Idris Alegria Heart Rate: Rhythm: BP: / Procedure Staff Coal Sample Tester: Phi Acharya Reading Physician: Idris Alegria Requesting Provider: STEVE Exam Details Conclusions: Normal global systolic LV function. An agitated saline study was performed and was negative for intracardiac shunting. No obvious thrombus is noted in the left atrial appendage. Trivial mitral valve regurgitation. The aortic valve is normal in appearance and function. The tricuspid valve is normal in appearance and function. Measurements: Chambers Valvular Assessment AV/MV Valvular Assessment TV/PV Normal Normal Normal Name Value Range Name Value Range Name Value Range Additional Measurements: Findings: Left Ventricle: Normal global systolic LV function. Right Ventricle: Normal RV function. Left Atrium: An agitated saline study was performed and was negative for intracardiac shunting. Left Atrial Appendage: Good color flow doppler in the left atrial appendage. No obvious thrombus is noted in the left atrial Patient: DANILO LAINEZ Study Date: 06/22/2017 Page 1 of 2 02:33 PM appendage. Mitral Valve: The mitral valve is normal in appearance and function. Trivial mitral valve regurgitation. Aortic Valve: The aortic valve is tri-leaflet. The aortic valve is normal in appearance and function. Tricuspid Valve: The tricuspid valve is normal in appearance and function. Pulmonic Valve: The pulmonic valve is normal in appearance and function. Aorta: The aorta is normal. Pericardium: No pericardial effusion. l1n (No Signature Object) Patient: DANILO LAINEZ Study Date: 06/22/2017 Page 2 of 2 02:33 PM [id number]
--- NOTE | 2017-06-23 13:39 | PDCARPN ---
Cardiology Progress Note Assessment/Plan: Paroxysmal Atrial Flutter- maintaining sinus rhythm after cardioversion yesterday. Continues on PO amiodarone. Also on Pradaxa for CVA prophylaxis. OK for discharge from cardiac standpoint. Has f/u appt with me on 07/16 at 9:30 in our [place] office. (details entered in the discharge plan on SeeControl). 06/23/17 13:22 Subjective: No chest pain, dyspnea, or palpitations. Objective: Vital Signs (8 Hrs) Temp Pulse Pulse Pulse Pulse Resp BP 06/23/17 11:42 36.7 C 92 22 H 114/73 06/23/17 10:54 36.7 C 92 22 H 114/73 06/23/17 10:51 92 101 H 90 06/23/17 08:00 36.8 C 91 14 107/67 BP BP BP Pulse Ox 06/23/17 11:42 92 06/23/17 10:54 92 06/23/17 10:51 114/73 98/74 L 112/74 06/23/17 08:00 94 Intake/Output (24 Hrs) 06/22/17 06/23/17 06/24/17 05:59 05:59 05:59 Intake Total 2780 2545 Output Total 950 1825 325 Balance 1830 720 -325 Intake: Oral (ml) 340 970 IV Intake (ml) 50 IV Infused (ml) 2440 850 Amiodarone HCl 100 ml @ 100 600 mls/hr IV ONCE ONE Rx #:[id number] Diltiazem 125 mg In D5w 35 125 ml @ As Directed IV EDNOW ONE Rx#:[id number] Ns 1,000 ml @ 75 mls/hr 350 700 IV CONT AGUSTIN Rx#: [id number] Piperacillin/Tazo 3.375 55 50 gm/Dex 50 ml @ 100 mls/hr IV Q6HRS AGUSTIN Rx#: [id number] Packed Red Blood Cells ( 675 ml) Output: Urine (ml) 950 1825 325 Toilet 325 Urinal 950 1825 Other: Weight 70.307 kg 68.1 kg Intake Quantity Yes Yes Sufficient Number of Voids Toilet 2 Urinal 1 Result Diagrams: 06/23/17 08:42 06/22/17 03:50 - Physical Exam Constitutional: other (chronically ill appearing) Eyes: anicteric sclera Ears, Nose, Mouth, Throat: moist mucous membranes Cardiovascular: regular rate and rhythm, no murmurs, no rubs, no gallops Gastrointestinal: normoactive bowel sounds, no tenderness, no masses Skin: no rashes, no edema Neurologic: AAOx3 Psychiatric: not anxious ICD10 Worksheet Patient Problems: Problems Problem Status Onset Atrial fibrillation with RVR Acute Sepsis Acute Anemia Acute Dehydration Acute Generalized weakness Acute Lung cancer Acute Pneumonia Acute Vomiting Acute
--- NOTE | 2017-06-23 15:03 | SOAPPROG ---
SOAP Progress Note Assessment/Plan: Assessment: 1)Metastatic NSC lung cancer 2)Post obstructive PNA 3)A-fib s/p cardioversion 4)Idiopathic bilateral hand numbness 5)Anemia Plan: Patient feels better after 2 units PRBC's and cardioversion. He wants to go home today. Further workup of his anemia can be done as an outpatient. He received his first dose of palliative chest XRT today. He is scheduled to get a C-Spine MRI later today to evaluate his bilateral hand numbness. This study was previously done in May, and did not reveal a clear cause. It is possible that he has developed a paraneoplastic related to his lung cancer. He will follow up with Dr. Shaw after d/c to review MRI result, and discuss further systemic treatment options. His questions were answered. Plan d/w Dr. Davenport and nursing. 06/23/17 14:58 Subjective: Feels better. He would like to go home today. Objective: Vital Signs Temp Pulse Resp BP Pulse Ox 36.7 C 92 22 H 114/73 92 06/23/17 11:42 06/23/17 11:42 06/23/17 11:42 06/23/17 11:42 06/23/17 11:42 Laboratory Results 06/23/17 08:42 06/22/17 03:50 06/22/17 06/23/17 06/24/17 05:59 05:59 05:59 Intake Total 2780 2545 Output Total 950 1825 325 Balance 1830 720 -325 PT 16.4 SEC (12.0-15.0) H 06/21/17 11:45 INR 1.32 (0.83-1.16) H 06/21/17 11:45 - Time Spent With Patient Time Spent With Patient: 25 minutes Physical Exam - Physical Exam General Appearance: alert, no apparent distress EENT: PERRL/EOMI Respiratory: other (Mild rhonci Right lung field. Otherwise clear) Cardiac/Chest: regular rate, rhythm Abdomen: non-tender, soft Neuro/Psych: alert, normal mood/affect ICD10 Worksheet Patient Problems: Problems Problem Status Onset Atrial fibrillation with RVR Acute Sepsis Acute Anemia Acute Dehydration Acute Generalized weakness Acute Lung cancer Acute Pneumonia Acute Vomiting Acute
[2017-06-23 15:28] VITALS: BP 111/73; RESP 18
[2017-06-23] MEDS: LORazepam 0.5 MG TAB PO PRN (16:05)
[2017-06-23] MEDS ORDERED: fentaNYL 100 MCG/2 ML INJ ONE ×2 (17:02→17:47)
[2017-06-23] MEDS ORDERED: MIDAZOLAM 2 MG/2 ML VIAL ONE ×2 (17:02→17:47)
[2017-06-23] MEDS ORDERED: GADOBUTROL 10 ML VIAL IVP ONE (17:21)
[2017-06-23] MEDS ORDERED: FLUMAZENIL 0.5 MG/5 ML MDV IVP ONE (17:46)
[2017-06-23] MEDS ORDERED: NALOXONE HCL 0.4 MG/ML INJ ONE (17:47)
[2017-06-23 18:40] VITALS: PULSE 101; TEMP 98.2; O2SAT 92
--- NOTE | 2017-06-23 19:00 | PDDCSUM ---
Discharge Summary Discharge Summary: DISCHARGE DIAGNOSES: -acute severe sepsis with hypotension -rapid atrial flutter, likely triggered by febrile episode, this is a recurrent paroxysmal atrial fibrillation -suspect recurrent postobstructive bronchopneumonia -lung cancer with large mass in the left upper mediastinal region -ongoing bilateral hand numbness and weakness of uncertain etiology CONSULTANTS: Dr. Olu Paez PROCEDURES: MRI of cervical spine with and without contrast HOSPITAL COURSE SUMMARY: The patient came into the hospital with cough fever tachycardia and hypotension feeling very weak. This episode is very much like his last few hospital admissions where he presented with evidence of pneumonia and with rapid atrial fibrillation. Each of these episodes including this 1 had onset of symptoms with some approximately 2 days of finishing antibiotics from the prior episode. The pneumonia is felt to trigger rapid atrial fibrillation in this case. At the time of presentation here he had pulse in the 170s and blood pressure of 75 systolic. He was hypoxemic and having fevers. Chest x-ray shows a large left mediastinal mass and some left pleural fluid. He was admitted the hospital and treated with vigorous fluid resuscitation and antibiotic therapy. Patient good resolution of fevers, sepsis, hypotension but remained in rapid atrial fibrillation. Diltiazem was added in did improve rate control. However as he keeps coming in with severe tachycardia is felt that he would be better served by being held in sinus rhythm. Amiodarone was started and he was electrically cardioverted successfully and he remains in sinus rhythm at this time. From the standpoint of atrial fibrillation and infection he is now stable and ready for discharge to home. In addition it is notable that the patient has been fairly anemic recently and is here with a hemoglobin of 7. This is normocytic and with evaluations done here is felt to most likely represent anemia of chronic disease and anemia of cancer. He was not felt to be iron deficient. He was given 2 units of red blood cells which improved his symptoms and this was also part of his fluid resuscitation in terms of treating his sepsis. This will need to be followed he may need future transfusion but it is hoped that with treatment of his tumor in his infections he can improve his anemia. In addition the patient has ongoing bilateral hand numbness and weakness. This has been of uncertain etiology. The patient was to have MRI in the near future to assess this but as he has significant problems with MR in needs conscious sedation we did this study here. The study has been done and the reading is still pending at the time of this dictation As he has what appears to be recurrent episode of postobstructive bronchopneumonia with a lung tumor in place, it is recommended this time that he be kept on rotating antibiotics in a fashion similar to what we would treat bronchiectasis. I reviewed this with Dr. Paniagua. PENDING TEST RESULTS: MRI scan of the cervical spine MEDICATION CHANGES: Addition of amiodarone and Levaquin FOLLOW-UP PLAN: With Dr. Shaw this week or next week With Dr. Paniagua later this week Greater than 35 minutes bedside and care coordination time today
--- NOTE | 2017-06-24 11:46 | ASDISCHSUM ---
Discharge Information Plan Status:Home with No Needs Medically Cleared to Leave:06/23/2017 Discharge Date:06/23/2017 07:28 PM CM D/C Disposition:Home, Routine, Self-Care ADT D/C Disposition:Home, Routine, Self-Care Projected Discharge Date:06/23/2017 07:28 PM Transportation at D/C:Family Discharge Delay Reason: Follow-Up Date:06/23/2017 07:28 PM Discharge Slot: Final Diagnosis: Placement Information Patient Contact Information Contact Name:CHANCE Relationship: Address:[address] [place], [place] [address] City:[place] Alternate Phone: State/Zip Code:[place] [address] Email: Financial Information Financial Class:HMO and PPO Plans Primary Plan Desc:KEV NAYLOR Primary Plan Number:[id number] Secondary Plan Desc: Secondary Plan Number: Assessment Information [facility] CM Progress Note CM Note CM Note Notes: 06/22/2017 Case Management Note Reviewed chart, spoke w/RN. No case management d/c needs identified d/t strong family support and frequent contact with medical providers to monitor pt. Pt receives radiation daily M - F. Case Management d/c poc: Home independent when medically stable with follow up as directed. Case Management available if needs change. Date Signed: 06/22/2017 10:56 AM Electronically Signed By:Yudelka Driscoll RN Intervention Information Intervention Type:Transportation Date of Service:06/23/2017 10:37 AM Patient Type:Inpatient Staff Member:REZA Driscoll Hillary Hours:0.5 Discipline: Severity:1 (0-1 Hours) Comment:Arranged transportation to [facility] for radiation treatment with return to [facility] when complete. 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
== END 2017-06-23 19:28 | disposition home or self-care (01) | DRG 871 ==
LOC: F2W 15:20
PROVIDERS: ADMIT Internal Medicine; ATTEND Internal Medicine
PROC: B245ZZ4 Ultrasonography of Left Heart, Transesophageal (ICD-10-PCS; principal; 2017-06-22)
PROC: 5A2204Z Restoration of Cardiac Rhythm, Single (ICD-10-PCS; principal; 2017-06-22)
PROC: 30233N1 Transfusion of Nonautologous Red Blood Cells into Peripheral Vein, Percutaneous Approach (ICD-10-PCS; 2017-06-22)
DX: A41.9 Sepsis, unspecified organism (principal); J18.0 Bronchopneumonia, unspecified organism; C34.90 Malignant neoplasm of unspecified part of unspecified bronchus or lung; R65.20 Severe sepsis without septic shock; I48.0 Paroxysmal atrial fibrillation; Z87.891 Personal history of nicotine dependence; E78.5 Hyperlipidemia, unspecified; D64.9 Anemia, unspecified; R20.0 Anesthesia of skin
CPT/HCPCS: 83010-90; 96365; 96366; 97161-GP; 97166-GO; A9585; J0282; J0461; J2060; J2250; J2310; J2543; J2704; J3010; P9016

== ENCOUNTER → 2017-06-26 | Outpatient (CLI) | payer OTHER ==
[~2017-06-26] MED LIST changes: -ACETAMINOPHEN 325 MG TAB ONE; -MIDAZOLAM 2 MG/2 ML VIAL ONE; -fentaNYL 100 MCG/2 ML INJ ONE
== END ==
LOC: FIMAGING 12:10 → EDSTATUS 12:14
PROVIDERS: ATTEND Internal Medicine Hematology & Oncology
DX: R05 Cough (principal)
CPT/HCPCS: A9585

== ENCOUNTER 2017-10-05 14:00 | Outpatient (CLI) | payer OTHER ==
[2017-10-05] MEDS ORDERED: NALOXONE HCL 0.4 MG/ML INJ IVP PRN (14:26)
[2017-10-05] MEDS ORDERED: FLUMAZENIL 0.5 MG/5 ML MDV IVP PRN (14:26)
[2017-10-05] MEDS ORDERED: NS 1,000 ML IV SCH (14:30)
[2017-10-05 15:29] VITALS: TEMP 99.3
[2017-10-05] MEDS: fentaNYL 100 MCG/2 ML INJ IVP PRN ×2 (15:35→16:37)
[2017-10-05] MEDS: MIDAZOLAM 2 MG/2 ML VIAL IVP PRN ×2 (15:36→16:38)
--- NOTE | 2017-10-05 15:36 | PDPROPOC ---
Sedation Plan of Care Sedation Plan of Care: vital signs stable, mental status noted, patient educated of risks, benefits, alternatives, patient can tolerate sedation ASA Classification: ASA 2 Planned drugs: fentanyl, midazolam Mallampati Score: Class 1 Mallampati Reference Image: Patient passed 3-3-2 rule?: Yes
--- NOTE | 2017-10-05 15:39 | PDGENHP ---
History & Physical Chief Complaint: lung ca restaging History of Present Illness: ELKE lung ca, restaging prior to new rx Relevant Physical Exam: mild ronchi left, RRR Cardiorespiratory Assessment: mild ronchi left, RRR
[2017-10-05] MEDS ORDERED: GADOBUTROL 10 ML VIAL IVP ONE (16:08)
[2017-10-05 16:59] VITALS: BP 107/66; PULSE 76; RESP 17; O2SAT 100
== END 2017-10-05 18:25 | disposition home or self-care (01) ==
LOC: FIMAGING 14:00
PROVIDERS: ATTEND Internal Medicine Hematology & Oncology
DX: R91.8 Other nonspecific abnormal finding of lung field (principal); R90.82 White matter disease, unspecified; C34.90 Malignant neoplasm of unspecified part of unspecified bronchus or lung
CPT/HCPCS: A9585; J2250; J2310; J3010

== ENCOUNTER → 2017-10-26 | Outpatient (CLI) | payer OTHER ==
[~2017-10-26] MED LIST changes: -GADOBUTROL 10 ML VIAL IVP ONE; +LIDOCAINE 1% 300 MG/30 ML SDV ONE
[2017-10-26 09:46] LABS: INR 1.09 (0.83-1.16); PROTIME(PATIENT) 14.3 SEC (12.0-15.0)
== END ==
LOC: FIMAGING 08:43
PROC: 009U3ZX Drainage of Spinal Canal, Percutaneous Approach, Diagnostic (ICD-10-PCS; principal; 2017-10-26)
DX: G61.82 Multifocal motor neuropathy (principal)

== ENCOUNTER → 2017-10-29 | Day surgery (SDC) | payer OTHER ==
[~2017-10-29] MED LIST changes: +IOPAMIDOL (ISOVUE-M 300) 15 ML VIAL ONE
== END | disposition home or self-care (01) ==
LOC: FIMAGING 13:24
PROVIDERS: ATTEND Radiology Diagnostic Radiology
PROC: 3E0S3GC Introduction of Other Therapeutic Substance into Epidural Space, Percutaneous Approach (ICD-10-PCS; principal; 2017-10-29)
PROC: B01B1ZZ Fluoroscopy of Spinal Cord using Low Osmolar Contrast (ICD-10-PCS; principal; 2017-10-29)
DX: G97.1 Other reaction to spinal and lumbar puncture (principal)
CPT/HCPCS: J2270; Q9967

== ENCOUNTER 2017-11-13 17:30 | Inpatient (IN) | payer OTHER ==
--- NOTE | 2017-11-13 18:07 | EDPHY ---
H & P Stated Complaint: Started fever after IVIG infusion,also had CP when he laid back Time Seen by Provider: 11/13/17 17:35 HPI/ROS: HPI CHIEF COMPLAINT: Chest pain, rigors, chills after getting IVIG today. HISTORY OF PRESENT ILLNESS: This patient is 62-year-old male, he has advanced stage IV lung cancer, is currently getting Tarceva therapy, also has peripheral neuropathy and is getting IVIG therapy. He is receiving IV IG therapy at the infusion Center today. Here was there apparently for 2 and 0.5 hr getting this. Once the infusion was over he stood up got very lightheaded started complaining of chills and rigors and felt like he was going to pass out. They sat him in the chair and had leg him back. They decided to give him Benadryl however they could not get an IV so he did not receive the Benadryl he felt better after p. O. Fluids. He went home when he got home he started complaining of fever. His reported that she took her temperature was 101.8 degrees T-max. He did not receive anything and then brought him to the emergency room where he has normal vitals and is afebrile. Since arriving in emergency room he feels well. He additionally reports that when he lays flat he developed some discomfort in his chest. Sharp stabbing. Past Medical History: Advance lung CA, postobstructive pneumonia, peripheral neuropathy, IVIG therapy pain Past Surgical History: Denies recent surgery. Social History: Denies drugs alcohol tobacco products. Family History: Noncontributory ROS REVIEW OF SYSTEMS: A comprehensive 10 point review of systems is otherwise negative aside from elements mentioned in the history of present illness. Exam Constitutional frail, thin appearing, triage nursing summary reviewed, vital signs reviewed, awake/alert. Vital signs noted at triage. Eyes normal conjunctivae and sclera, EOMI, PERRLA. HENT normal inspection, atraumatic, moist mucus membranes, no epistaxis, neck supple/ no meningismus, no raccoon eyes. Respiratory clear to auscultation bilaterally, normal breath sounds, no respiratory distress, no wheezing. Cardiovascular chest wall nontender to palpation, rate normal, regular rhythm , no murmur, no edema, distal pulses normal. Gastrointestinal soft, non-tender, no rebound, no guarding, normal bowel sounds, no distension, no pulsatile mass. Genitourinary no CVA tenderness. Musculoskeletal no midline vertebral tenderness, full range of motion, no calf swelling, no tenderness of extremities, no meningismus, good pulses, neurovascularly intact. Skin pink, warm, & dry, no rash, skin atraumatic. Neurologic awake, alert and oriented x 3, AAOx3, moves all 4 extremities equally, motor intact, sensory intact, CN II-XII intact, normal cerebellar, normal vision, normal speech. Psychiatric normal mood/affect. Heme/Lymph/Immune no lymphadenopathy. Differential Diagnosis: Includes but is not limited to in a particular order acute febrile illness, infection, sepsis, bacteremia, dehydration, electrolyte disturbance, reaction to IVIG Medical Decision Making: Plan for this patient IV establishment with blood draw , check basic blood work, x-ray, EKG, lactic acid and re-evaluate. Gentle IV hydration. Re-evaluation: 1850: Patient's x-ray reviewed. This shows an apical pneumothorax. Called to me by Dr. Koch. EKG interpretation by me on record in [facility] [employer] [facility] system. Impression time of EK, sinus rhythm rate of 94. No acute ischemic changes. No ST elevation no ST depression or T-wave abnormalities unremarkable EKG. 2040: Patient be admitted to the hospitalist service for pneumonia, fever, left upper lobe pneumonia. Additionally he has a left small pneumothorax. He does not need a chest tube at this time is hemodynamically stable no acute distress. Plan for admission to the hospitalist service. Broad-spectrum antibiotics will be given IV vancomycin IV Zosyn. Source: Patient - Personal History Current Tetanus Diphtheria and Acellular Pertussis (TDAP): Yes Tetanus Vaccine Date: < 10 years - Medical/Surgical History Hx Asthma: No Hx Chronic Respiratory Disease: No Hx Diabetes: No Hx Cardiac Disease: Yes Hx Renal Disease: No Hx Cirrhosis: No Hx Alcoholism: No Hx HIV/AIDS: No Hx Splenectomy or Spleen Trauma: No Other PMH: PMHx: Hyperlipidemia, lung CA chemo oral Tarceva. PSHx: bronchoscopy , cardioversion aflutter - Social History Smoking Status: Former smoker Constitutional: Initial Vital Signs Temperature (C) 37.1 C 11/13/17 17:32 Heart Rate 98 11/13/17 17:32 Respiratory Rate 18 11/13/17 17:32 Blood Pressure 102/63 11/13/17 17:32 O2 Sat (%) 94 11/13/17 17:32 O2 Delivery Mode Nasal Cannula O2 (L/minute) 2 Allergies/Adverse Reactions: No Known Allergies Allergy (Verified 11/13/17 17:32) Home Medications: Medication Instructions Recorded Tagrisso 80 mg PO DAILY@18 10/23/17 Dabigatran Etexilate Mesyl 150 mg PO BID 11/13/17 [Pradaxa 150 MG (*)] clonazePAM [klonoPIN (*)] 1 mg PO TID@,,11/13/17 oxyCODONE CR [Oxycontin] 40 mg PO TID@,,11/13/17 Magnesium Oxide [Magnesium Oxide 400 mg PO DAILY 11/14/17 400 mg (*)] Medical Decision Making - Data Points Laboratory Results: Laboratory Results 11/13/17 18:50 11/13/17 18:50 Medications Given: Celecoxib (Celebrex) 200 mg PO BID [facility] Stop: 05/13/18 20:59 Last Admin: 11/14/17 21:09 Dose: 200 mg Clonazepam (Klonopin) 1 mg PO TID PRN PRN Reason: Anxiety Stop: 05/12/18 23:30 Last Admin: 11/14/17 21:09 Dose: 1 mg Dabigatran (Pradaxa) 150 mg PO BID [facility] Stop: 05/13/18 20:59 Last Admin: 11/14/17 21:09 Dose: 150 mg Cefepime HCl 2 gm/ Sterile (Water) 12.5 mls @ 150 mls/hr IV Q8HRS AGUSTIN PRN Reason: Protocol Stop: 12/14/17 05:59 Last Admin: 11/14/17 21:28 Dose: 12.5 mls Vancomycin HCl 1.25 gm/ Sodium (Chloride) 250 mls @ 166.667 mls/hr IV Q8H [facility] Stop: 12/14/17 05:29 Last Admin: 11/14/17 22:40 Dose: 250 mls Miscellaneous Medication (Tagrisso) 80 mg PO DAILY@1800 [facility] Stop: 05/13/18 18:59 Last Admin: 11/14/17 19:53 Dose: 80 mg Oxycodone HCl (Oxycontin) 40 mg PO TID@0600,1400,2200 [facility] Stop: 11/24/17 05:59 Last Admin: 11/14/17 21:09 Dose: 40 mg Prednisone (Prednisone) 20 mg PO BIDMEAL AGUSTIN Stop: 05/13/18 19:14 Last Admin: 11/14/17 21:28 Dose: 20 mg Discontinued Medications Acetaminophen (Tylenol) 1,000 mg PO EDNOW ONE Stop: 11/13/17 18:52 Last Admin: 11/13/17 19:32 Dose: 1,000 mg Sodium Chloride (Ns) 1,000 mls @ 0 mls/hr IV EDNOW ONE; Wide Open PRN Reason: Protocol Stop: 11/13/17 18:23 Last Admin: 11/13/17 18:54 Dose: 1,000 mls Piperacillin/Tazobactam/Dextrose (Zosyn (Premix)) 100 mls @ 200 mls/hr IV EDNOW ONE PRN Reason: Protocol Stop: 11/13/17 21:09 Last Admin: 11/13/17 21:28 Dose: 100 mls Vancomycin HCl 1 gm/ Sodium (Chloride) 250 mls @ 250 mls/hr IV EDNOW ONE Stop: 11/13/17 22:29 Last Admin: 11/13/17 21:29 Dose: 250 mls Miscellaneous Medication (Tagrisso) 80 mg PO DAILY [facility] Stop: 05/13/18 10:59 Last Admin: 11/14/17 19:05 Dose: Not Given Departure - Departure Disposition: [facility]patient Acute Clinical Impression: Fever Qualifiers: Fever type: unspecified Qualified Code(s): R50.9 - Fever, unspecified Pneumothorax Qualifiers: Pneumothorax type: unspecified pneumothorax Qualified Code(s): J93.9 - Pneumothorax, unspecified Pneumonia Qualifiers: Pneumonia type: due to unspecified organism Laterality: left Lung location: upper lobe of lung Qualified Code(s): J18.1 - Lobar pneumonia, unspecified organism Condition: Fair
[2017-11-13] MEDS ORDERED: NS 1,000 ML IV ONE (18:22)
[2017-11-13] MEDS ORDERED: ACETAMINOPHEN 500 MG TAB PO ONE (18:51)
--- NOTE | 2017-11-13 18:57 | CPEKG ---
Heart Rate: 94 RR Interval: 638 P-R Interval: 144 QRSD Interval: 74 QT Interval: 332 QTC Interval: 416 P [place]: 57 QRS [place]: 36 T Wave [place]: 44 EKG Severity - NORMAL ECG - EKG Impression: SINUS RHYTHM Electronically Signed By: Ishaan Lehman 13-Nov-2017 23:13:41
[2017-11-13 19:07] LABS: PLATELET COUNT 153 10^3/uL (150-400)
[2017-11-13 19:14] LABS: INR 1.4 (0.83-1.16); PROTIME(PATIENT) 17.3 SEC (12.0-15.0)
[2017-11-13] MEDS ORDERED: IOPAMIDOL (ISOVUE 370) 100 ML BTL IV ONE (19:36)
[2017-11-13 20:00] LABS: CREATINE KINASE 48 IU/L (0-224)
[2017-11-13] MEDS ORDERED: VANCOMYCIN HCL/NORMAL SALINE 250 ML IV ONE (20:40)
[2017-11-13] MEDS ORDERED: PIPERACILLIN/TAZO 4.5 GM/DEX 100 ML IV ONE (20:40)
[2017-11-13] MEDS ORDERED: VANCOMYCIN 1 GM in NS 250 ML IV ONE (21:30)
[2017-11-13] MEDS ORDERED: ONDANSETRON 4 MG/2 ML VIAL IVP PRN (22:09)
[2017-11-13] MEDS ORDERED: ACETAMINOPHEN 325 MG TAB PO PRN (22:09)
[2017-11-13] MEDS ORDERED: oxyCODONE IR 5 MG TAB PO PRN (22:09)
[2017-11-13] MEDS ORDERED: ONDANSETRON DISINTEGRATING 4 MG TAB PO PRN (22:09)
--- NOTE | 2017-11-14 00:27 | PDGENHP ---
History and Physical - Chief Complaint Fever - History of Present Illness 62 yo M w/ Stage IV NSCLC presents with fever. Patient received IVIG therapy today. After the infusion he noticed dizziness, lightheadedness, and fever. He went home and felt worse with a fever measured at 101.8. In the ED he was again noted to be febrile with T of 38.2. Imaging was revealing of focal left sided consolidation and small L sided pneumothorax as well as progressing metastatic disease. Review of records reveals several admissions for recurrent pneunomias. At the time of my evaluation patient is denying symptoms after receiving antibiotics and pain medication. History Information - Allergies/Home Medication List Allergies/Adverse Reactions: No Known Allergies Allergy (Verified 11/13/17 17:32) Home Medications: Tagrisso 80 mg PO DAILY 10/23/17 [Last Taken Unknown] Dabigatran Etexilate Mesyl [Pradaxa 150 MG (*)] 150 mg PO BID 11/13/17 [Last Taken Unknown] clonazePAM [klonoPIN (*)] 1 mg PO TID 11/13/17 [Last Taken 11/13/17] oxyCODONE CR [Oxycontin] 40 mg PO TID 11/13/17 [Last Taken 11/13/17] I have personally reviewed and updated: family history, medical history - Past Medical History atrial fibrillation, cancer Additional medical history: Neuropathy - Family History Positive for: cancer - Social History Smoking Status: Former smoker Review of Systems Review of Systems: ROS: 10pt was reviewed & negative except for what was stated in HPI & below Physical Exam Physical Exam: Temp Pulse Resp BP Pulse Ox 36.9 C 85 16 100/61 97 11/14/17 00:20 11/14/17 00:20 11/14/17 00:20 11/14/17 00:20 11/14/17 00:20 O2 (L/minute) 3 Constitutional: no apparent distress, chronically ill appearing Eyes: PERRL, EOMI Ears, Nose, Mouth, Throat: moist mucous membranes, no oral mucosal ulcers Cardiovascular: regular rate and rhythym, no murmur, rub, or gallop Respiratory: no respiratory distress, rhonchi (Left-sided) Gastrointestinal: normoactive bowel sounds, soft, non-tender abdomen Skin: warm, normal color Musculoskeletal: full muscle strength, no muscle tenderness Neurologic: AAOx3, CN II-XII Intact Psychiatric: interacting appropriately, not anxious Lab Data & Imaging Review 11/13/17 18:50 11/13/17 18:50 WBC 3.25 10^3/uL (3.80-9.50) L 11/13/17 18:50 RBC 3.78 10^6/uL (4.40-6.38) L 11/13/17 18:50 Hgb 10.7 g/dL (13.7-17.5) L 11/13/17 18:50 Hct 32.3 % (40.0-51.0) L 11/13/17 18:50 MCV 85.4 fL (81.5-99.8) 11/13/17 18:50 MCH 28.3 pg (27.9-34.1) 11/13/17 18:50 MCHC 33.1 g/dL (32.4-36.7) 11/13/17 18:50 RDW 13.7 % (11.5-15.2) 11/13/17 18:50 Plt Count 153 10^3/uL (150-400) 11/13/17 18:50 MPV 9.3 fL (8.7-11.7) 11/13/17 18:50 Neut % (Auto) 72.7 % (39.3-74.2) 11/13/17 18:50 Lymph % (Auto) 13.5 % (15.0-45.0) L 11/13/17 18:50 [place] % (Auto) 11.7 % (4.5-13.0) 11/13/17 18:50 Eos % (Auto) 1.2 % (0.6-7.6) 11/13/17 18:50 Baso % (Auto) 0.3 % (0.3-1.7) 11/13/17 18:50 Nucleat RBC Rel Count 0.0 % (0.0-0.2) 11/13/17 18:50 Absolute Neuts (auto) 2.36 10^3/uL (1.70-6.50) 11/13/17 18:50 Absolute Lymphs (auto) 0.44 10^3/uL (1.00-3.00) L 11/13/17 18:50 Absolute Monos (auto) 0.38 10^3/uL (0.30-0.80) 11/13/17 18:50 Absolute Eos (auto) 0.04 10^3/uL (0.03-0.40) 11/13/17 18:50 Absolute Basos (auto) 0.01 10^3/uL (0.02-0.10) L 11/13/17 18:50 Absolute Nucleated RBC 0.00 10^3/uL (0-0.01) 11/13/17 18:50 Immature Gran % 0.6 % (0.0-1.1) 11/13/17 18:50 Immature Gran # 0.02 10^3/uL (0.00-0.10) 11/13/17 18:50 PT 17.3 SEC (12.0-15.0) H 11/13/17 18:50 INR 1.40 (0.83-1.16) H 11/13/17 18:50 APTT 50.7 SEC (23.0-38.0) H 11/13/17 18:50 D-Dimer 3.51 ug/mLFEU (0.00-0.50) H 11/13/17 18:50 VBG Lactic Acid 1.2 mmol/L (0.7-2.1) 11/13/17 18:50 Sodium 132 mEq/L (135-145) L 11/13/17 18:50 Potassium 4.5 mEq/L (3.5-5.2) 11/13/17 18:50 Chloride 98 mEq/L (97-110) 11/13/17 18:50 Carbon Dioxide 25 mEq/l (22-31) 11/13/17 18:50 Anion Gap 9 mEq/L (8-16) 11/13/17 18:50 BUN 14 mg/dL (7-23) 11/13/17 18:50 Creatinine 0.7 mg/dL (0.7-1.3) 11/13/17 18:50 Estimated GFR > 60 11/13/17 18:50 Glucose 107 mg/dL (70-100) H 11/13/17 18:50 Calcium 8.5 mg/dL (8.5-10.4) 11/13/17 18:50 Magnesium 1.8 mg/dL (1.6-2.3) 11/13/17 18:50 Total Bilirubin 0.5 mg/dL (0.1-1.4) 11/13/17 18:50 Conjugated Bilirubin 0.4 mg/dL (0.0-0.5) 11/13/17 18:50 Unconjugated Bilirubin 0.1 mg/dL (0.0-1.1) 18 18:50 AST 18 IU/L (17-59) 11/13/17 18:50 ALT 23 IU/L (21-72) 11/13/17 18:50 Alkaline Phosphatase 71 IU/L (38-126) 11/13/17 18:50 Creatine Kinase 48 IU/L (0-224) 11/13/17 18:50 CK-MB (CK-2) Fraction < 0.22 ng/mL (0.00-3.19) 11/13/17 18:50 Troponin I < 0.012 ng/mL (0.000-0.034) 11/13/17 18:50 NT-Pro-B Natriuret Pep 122 pg/mL (0-125) 11/13/17 18:50 Total Protein 8.2 g/dL (6.3-8.2) 11/13/17 18:50 Albumin 3.4 g/dL (3.5-5.0) L 11/13/17 18:50 Imaging Review: Imaging Impressions Chest X-Ray 11/13/17 18:22 Impression: 1. Small left apical pneumothorax. 2. Increasing nodularity in the lung bases bilaterally along with increasing left paracentral spinal soft tissue thickening. 3. Diminished lung volumes. Results called to Dr. Roberts at 6:45 PM. Chest/Thorax CTA 11/13/17 19:29 Impression: 1. Negative CT examination of the chest for acute pulmonary thromboembolic disease. 2. Moderate left pleural effusion and small anterior left pneumothorax. 3. Evidence of progressive pulmonary metastatic disease predominantly to the lower lungs bilaterally, with multiple new and enlarging pulmonary nodules. 4. Focal airspace consolidation left upper lobe, focal pneumonia versus additional malignant involvement. 5. Soft tissue density within the left side of the mediastinum is suspicious for malignant involvement. Results called to Dr. Tavo Roberts at 8:40 p.m. at the time of the interpretation. Assessment & Plan Assessment: 62 yo M w/ Stage IV NSCLC presents with pneumonia and small pneumothorax. Plan: 1. Sepsis 2/2 Pneumonia - Present on admission; 4/4 SIRS criteria positive. Pneumonia as source suspected based on fever and focal consolidation in [place]. Review of records reveals multiple prior admissions for recurrent pneumonias in the setting of known malignancy. - Vancomycin, Cefepime for broad coverage noting immunocompromised and high risk for resistant organisms - Blood cultures ordered 2. Pneumothorax - Small anterior left pneumothorax noted on admission CT. Patient is not in respiratory distress. Imaging reviewed by Dr. Amezquita who did not feel a chest tube was warranted. - Monitor with daily AM CXR - Continuous O2 3. Stage IV NSCLC - On Tarceva therapy; imaging on admission concerning for progression of disease. - Continue home Oxycontin 4. Hx AF - On dabigatran for AC, in NSR on admission. Diet - Regular Code - Full Ppx - dabigatran Dispo - Admit under inpatient status noting need for IV antibiotics and imaging monitoring of pneumothorax.
--- NOTE | 2017-11-14 02:45 | PDMN ---
Medical Necessity Medical necessity: C/M review: A or 2 days LOS; Acute and persistent sepsis secondary to pneumonia, focal consolidation in [place] on CT / CXR, small anterior left pneumothorax on admission CT, WBC 3.25, D-Dimer 3.51, Na 132, 101.8 temp at home, 38.2 temp in ED, requiring planned CXR 11/14/2017, ongoing IV Cefepime Q 8 hrs., IV Vancomycin Q 8 hrs., pulse oximetry, supplemental O2, acute inpt OT, comorbid stage IV NSCLC, history of atrial fibrillation on chronic anticoagulation. MD anticipates > 2 MN LOS for ongoing med nec for eval and TX of above.
[2017-11-14] MEDS: CEFEPIME HCL 2 GM in STERILE WATER INJ 12.5 ML IV SCH ×3 (05:30→21:28)
[2017-11-14] MEDS: clonazePAM 1 MG TAB PO PRN ×3 (05:42→21:09)
[2017-11-14] MEDS: VANCOMYCIN 1.25 GM in NS 250 ML IV SCH ×3 (06:03→22:40)
--- NOTE | 2017-11-14 07:27 | SOAPPROG ---
SOAP Progress Note Assessment/Plan: Assessment: following peripherally. CXR with stable pneumothorax. I do not recommend a chest tube at this time. Please call if worsens Plan: 11/14/17 07:27 Objective: Vital Signs Temp Pulse Resp BP Pulse Ox 37.1 C 71 18 95/57 L 100 11/14/17 04:54 11/14/17 04:54 11/14/17 04:54 11/14/17 04:54 11/14/17 04:54 11/13/17 11/14/17 11/15/17 05:59 05:59 05:59 Intake Total 400 Output Total 1150 Balance -750 PT 17.3 SEC (12.0-15.0) H 11/13/17 18:50 INR 1.40 (0.83-1.16) H 11/13/17 18:50 ICD10 Worksheet Patient Problems: Problems Problem Status Onset Fever Acute Pneumonia Acute Pneumothorax Acute Anemia Acute Atrial fibrillation with RVR Acute Dehydration Acute Generalized weakness Acute Lung cancer Acute Sepsis Acute Vomiting Acute
[2017-11-14 07:49] LABS: PLATELET COUNT 127 10^3/uL (150-400)
--- NOTE | 2017-11-14 10:18 | HOSPPROG ---
Hospitalist Progress Note Assessment/Plan: DIAGNOSES: -suspected left upper lobe pneumonia -acute sepsis -left pleural effusion moderate size, with small left pneumothorax * No change in small pneumothorax overnight * with quite a bit of pleuritic pain suspect that this is either parapneumonic infection or a empyema, but etiology unknown in could be metastatic disease -ongoing chronic cancer pain * Currently is on his home dose of narcotic, with good role of his ongoing pain at his acute pleuritic pain needs better relief -pancytopenia due to cancer and chemotherapy * Minimally neutropenic at this time, but anticipate that this may worsen and so will not changes antibiotics at this moment follow closely -non-small cell lung cancer with metastatic disease * Appears to have some progression of disease at the time based on CT scan despite Tagrisso PLANS: -continue current antibiotics, follow blood cultures -I have ordered a ultrasound-guided thoracentesis for diagnostic and therapeutic purposes -will add some prednisone to see if this helps with his pleuritic pain, consider colchicine is that is not effective -resume his Pradaxa once with thoracentesis done -follow blood counts very closely, consider narrowing his antibiotic coverage if his white cell count stabilizes but if neutropenia worsens will continue the current empiric medicine -I reviewed the patient's case with Dr. Cecilia Beltran today and we have elected to continue his Tagrisso therapy at this time; Dr. Beltran will evaluate the patient in consultation I reviewed all of the above in detail today with the patient and his at the bedside SUBJECTIVE: Complains of ongoing pleuritic pain on the left side, with some cough and shortness of No rigors since last night Poor appetite OBJECTIVE Vitals reviewed: T-max 38.2 degrees overnight, afebrile at this time, still mild tachycardic otherwise stable vitals [employer], my review: Sinus rhythm Exam: alert oriented, appears fairly uncomfortable and severe fatigued skin warm dry color is pale resps mildly labored lungs decreased BSs at left base without rales heart regular abd soft nondistended nontender, bowel sounds present limbs warm, no edema iv site ok I reviewed the images from today's chest x-ray compared with yesterday's chest x -ray, there is no change in the small apical left pneumothorax and moderate left pleural effusion I also reviewed the images from yesterday CT scan. I agree that there is a possible pneumonia but hard to differentiate that left upper lobe disease from static disease, moderate left effusion small pneumothorax Microbiology data: blood cultures negative so far Lab data: Red cell count and platelets and white cell count all lower today than yesterday , still with 1600 neutrophils Objective: Vital Signs Temp Pulse Resp BP Pulse Ox 36.4 C 68 12 90/56 L 100 11/14/17 07:59 11/14/17 07:59 11/14/17 07:59 11/14/17 07:59 11/14/17 07:59 Laboratory Results 11/14/17 07:30 11/14/17 07:30 11/13/17 11/14/17 11/15/17 06:59 06:59 06:59 Intake Total 400 Output Total 1150 Balance -750 PT 17.3 SEC (12.0-15.0) H 11/13/17 18:50 INR 1.40 (0.83-1.16) H 11/13/17 18:50 - Time Spent With Patient Time Spent with Patient: greater than 35 minutes Time Spent with Patient: Greater than 35 minutes spent on this patients care, greater than 50% of time spent counseling, educating, and coordinating care regarding the above mentioned plan. ICD10 Worksheet Patient Problems: Problems Problem Status Onset Fever Acute Pneumonia Acute Pneumothorax Acute Anemia Acute Atrial fibrillation with RVR Acute Dehydration Acute Generalized weakness Acute Lung cancer Acute Sepsis Acute Vomiting Acute
[2017-11-14] MEDS ORDERED: TAGRISSO 80 MG PO SCH ×2 (10:30→11:00)
--- NOTE | 2017-11-14 14:05 | GCON ---
[f rep st] CONSULTATION NEW PATIENT CONSULTATION. REQUESTING PHYSICIAN: Josué Davenport M.D. REASON FOR CONSULTATION: Patient known to Dr. Shaw has underlying stage IV non-small cell lung cancer, admitted with chest pain and shortness of breath. HISTORY: The patient is a 62-year-old gentleman with stage IV non-small cell lung cancer. He was diagnosed in January of 2017 with involvement of both lungs. EGFR Exon 21 mutation was discovered. He was initially found to have an endobronchial left mainstem lesion and had stent placement June 10, 2017. He was started on erlotinib in February of 2017. This was discontinued due to toxicity, as well as progression. He also completed a 2-week course of radiation therapy in July of 2017 to further palliate endobronchial lesion and postobstructive pneumonia. Patient has been under the care of Dr. Olu Shaw as well as Dr. Wu at the [facility] and is currently on osimertinib. He is tolerating this drug very well. He was due for restaging scans next week, but unfortunately presented with fever and significant chest pain. He reports fever of 101.8 and continued to be febrile in the ED on admission. Imaging revealed left-sided consolidation and small left-sided pneumothorax. He did get a CTA of the chest yesterday that was negative for acute PE, but showed moderate left pleural effusion and small anterior left pneumothorax. He has evidence of progression of pulmonary metastatic disease, predominantly in lower lungs bilaterally, specifically left lower lobe has grown from 1.0 to 0.9 to 2.8 cm and right lower lobe has grown from 0.9 x 1.2 and is now 3.5 cm. This was on comparison from CT in July at [facility]. 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 He has been evaluated at [facility] with Neurology. He has had extensive neurologic workup and it was decided upon to have IVIG at [facility] x5 days. He did receive these infusions last week and is due for 1 more next week. The patient reported to his daughter that the pain and tingling in his fingertips is slightly better. He has had an LP and an MRI that were both negative. I will mention his last brain MRI was on October 05, 2017. He does have a dural base nodule at the high left frontal region and this had most recently decreased in size. REVIEW OF SYSTEMS: Fever, cough, left upper chest pain and shortness of breath. Denies abdominal pain, new bone pain or neurologic changes. Daughter reports that he remains slightly delirious because of narcotic use. PAST MEDICAL HISTORY: Also includes atrial fibrillation. FAMILY HISTORY: Positive for cancer. HOME MEDICATIONS: Osimertinib, dabigatran, clonazepam, and oxycodone. PHYSICAL EXAMINATION TODAY: VITAL SIGNS: Show blood pressure of 88/56, heart rate is 73, respiration rate 14, saturating 92% on room air, temperature is currently 37.8, and he has been afebrile for 24 hours. GENERAL: Patient is asleep, not alert, but arouses to stimulation. HEENT: Anicteric. Oropharynx is relatively clear. HEART: Regular rate and rhythm. LUNGS: He has coarse breath sounds, left upper lobe. Otherwise seems to be moving air fairly well. He has a cough with inspiration. ABDOMEN: Soft, nontender. No enlarged liver , spleen. LOWER EXTREMITIES: No significant edema. NEUROLOGIC: He is asleep. LABORATORY: Labs today show a white blood cell count of 2.8 with an ANC of 1600 , hemoglobin 9.7, hematocrit 29.4, platelet count of 127,000. INR 1.4. Lactic acid 1.2. Sodium 139, BUN 11, creatinine 0.6, calcium 8.2, albumin of 2.4. BNP was 122. ASSESSMENT AND PLAN: A 62-year-old gentleman with stage IV EGFR mutated non- small cell lung cancer who presented with chest pain, fever, and dyspnea. Vital signs suggest possible sepsis. 1. Fever and chest pain. Plan for diagnostic and therapeutic thoracentesis today. He also has a small apical left pneumothorax that is largely contributing to the pain, but too small to require a chest tube. Although infection remains a possibility given vital signs, fever, clinical presentation , this also could be worsening of malignant process. I agree we need to rule out parapneumonic pneumonia or empyema. Broad-spectrum antibiotics coverage on board. 2. Stage IV non-small cell lung cancer, EGFR mutated, most recently on osimertinib. Based on my comparison of July CT to current CTA, it does look like he is progressing in both right and left lower lobes. I am concerned he is losing response to osimertinib. Would favor treating underlying infection if any and followup PET-CT as an outpatient if possible. I would continue osimertinib during this hospital admission. 3. Poly motor neuropathy. Extensive neuro workup. Has been on IVIG as an outpatient and due next week. Continue pain control. 4. Delirium from underlying narcotics. Continue to monitor. We will continue to follow this patient in the hospital and make recommendations as indicated. /[id number]/MODL MTDD
[2017-11-14] MEDS ORDERED: LIDOCAINE 1% 300 MG/30 ML SDV ONE (15:46)
--- NOTE | 2017-11-14 17:15 | ASMTCMCOM ---
CM Note CM Note Notes: Pt admitted w/PNA, pneumo, going for thoracentiesis today; per H&P, pt has stage 4 lung cancer. DC needs not clear yet, CM will need to meet w/pt. He has supportive . Date Signed: 11/14/2017 05:15 PM Electronically Signed By:Snow Faith RN
[2017-11-14] MEDS: OSIMERTINIB 80 MG PO SCH (19:53)
[2017-11-14] MEDS: DABIGATRAN ETEXILATE MESYL 150 MG CAP PO SCH (21:09)
[2017-11-14] MEDS: predniSONE 20 MG TAB PO SCH (21:28)
[2017-11-15 00:17] VITALS: RESP 16
[2017-11-15] MEDS: CEFEPIME HCL 2 GM in STERILE WATER INJ 12.5 ML IV SCH ×3 (05:12→21:38)
[2017-11-15] MEDS: clonazePAM 1 MG TAB PO PRN ×3 (05:12→21:37)
[2017-11-15] MEDS: VANCOMYCIN 1.25 GM in NS 250 ML IV SCH (05:21)
[2017-11-15] MEDS: predniSONE 20 MG TAB PO SCH ×2 (08:56→18:15)
[2017-11-15] MEDS: DABIGATRAN ETEXILATE MESYL 150 MG CAP PO SCH ×2 (08:57→21:38)
[2017-11-15] MEDS: MAGNESIUM OXIDE 400 MG TAB PO SCH (08:57)
--- NOTE | 2017-11-15 10:28 | SOAPPROG ---
SOAP Progress Note Assessment/Plan: Assessment/Plan: 62yo gentleman w Stage IV EGFR mutated NSCLC who p/w left sided CP, fever, and delirium - imaging w small apical left PTX and left pleural effusin 1. CP and fever - explained by imaging thoracentesis yesterday and pt much improved pleural fluid looks exudative but pH and glucose ok malignant vs infectious cultures and cytology pending on broad spectrum abx pt requesting discharge which is against my recommendation at this time fever may also have been from last weeks' series of IVIG? if d/c, will need close follow up this week 2. Stage IV EGFR mutated NSCLC - on osemertinib (oral TKI) based on scans from this admission compared to 07/2017, concerned for progression (RLL especially) left lung finding a little bit difficult to interpret in setting of possible infections; in addition, baseline scans in July and new oral therapy started in october encouraged to get planned PET this week and follow up w [facility] (appt ) if cytology positive, will definitely prove progression would consider repeating a biopsy (RLL) 3. poly motor neuropathy - extensive neuro w/u ?paraneoplastic on IVIG due tomorrow spent more than 45 mi w pt and d/w Dr Davenport Subjective: Feeling much better today much more alert Objective: Vital Signs Temp Pulse Resp BP Pulse Ox 35.9 C L 53 L 16 128/77 H 98 11/15/17 08:30 11/15/17 08:30 11/15/17 08:30 11/15/17 08:30 11/15/17 08:30 Microbiology 11/14/17 17:01 Gram Stain - Final Thoracic Fluid - Aspirate Laboratory Results 11/14/17 07:30 11/14/17 07:30 11/14/17 11/15/17 11/16/17 05:59 05:59 05:59 Intake Total 400 700 Output Total 1150 450 Balance -750 250 PT 17.3 SEC (12.0-15.0) H 11/13/17 18:50 INR 1.40 (0.83-1.16) H 11/13/17 18:50 Gen - chronically ill appearing, NAD HEENT - anicteric psych - tearful, anxious Neuro - alert and oriented ICD10 Worksheet Patient Problems: Problems Problem Status Onset Fever Acute Pneumonia Acute Pneumothorax Acute Anemia Acute Atrial fibrillation with RVR Acute Dehydration Acute Generalized weakness Acute Lung cancer Acute Sepsis Acute Vomiting Acute
--- NOTE | 2017-11-15 13:47 | HOSPPROG ---
Hospitalist Progress Note Assessment/Plan: DIAGNOSES: -suspected left upper lobe pneumonia -acute sepsis -left pleural effusion moderate size, with small left pneumothorax and significant pleuritic pain * No change in small pneumothorax overnight * After thoracentesis and addition of prednisone and Celebrex, his pain is notably decreased and he is breathing easier * Some laboratory abnormalities of the fluid including its cloudy yellow color and significant white count with predominance of neutrophils raise concern for parapneumonic or less likely empyema, the pH is okay LDH is somewhat elevated. Cultures are pending at this point. Cytology is also pending. -ongoing chronic cancer pain * Currently is on his home dose of narcotic, with good role of his ongoing pain -pancytopenia due to cancer and chemotherapy * Minimally neutropenic at this time, but anticipate that this may worsen and so will not changes antibiotics at this moment follow closely -non-small cell lung cancer with metastatic disease on targeted therapy * Appears to have some progression of disease at the time based on CT scan despite Tagrisso, though his last CT scan was 6 weeks before he started the tagrisso treatment and it is unclear whether there was significant growth during that 6 weeks, so unclear really whether he has had any progression of disease while on therapy. Patient feels much better today and is anxious to try and leave the hospital at this time. However discussed with him that as he has suspected infection with unidentified organism, including sepsis and a potential infected pleural effusion, I would not recommend sending him home until we at least have 48 hr of negative cultures, particularly as sending him home at this point would require changing his antibiotics. PLANS: -continue current antibiotics, follow blood cultures and pleural fluid cultures -repeat chest x-ray in the morning to reassess his pleural effusion and pneumothorax -continue prednisone for his pleuritic pain, consider colchicine is that is not effective -continue Pradaxa -I reviewed the patient's case with Dr. Cecilia Beltran today -potentially home soon 1-2 days if his cultures remain negative any continues to improve without reaccumulation of pleural fluid or other complications I reviewed all of the above in detail today with the patient and his at the bedside, and we had long discussion regarding the potential risks of resistant organisms, recurrence of pleural effusion, and other risks related to infection. As we have no identified organism would not recommend changing antibiotics at this moment or discharging today. SUBJECTIVE: Pleuritic pain much better and he is notably less dyspneic No rigors since last night Poor appetite is improving a bit OBJECTIVE Vitals reviewed: Afebrile overnight, tachycardia resolved, otherwise stable vitals [facility], my review: Sinus rhythm Exam: oriented, appears more relaxed and more comfortable today, more alert skin warm dry color is pale resps less labored lungs clear breath sounds heart regular abd soft nondistended nontender, bowel sounds present limbs warm, no edema iv site ok I reviewed the images from today's chest x-ray compared with yesterday's chest x -ray: There is a very small residual left pneumothorax, and very small residual left pleural effusion above the diaphragm, no change in the other lung densities compared to previous Microbiology data: blood cultures negative so far Pleural fluid cultures negative so far Objective: Vital Signs Temp Pulse Resp BP Pulse Ox 35.9 C L 53 L 16 128/77 H 98 11/15/17 08:30 11/15/17 08:30 11/15/17 08:30 11/15/17 08:30 11/15/17 08:30 Microbiology 11/14/17 17:01 Gram Stain - Final Thoracic Fluid - Aspirate Laboratory Results 11/14/17 07:30 11/14/17 07:30 11/14/17 11/15/17 11/16/17 06:59 06:59 06:59 Intake Total 400 700 Output Total 1150 450 Balance -750 250 PT 17.3 SEC (12.0-15.0) H 11/13/17 18:50 INR 1.40 (0.83-1.16) H 11/13/17 18:50 - Time Spent With Patient Time Spent with Patient: greater than 35 minutes Time Spent with Patient: Greater than 35 minutes spent on this patients care, greater than 50% of time spent counseling, educating, and coordinating care regarding the above mentioned plan. ICD10 Worksheet Patient Problems: Problems Problem Status Onset Fever Acute Pneumonia Acute Pneumothorax Acute Anemia Acute Atrial fibrillation with RVR Acute Dehydration Acute Generalized weakness Acute Lung cancer Acute Sepsis Acute Vomiting Acute
[2017-11-15] MEDS: VANCOMYCIN 1 GM in NS 250 ML IV SCH ×2 (14:00→21:38)
--- NOTE | 2017-11-15 14:10 | ASMTCMCOM ---
CM Note CM Note Notes: Chart reviewed. 62 year old male her with pneumonia and pnuemo in addition to stage IV lung cancer. Met with patient to discuss discharge plan of care. He is very emotional breaking down into tears. Tells me he left the premises and got into trouble. Per OT notes they recommend Home OT, PT eval pending. May also benefit from RN. Will make referral to [facility]. Patient is concerned about cost. CM to follow. Date Signed: 11/15/2017 02:08 PM Electronically Signed By:Abby Carter RN
[2017-11-15] MEDS: OSIMERTINIB 80 MG PO SCH (18:15)
[2017-11-16] MEDS: VANCOMYCIN 1 GM in NS 250 ML IV SCH (06:12)
[2017-11-16] MEDS: CEFEPIME HCL 2 GM in STERILE WATER INJ 12.5 ML IV SCH (06:12)
[2017-11-16] MEDS: clonazePAM 1 MG TAB PO PRN (06:13)
[2017-11-16 09:31] VITALS: BP 117/83; PULSE 110; TEMP 98; O2SAT 97
--- NOTE | 2017-11-16 09:34 | PDDCSUM ---
Discharge Summary Discharge Summary: DISCHARGE DIAGNOSES: -left pleural effusion and pneumothorax of uncertain etiology, possibilities include parapneumonic fluid verses malignant, less likely empyema -suspected left upper lobe pneumonia -acute sepsis due to the above -neutropenic fever -pancytopenia from chemotherapy -ongoing painful neuropathy due to chemotherapies -ongoing pain of cancer -ongoing metastatic lung cancer non-small cell, on targeted therapy with tagrisso CONSULTANTS: Dr. Cecilia Beltran PROCEDURES: CT scan of chest Ultrasound-guided thoracentesis HOSPITAL COURSE SUMMARY: This patient with known non-small cell lung cancer on tagrisso therapy presented to the hospital with fevers, tachycardia, shortness of breath and sharp pleuritic left chest pain. Imaging studies showed what appeared to be an area of left upper lobe pneumonia as well as a moderate size left pleural effusion and a very small apical left pneumothorax. Blood cultures were obtained and he was started on antibiotics. An ultrasound-guided thoracenteses removed 700 mL of cloudy yellow fluid that had 17,000 white blood cells neutrophil predominant. His pH was 7.3 LDH greater than 1000. Glucose was in okay range. This was felt to be most likely parapneumonic but could not rule out empyema with infection. At this time cultures have not grown anything but we are just short of the 48 hr before we finally call them negative. He was started on prednisone for his pleuritic pain along with some Celebrex and treated with antibiotics here. His fevers and sepsis resolved entirely. Between the various therapies his pleuritic pain has also completely resolved. He was looking quite toxic and ill at the time of admission but is looking pretty much back to his baseline and feels quite well at this time other than his chronic symptoms. At this point is felt that he is stable for discharge to home and he is strongly desiring to go home. I did talk with him about the fact that will be having to change antibiotic with no culture information and that he should watch very carefully for any return of fevers or other symptoms and have prompt attention of any if this occurs. He will need to be seen in clinic for careful follow-up with treatment of this illness. In terms of the pneumothorax, the cause of this is uncertain but is been followed carefully with repeat x-rays and remains unchanged in size and too small for chest tube drainage. This should be reassessed with x-ray in the near future. In terms of his tumor disease he has some increase in the size of at least 1 lung lesion and 1 lymph node compared to the previous chest CT. However notably that chest CT was taken 6 weeks before he started his tagrisso therapy, so we are really unable to assess the at this time by the CT scans whether his current therapy is improving things or if he is progressing on therapy. He will certainly need ongoing imaging and other assessments to determine this, and he does have a PET scan scheduled upcoming in the clinic. Notably with this new pleural effusion it is possible that is a malignant effusion and cytologies are pending. If he does have tumor cells in the fluid that could potentially be an indication of some progression of disease, however again is not really known exactly when this effusion developed as his last imaging was several weeks before he started therapy. PENDING TEST RESULTS: Final blood cultures and final culture report from pleural fluid Cytology from pleural fluid MEDICATION CHANGES: Addition of prednisone 20 mg for 2 more days Addition of Levaquin for 7 more days FOLLOW-UP PLAN: He is to be seen at [facility] this week for a follow-up assessment from this acute illness He also has an appointment today at [facility] for IV Ig infusion for his neuropathy Greater than 35 minutes bedside and care coordination time today
[2017-11-16] MEDS: predniSONE 20 MG TAB PO SCH (09:43)
[2017-11-16] MEDS: MAGNESIUM OXIDE 400 MG TAB PO SCH (09:43)
[2017-11-16] MEDS: DABIGATRAN ETEXILATE MESYL 150 MG CAP PO SCH (09:43)
--- NOTE | 2017-11-16 09:59 | ASMTCMCOM ---
CM Note CM Note Notes: Chart reviewed. Medically stable for discharge to home. Per PT no needs upon discharge. CM available should needs arise. Date Signed: 11/16/2017 09:58 AM Electronically Signed By:Abby Carter RN
--- NOTE | 2017-11-16 10:00 | ASMTLACE ---
LACE Length of stay for Answers: 3 days current admission Acuity / Level of Answers: Yes Care: Did the patient have an inpatient admission? Comorbidities - select Answers: Any tumor (including all that apply lymphoma or leukemia) # of Emergency department Answers: 1-2 visits in the last 6 months Social determinants Answers: Mental health diagnosis (anxiety, depression, pers onality disorders, etc.) Score: 12 Date Signed: 11/16/2017 09:59 AM Electronically Signed By:Abby Carter RN
== END 2017-11-16 10:14 | disposition home or self-care (01) | DRG 871 ==
LOC: F2W 22:58 → F1N 11-14 18:06
PROVIDERS: ADMIT Student in an Organized Health Care Education/Training Program; ATTEND Internal Medicine
PROC: BB4BZZZ Ultrasonography of Pleura (ICD-10-PCS; principal; 2017-11-14)
PROC: 0W9B3ZX Drainage of Left Pleural Cavity, Percutaneous Approach, Diagnostic (ICD-10-PCS; principal; 2017-11-14)
DX: A41.89 Other specified sepsis (principal); J18.9 Pneumonia, unspecified organism; J93.9 Pneumothorax, unspecified; J90 Pleural effusion, not elsewhere classified; C34.31 Malignant neoplasm of lower lobe, right bronchus or lung; C34.32 Malignant neoplasm of lower lobe, left bronchus or lung; D61.810 Antineoplastic chemotherapy induced pancytopenia; G89.3 Neoplasm related pain (acute) (chronic); D70.9 Neutropenia, unspecified; R50.81 Fever presenting with conditions classified elsewhere; G62.9 Polyneuropathy, unspecified; R00.0 Tachycardia, unspecified; R07.89 Other chest pain; E78.5 Hyperlipidemia, unspecified; Z87.01 Personal history of pneumonia (recurrent); Z87.891 Personal history of nicotine dependence
CPT/HCPCS: 96365; 97116-GP; 97161-GP; 97165-GO; J0692; J2543; J3370; J7512; Q9967

== ENCOUNTER → 2017-11-20 | Outpatient (CLI) | payer OTHER | LOC: FIMAGING 16:47 | PROVIDERS: ATTEND Nurse Practitioner | DX: R91.8 Other nonspecific abnormal finding of lung field (principal) ==

== ENCOUNTER 2018-02-03 16:47 | Inpatient (IN) | payer OTHER ==
[2018-02-03] MEDS ORDERED: NS 1,000 ML IV ONE (16:56)
--- NOTE | 2018-02-03 17:03 | EDPHY ---
HPI/HX/ROS/PE/MDM Narrative: CHIEF COMPLAINT: Aggressive behavior HPI: The patient is a 62-year-old male with a history of metastatic non-small cell lung cancer for which she currently is on home hospice. Patient was sent to the ER at request of his family and the hospice medical services manager as the patient has had increasing aggressive behavior and possible psychosis over the last week including contacting friends and telling them that he was being held hostage. The patient psychiatrist apparently feels this is not consistent with simple end of life symptoms. They feel that they are unable to care for him safely at home and have sent here for further evaluation. There is no history of fall, recent illness or focal complaint. The patient apparently received Roxanol, Seroquel, and clonazepam prior to arrival. REVIEW OF SYSTEMS: Unable to obtain from patient secondary altered mental status. PMH: Includes metastatic non-small cell lung cancer. SOCIAL HISTORY: Lives at home, currently on home hospice. . PHYSICAL EXAM: General:Patient is alert, in no acute distress. He appears chronically ill and somewhat sedated. Head, normocephalic, atraumatic ENT:Eyes are normal to inspection. ENT inspection normal. Neck: Normal inspection. Full range of motion. Respiratory:No respiratory distress. Cardiovascular: Regular rate and rhythm. Strong peripheral pulses. Normal cap refill. Abdomen:The abdomen is nontender to palpation. There are no peritoneal signs. Back: Normal to inspection. No tenderness to palpation. Skin: Normal color. No rash. Warm and dry. Extremities: Normal appearance. Full range of motion. Neuro: No focal deficits.. ED Course: 6:25 PM- The family has opted to forgo a brain MRI. I spoke with Dr. Chambers, psychiatry, regarding this patient. Based on his phone appraisal, he thinks primary psychiatric diagnosis is unlikely. MDM: This patient was sent to the ED from Hospice for concern of possible undiagnosed psychiatric disease and violent behavior at home. The physicians I have consulted with all seem to agree that this likely represents delerium rather than a chronic classic psychiatric condition, as do I, so I do not personally think psychiatric placement is warranted. Family feels unsafe taking the patient home so we will need to admit him overnight to ensure everyone's safety. Our initial ED workup was negative for emergency medical condition, but somewhat limited by refusal of MRI and sedated state of patient. - Data Points Imaging Results: Imaging Impressions Head CT 02/03/18 17:00 Impression: There is no acute intracranial abnormality identified on this unenhanced CT evaluation. If there is further clinical concern regarding the patient's symptoms, MR imaging (with and without contrast) is suggested, if not otherwise contraindicated. Findings were discussed with Levi Kumar MD at 17:47, on 02/03/2018. Laboratory Results: Laboratory Results 02/03/18 17:17 02/03/18 17:17 02/03/18 02/03/18 02/03/18 17:21 17:17 17:17 WBC RBC Hgb Hct MCV MCH MCHC RDW Plt Count MPV Neut % (Auto) Lymph % (Auto) Creek % (Auto) Eos % (Auto) Baso % (Auto) Nucleat RBC Rel Count Absolute Neuts (auto) Absolute Lymphs (auto) Absolute Monos (auto) Absolute Eos (auto) Absolute Basos (auto) Absolute Nucleated RBC Immature Gran % Immature Gran # RBC/WBC/PLT Morphology Platelet Estimate PT 15.9 SEC H SEC (12.0-15.0) INR 1.25 H (0.83-1.16) APTT 31.3 SEC SEC (23.0-38.0) Sodium 138 mEq/L mEq/L (135-145) Potassium 4.0 mEq/L mEq/L (3.3-5.0) Chloride 92 mEq/L L mEq/L (97-110) Carbon Dioxide 29 mEq/l mEq/l (22-31) Anion Gap 17 mEq/L H mEq/L (8-16) BUN 12 mg/dL mg/dL (7-23) Creatinine 0.5 mg/dL L mg/dL (0.7-1.3) Estimated GFR > 60 Glucose 117 mg/dL H mg/dL (70-100) Calcium 9.1 mg/dL mg/dL (8.5-10.4) Total Bilirubin 0.8 mg/dL mg/dL (0.1-1.4) Conjugated Bilirubin 0.7 mg/dL H mg/dL (0.0-0.5) Unconjugated Bilirubin 0.1 mg/dL mg/dL (0.0-1.1) AST 18 IU/L IU/L (17-59) ALT 21 IU/L IU/L (21-72) Alkaline Phosphatase 75 IU/L IU/L (38-126) POC Troponin I 0.00 ng/mL ng/mL (0.00-0.08) Total Protein 6.8 g/dL g/dL (6.3-8.2) Albumin 3.3 g/dL L g/dL (3.5-5.0) 02/03/18 17:17 WBC 6.59 10^3/uL 10^3/uL (3.80-9.50) RBC 4.26 10^6/uL L 10^6/uL (4.40-6.38) Hgb 11.3 g/dL L g/dL (13.7-17.5) Hct 35.5 % L % (40.0-51.0) MCV 83.3 fL fL (81.5-99.8) MCH 26.5 pg L pg (27.9-34.1) MCHC 31.8 g/dL L g/dL (32.4-36.7) RDW 15.7 % H % (11.5-15.2) Plt Count 242 10^3/uL 10^3/uL (150-400) MPV 8.7 fL fL (8.7-11.7) Neut % (Auto) 85.2 % H % (39.3-74.2) Lymph % (Auto) 4.4 % L % (15.0-45.0) Creek % (Auto) 9.1 % % (4.5-13.0) Eos % (Auto) 0.6 % % (0.6-7.6) Baso % (Auto) 0.2 % L % (0.3-1.7) Nucleat RBC Rel Count 0.0 % % (0.0-0.2) Absolute Neuts (auto) 5.61 10^3/uL 10^3/uL (1.70-6.50) Absolute Lymphs (auto) 0.29 10^3/uL L 10^3/uL (1.00-3.00) Absolute Monos (auto) 0.60 10^3/uL 10^3/uL (0.30-0.80) Absolute Eos (auto) 0.04 10^3/uL 10^3/uL (0.03-0.40) Absolute Basos (auto) 0.01 10^3/uL L 10^3/uL (0.02-0.10) Absolute Nucleated RBC 0.00 10^3/uL 10^3/uL (0-0.01) Immature Gran % 0.5 % % (0.0-1.1) Immature Gran # 0.03 10^3/uL 10^3/uL (0.00-0.10) RBC/WBC/PLT Morphology TNP Platelet Estimate TNP PT INR APTT Sodium Potassium Chloride Carbon Dioxide Anion Gap BUN Creatinine Estimated GFR Glucose Calcium Total Bilirubin Conjugated Bilirubin Unconjugated Bilirubin AST ALT Alkaline Phosphatase POC Troponin I Total Protein Albumin Medications Given: Discontinued Medications Sodium Chloride (Ns) 1,000 mls @ 0 mls/hr IV EDNOW ONE; Wide Open PRN Reason: Protocol Stop: 02/03/18 16:57 Last Admin: 02/03/18 17:21 Dose: Not Given Point of Care Test Results: Chemistry 02/03/18 17:21 POC Troponin I 0.00 ng/mL ng/mL (0.00-0.08) General Time Seen by Provider: 02/03/18 16:52 Initial Vital Signs: Initial Vital Signs Temperature (C) 36.3 C 02/03/18 17:08 Heart Rate 118 H 02/03/18 17:08 Respiratory Rate 14 02/03/18 17:08 Blood Pressure 104/70 02/03/18 17:08 O2 Sat (%) 97 02/03/18 17:08 O2 Delivery Mode Nasal Cannula O2 (L/minute) 2 Allergies/Adverse Reactions: No Known Allergies Allergy (Verified 02/03/18 16:59) Home Medications: Medication Instructions Recorded Methadone HCl [Methadone 5 mg (*)] 5 mg PO DAILY@12 02/03/18 Methadone HCl [Methadone 5 mg (*)] 10 mg PO BID 02/03/18 QUEtiapine FUMARATE [Seroquel 50 50 mg PO TID PRN 02/03/18 mg (*)] clonazePAM [Klonopin (*)] 0.75 mg PO DAILY@02/03/18 clonazePAM [Klonopin (*)] 1 mg PO DAILY@14 02/03/18 clonazePAM [Klonopin (*)] 1.25 mg PO HS 02/03/18 morphINE [Roxanol 10 mg/0.5 ml 20 - 30 mg PO Q4H PRN 02/03/18 oral soln (*)] Departure - Departure Disposition: [facility]
--- NOTE | 2018-02-03 17:05 | CPEKG ---
Heart Rate: 114 RR Interval: 526 P-R Interval: 148 QRSD Interval: 64 QT Interval: 328 QTC Interval: 452 P [place]: 81 QRS [place]: 74 T Wave [place]: 68 EKG Severity - BORDERLINE ECG - EKG Impression: SINUS TACHYCARDIA EKG Impression: BORDERLINE T ABNORMALITIES, ANT-LAT LEADS Electronically Signed By: Mercedez Isaac 04-Feb-2018 18:19:31
[2018-02-03 17:30] LABS: PLATELET COUNT 242 10^3/uL (150-400)
[2018-02-03 17:39] LABS: INR 1.25 (0.83-1.16); PROTIME(PATIENT) 15.9 SEC (12.0-15.0)
--- NOTE | 2018-02-03 19:56 | ASMTCMCOM ---
CM Note CM Note Notes: Patient presents to ER accompanied by family and caregivers after Dr. Kumar received a call from the biomedical engineer at [facility] hospice with concerns that patient is in need of psychiatric evaluation. Patient is living at home with 24 hour family support and [facility] (see ER report for details). Family has been struggling to manage patient's intermittent escalating behaviors; combativeness, delusions, punching, and attempts to "escape being hostage". Patient's daughter Jenn has been at the bedside and is very supportive. 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 Patient has also been followed by a psychiatrist (Dr. Do) in the past for potential bi-polar disorder, however Jenn states that this has not been officially diagnosed. Dr. 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 Hathaway. [facility] has been consulted to evaluate patient and this is pending. Patient is currently sleepy but easily aroused and appropriate. Plan at this time is to await [facility] evaluation and further recommendation/evaluation of psychiatry. Patient and family goals are for patient to return home with hospice, family support, and medication management that is appropriate to treat any psychiatric (?) needs that will allow patient and family to feel safe at home Date Signed: 02/03/2018 07:55 PM Electronically Signed By:Patti Mills RN
[2018-02-03] MEDS ORDERED: ACETAMINOPHEN 325 MG TAB PO PRN (22:24)
[2018-02-03] MEDS ORDERED: ONDANSETRON DISINTEGRATING 4 MG TAB PO PRN (22:24)
[2018-02-03] MEDS ORDERED: ONDANSETRON 4 MG/2 ML VIAL IVP PRN (22:24)
--- NOTE | 2018-02-03 23:16 | PDGENHP ---
History and Physical - Chief Complaint Agitation - History of Present Illness 62 yo M w/ metastatic NSCLC currently in home hospice care was sent to ED at request of family due to aggressive behavior and possible psychosis. His family feels unable to care for him at this time. His hospice program apparently does not have the ability to accept him to their inpatient facility so they are requesting he be admitted here for symptom management. His goals of care are comfort care only. Per ED documentation patient was offered a brain MRI but family refused this. His CT Head did not show any acute findings. At the time of my evaluation patient is calm and attempting to communicate but his speech is intelligible. He was given Roxanol, Seroquel, and clonazepam prior to arrival. History Information - Allergies/Home Medication List Allergies/Adverse Reactions: No Known Allergies Allergy (Verified 02/03/18 16:59) Home Medications: Methadone HCl [Methadone 5 mg (*)] 5 mg PO DAILY@12 02/03/18 [Last Taken ] Methadone HCl [Methadone 5 mg (*)] 10 mg PO BID 02/03/18 [Last Taken 02/03/18 09 :00] QUEtiapine FUMARATE [Seroquel 50 mg (*)] 50 mg PO TID PRN 02/03/18 [Last Taken 02/03/18 12:00] clonazePAM [Klonopin (*)] 0.75 mg PO DAILY@09 02/03/18 [Last Taken 02/03/18] clonazePAM [Klonopin (*)] 1 mg PO DAILY@14 02/03/18 [Last Taken 02/03/18] clonazePAM [Klonopin (*)] 1.25 mg PO HS 02/03/18 [Last Taken 02/02/18] morphINE [Roxanol 10 mg/0.5 ml oral soln (*)] 20 - 30 mg PO Q4H PRN 02/03/18 [ Last Taken 02/03/18 20:00] I have personally reviewed and updated: family history, medical history - Past Medical History atrial fibrillation, cancer Additional medical history: Neuropathy - Family History Positive for: cancer - Social History Smoking Status: Former smoker Review of Systems Review of Systems: Unable to obtain from patient 10/02 mental status Physical Exam Physical Exam: Temp Pulse Resp BP Pulse Ox 36.8 C 109 H 14 91/69 L 97 02/03/18 22:38 02/03/18 22:38 02/03/18 22:38 02/03/18 22:38 02/03/18 22:38 O2 (L/minute) 2 Constitutional: chronically ill appearing, cachectic Eyes: anicteric sclera, pale conjunctiva Ears, Nose, Mouth, Throat: moist mucous membranes, no oral mucosal ulcers Cardiovascular: regular rate and rhythym, no murmur, rub, or gallop Respiratory: no respiratory distress, clear to auscultation Gastrointestinal: normoactive bowel sounds, soft, non-tender abdomen Skin: warm, normal color Neurologic: sensation intact bilaterally, No facial droop Psychiatric: encephalopathic, flat affect Lab Data & Imaging Review 02/03/18 17:17 02/03/18 17:17 WBC 6.59 10^3/uL (3.80-9.50) 02/03/18 17:17 RBC 4.26 10^6/uL (4.40-6.38) L 02/03/18 17:17 Hgb 11.3 g/dL (13.7-17.5) L 02/03/18 17:17 Hct 35.5 % (40.0-51.0) L 02/03/18 17:17 MCV 83.3 fL (81.5-99.8) 02/03/18 17:17 MCH 26.5 pg (27.9-34.1) L 02/03/18 17:17 MCHC 31.8 g/dL (32.4-36.7) L 02/03/18 17:17 RDW 15.7 % (11.5-15.2) H 02/03/18 17:17 Plt Count 242 10^3/uL (150-400) 02/03/18 17:17 MPV 8.7 fL (8.7-11.7) 02/03/18 17:17 Neut % (Auto) 85.2 % (39.3-74.2) H 02/03/18 17:17 Lymph % (Auto) 4.4 % (15.0-45.0) L 02/03/18 17:17 Swain % (Auto) 9.1 % (4.5-13.0) 02/03/18 17:17 Eos % (Auto) 0.6 % (0.6-7.6) 02/03/18 17:17 Baso % (Auto) 0.2 % (0.3-1.7) L 02/03/18 17:17 Nucleat RBC Rel Count 0.0 % (0.0-0.2) 02/03/18 17:17 Absolute Neuts (auto) 5.61 10^3/uL (1.70-6.50) 02/03/18 17:17 Absolute Lymphs (auto) 0.29 10^3/uL (1.00-3.00) L 02/03/18 17:17 Absolute Monos (auto) 0.60 10^3/uL (0.30-0.80) 02/03/18 17:17 Absolute Eos (auto) 0.04 10^3/uL (0.03-0.40) 02/03/18 17:17 Absolute Basos (auto) 0.01 10^3/uL (0.02-0.10) L 02/03/18 17:17 Absolute Nucleated RBC 0.00 10^3/uL (0-0.01) 02/03/18 17:17 Immature Gran % 0.5 % (0.0-1.1) 02/03/18 17:17 Immature Gran # 0.03 10^3/uL (0.00-0.10) 02/03/18 17:17 RBC/WBC/PLT Morphology TNP 02/03/18 17:17 Platelet Estimate TNP 02/03/18 17:17 PT 15.9 SEC (12.0-15.0) H 02/03/18 17:17 INR 1.25 (0.83-1.16) H 02/03/18 17:17 APTT 31.3 SEC (23.0-38.0) 02/03/18 17:17 Sodium 138 mEq/L (135-145) 02/03/18 17:17 Potassium 4.0 mEq/L (3.3-5.0) 02/03/18 17:17 Chloride 92 mEq/L (97-110) L 02/03/18 17:17 Carbon Dioxide 29 mEq/l (22-31) 02/03/18 17:17 Anion Gap 17 mEq/L (8-16) H 06/06/18 17:17 BUN 12 mg/dL (7-23) 02/03/18 17:17 Creatinine 0.5 mg/dL (0.7-1.3) L 02/03/18 17:17 Estimated GFR > 60 02/03/18 17:17 Glucose 117 mg/dL (70-100) H 02/03/18 17:17 Calcium 9.1 mg/dL (8.5-10.4) 02/03/18 17:17 Total Bilirubin 0.8 mg/dL (0.1-1.4) 02/03/18 17:17 Conjugated Bilirubin 0.7 mg/dL (0.0-0.5) H 02/03/18 17:17 Unconjugated Bilirubin 0.1 mg/dL (0.0-1.1) 02/03/18 17:17 AST 18 IU/L (17-59) 02/03/18 17:17 ALT 21 IU/L (21-72) 02/03/18 17:17 Alkaline Phosphatase 75 IU/L (38-126) 02/03/18 17:17 POC Troponin I 0.00 ng/mL (0.00-0.08) 02/03/18 17:21 Total Protein 6.8 g/dL (6.3-8.2) 02/03/18 17:17 Albumin 3.3 g/dL (3.5-5.0) L 02/03/18 17:17 Imaging Review: Imaging Impressions Head CT 02/03/18 17:00 Impression: There is no acute intracranial abnormality identified on this unenhanced CT evaluation. If there is further clinical concern regarding the patient's symptoms, MR imaging (with and without contrast) is suggested, if not otherwise contraindicated. Findings were discussed with Levi Kumar MD at 17:47, on 02/03/2018. Assessment & Plan Assessment: 62 yo M w/ metastatic NSCLC on home hospice admitted for management of agitation. Plan: 1. Agitation - Unclear etiology, patient is calm at the time of my evaluation after receiving Roxanol, Seroquel, and clonazepam en route. CT Head performed in the ED showed no acute findings. Family refused MRI Brain. - Goals of care are comfort measures at this time - Morphine and Ativan PRN for symptom control 2. Metastatic NSCLC - Currently in home hospice care. Diet - Regular Code - DNR PPx - Not indicated Dispo - Admit under observation status
[2018-02-04] MEDS: LORazepam 2 MG/ML INJ IVP PRN ×9 (03:44→22:27)
[2018-02-04] MEDS: HALOPERIDOL LACT 5 MG/ML INJ IVP PRN ×2 (07:18→22:59)
[2018-02-04] MEDS: QUEtiapine FUMARATE 50 MG TAB PO PRN (07:43)
[2018-02-04] MEDS ORDERED: OLANZapine DISINTEGR 5 MG TAB PO ONE (10:33)
[2018-02-04] MEDS ORDERED: ALPRAZolam 1 MG TAB PO PRN (10:34)
[2018-02-04] MEDS: METHADONE HCL 5 MG TAB PO SCH ×3 (10:51→23:28)
[2018-02-04] MEDS ORDERED: clonazePAM 0.5 MG TAB PO SCH ×2 (14:00→21:00)
[2018-02-04] MEDS: morphINE 10 MG/0.5 ML UDSYR PO PRN (14:23)
--- NOTE | 2018-02-04 14:54 | HOSPPROG ---
Hospitalist Progress Note Assessment/Plan: 62 yo M w/ metastatic NSCLC on home hospice admitted for management of agitation. Plan: 1. Agitation - has been worsening at home and to the point where patient is no longer safe to be managed at home. Unclear how much of this is psychiatric in nature, per hospice MD patient has a hx of bipolar and some of this is presumably primarily psych. Seroquel/haldol/ativan given overnight with continued agitation/paranoia and what appears to be delirium. Added zyprexa and xanax instead of clonazepam given sxs escalation being so rapid. May need psych consult. Will need likely several days for stabilization--danger to himself and others currently. 2. Metastatic NSCLC - Currently in home hospice care. Diet - Regular Code - DNR PPx - Not indicated Dispo -IP status, given severe agitation/anxiety/paranoia will need > 48 hrs stay Subjective: patient very anxious, screaming, running halls Objective: Vital Signs Temp Pulse Resp BP Pulse Ox 37.1 C 87 18 119/77 95 02/04/18 08:15 02/04/18 08:15 02/04/18 08:15 02/04/18 08:15 02/04/18 08:15 02/03/18 02/04/18 02/05/18 05:59 05:59 05:59 Output Total 125 375 Balance -125 -375 PT 15.9 SEC (12.0-15.0) H 02/03/18 17:17 INR 1.25 (0.83-1.16) H 02/03/18 17:17 cachectic anxious agitated fearful given MS unable to complete full physical exam - Time Spent With Patient Time Spent with Patient: greater than 35 minutes Time Spent with Patient: Greater than 35 minutes spent on this patients care, greater than 50% of time spent counseling, educating, and coordinating care regarding the above mentioned plan. ICD10 Worksheet Patient Problems: Problems Problem Status Onset Lung cancer Acute Vomiting Acute Dehydration Acute Anemia Acute Generalized weakness Acute Pneumonia Acute Atrial fibrillation with RVR Acute Sepsis Acute Fever Acute Pneumothorax Acute
--- NOTE | 2018-02-04 15:46 | PDMN ---
Medical Necessity Medical necessity: Patient meets inpatient criteria per physician note and [facility] [place] M -590 Delirium (delirium that prevents performance of life-sustaining function: history of NSCLC, on home hospice; recent aggressive behavior and possible psychosis, hospitalized for symptom control. IV Haldol and Ativan for agitation , po Methadone and morphine for pain w/IV morphine for break-through pain; anticipated LOS > 2 midnights for ongoing IV symptom management / EOL care.)
[2018-02-04] MEDS ORDERED: OLANZapine DISINTEGR 5 MG TAB PO SCH (21:00)
[2018-02-05] MEDS: LORazepam 2 MG/ML INJ IVP PRN ×5 (00:22→06:46)
[2018-02-05] MEDS: HALOPERIDOL LACT 5 MG/ML INJ IVP PRN (04:27)
[2018-02-05] MEDS ORDERED: LORazepam 2 MG/ML INJ IVP ONE (07:01)
[2018-02-05] MEDS ORDERED: OLANZapine 10 MG/2 ML VIAL IM ONE (07:27)
[2018-02-05] MEDS ORDERED: clonazePAM 0.5 MG TAB PO SCH (09:00)
[2018-02-05] MEDS: METHADONE HCL 5 MG TAB PO SCH ×2 (14:26→14:28)
--- NOTE | 2018-02-05 14:53 | HOSPPROG ---
Hospitalist Progress Note Assessment/Plan: 62 yo M w/ metastatic NSCLC on home hospice admitted for management of agitation. Plan: # Acute encephalopathy: with significant agitation and paranoia and what seems like delirium as well, improved somewhat with zyprexa and will continue, working on redirecting. May be some psychiatric component per patient's hospice MD (spoke to on phone last night) however largely appears metabolic currently. Currently remains a danger to himself/others and will require ongoing IP stay # Metastatic NSCLC - Currently in home hospice care. # SPCM: BMI 13, not eating, significant weight loss in setting of cancer related cachexia, given ms changes as above this is unlikely to improve Diet - Regular Code - DNR PPx - Not indicated Dispo -IP status, given severe agitation/anxiety/paranoia will need > 48 hrs stay Subjective: no significant overnight events, this am very calm but becoming agitated again in the afternoon Objective: Vital Signs Temp Pulse Resp BP Pulse Ox 36.7 C 119 H 20 139/76 H 96 02/04/18 22:35 02/04/18 22:35 02/05/18 14:11 02/05/18 14:11 02/04/18 22:35 02/04/18 02/05/18 02/06/18 05:59 05:59 05:59 Intake Total 2024 Output Total 1025 Balance 1000 PT 15.9 SEC (12.0-15.0) H 02/03/18 17:17 INR 1.25 (0.83-1.16) H 02/03/18 17:17 cachectic somnolent anicteric rrr no mrg - Time Spent With Patient Time Spent with Patient: greater than 35 minutes Time Spent with Patient: Greater than 35 minutes spent on this patients care, greater than 50% of time spent counseling, educating, and coordinating care regarding the above mentioned plan. ICD10 Worksheet Patient Problems: Problems Problem Status Onset Lung cancer Acute Vomiting Acute Dehydration Acute Anemia Acute Generalized weakness Acute Pneumonia Acute Atrial fibrillation with RVR Acute Sepsis Acute Fever Acute Pneumothorax Acute
[2018-02-05] MEDS: OLANZapine 10 MG/2 ML VIAL IM SCH (16:45)
--- NOTE | 2018-02-05 16:54 | ASMTCMCOM ---
CM Note CM Note Notes: Received numerous phone calss today from Keyla Sargent at [facility] trying to make pt GIP. Gave Samia Barth information so she could reach out to them. Later in day received call from pt's Anupama who had been told by [facility] that pt had to be discharged from [facility] in order to be admitted at [facility] and they could not tell her if insurance would cover it. Anupama quite upset and crying. Assured [facility] that [facility] is taking good care of pt and that there should be no problem with insurance coivering pt. Told Anupama someone from case mgmt would call every day with an update ([phone]. Anupama also asked about medial aid in dying. Explained to Anupama that pt had to be able to make that decision himself. CM will continue to follow. Date Signed: 02/05/2018 04:53 PM Electronically Signed By:Rubia Olvera LCSW
[2018-02-05] MEDS: OLANZapine 10 MG/2 ML VIAL IM PRN (16:57)
[2018-02-05] MEDS ORDERED: OLANZapine DISINTEGR 5 MG TAB PO ONE ×2 (17:00→21:00)
[2018-02-05] MEDS ORDERED: STERILE WATER INJ 20 ML VIAL IV ONE (17:00)
[2018-02-05] MEDS: QUEtiapine FUMARATE 50 MG TAB PO PRN (18:42)
[2018-02-06] MEDS: METHADONE HCL 5 MG TAB PO SCH ×4 (00:26→23:33)
[2018-02-06] MEDS: OLANZapine 10 MG/2 ML VIAL IM SCH ×3 (02:37→23:47)
[2018-02-06] MEDS: HALOPERIDOL LACT 5 MG/ML INJ IVP PRN ×2 (05:19→14:23)
[2018-02-06] MEDS ORDERED: OLANZapine DISINTEGR 5 MG TAB PO SCH (09:00)
[2018-02-06] MEDS: QUEtiapine FUMARATE 50 MG TAB PO PRN ×3 (10:55→23:33)
[2018-02-06] MEDS: LORazepam 2 MG/ML INJ IVP PRN (12:06)
--- NOTE | 2018-02-06 13:39 | HOSPPROG ---
Hospitalist Progress Note Assessment/Plan: 62 yo M w/ metastatic NSCLC on home hospice admitted for management of agitation. Plan: # Acute encephalopathy: with significant agitation and paranoia and what seems like delirium as well, improved somewhat with zyprexa and will continue, working on redirecting. May be some psychiatric component per patient's hospice MD (spoke to on phone last night) however largely appears metabolic currently. Currently remains a danger to himself/others , goal is to stabilize patient behaviorally enough to where he can return to hospice care. # Metastatic NSCLC - Currently in home hospice care. # SPCM: BMI 13, not eating, significant weight loss in setting of cancer related cachexia, given ms changes as above this is unlikely to improve Diet - Regular-not eating much but is drinking fluids Code - DNR PPx - Not indicated Dispo -IP status, given severe agitation/anxiety/paranoia will need > 48 hrs stay care plan reviewed with patient's present at bedside Subjective: no acute overnight events, continues to have some waxing and waning in his mentation and agitation levels Objective: Vital Signs Temp Pulse Resp BP Pulse Ox 36.7 C 123 H 24 H 128/92 H 99 02/06/18 07:33 02/06/18 07:33 02/06/18 07:33 02/06/18 07:33 02/06/18 07:33 02/05/18 02/06/18 02/07/18 05:59 05:59 05:59 Intake Total 2025 600 Output Total 1025 275 925 Balance 1000 325 -925 PT 15.9 SEC (12.0-15.0) H 02/03/18 17:17 INR 1.25 (0.83-1.16) H 02/03/18 17:17 cachectic somnolent anicteric rrr no mrg - Time Spent With Patient Time Spent with Patient: greater than 35 minutes Time Spent with Patient: Greater than 35 minutes spent on this patients care, greater than 50% of time spent counseling, educating, and coordinating care regarding the above mentioned plan. ICD10 Worksheet Patient Problems: Problems Problem Status Onset Anemia Acute Atrial fibrillation with RVR Acute Dehydration Acute Fever Acute Generalized weakness Acute Lung cancer Acute Pneumonia Acute Pneumothorax Acute Sepsis Acute Vomiting Acute
--- NOTE | 2018-02-06 14:30 | ASMTCMCOM ---
CM Note CM Note Notes: Pt will likely [facility]ol in [facility] [place]. DC unclear. Faxed clinicals to [facility]. CM to follow. Date Signed: 02/06/2018 02:29 PM Electronically Signed By:Rubia Olvera LCSW
[2018-02-06] MEDS: OLANZapine 10 MG/2 ML VIAL IM PRN (15:26)
[2018-02-06] MEDS: morphINE 10 MG/0.5 ML UDSYR PO PRN (23:39)
[2018-02-07] MEDS ORDERED: OLANZapine DISINTEGR 5 MG TAB PO SCH (09:00)
[2018-02-07] MEDS: OLANZapine DISINTEGR 5 MG TAB PO PRN ×2 (09:37→15:23)
[2018-02-07] MEDS: METHADONE HCL 5 MG TAB PO SCH ×3 (09:37→22:21)
--- NOTE | 2018-02-07 10:11 | HOSPPROG ---
Hospitalist Progress Note Assessment/Plan: 62 yo M w/ metastatic NSCLC on home hospice admitted for management of agitation. Plan: # Acute encephalopathy: with significant agitation and paranoia and what seems like delirium as well * family suspects benzo's over the last few months may be contributing * it seems zyprexa has been working - alfred murray serequal and schedule increased dose of zyprexa * stop prn ativan * restart home clonipin - has been on benzo's many months * increase prn haldol dose * plan for home if possible # Metastatic NSCLC - Currently in home hospice care. * he stopped eating 3 weeks ago # SPCM: BMI 13, not eating, significant weight loss in setting of cancer related cachexia, given ms changes as above this is unlikely to improve Diet - Regular-not eating much but is drinking fluids Code - DNR PPx - Not indicated Dispo care plan reviewed with patient's present at bedside discussed with dr jeong Subjective: more clear this am, no pain Objective: Vital Signs Temp Pulse Resp BP Pulse Ox 36.7 C 126 H 20 109/61 96 02/06/18 23:20 02/06/18 23:20 02/06/18 23:20 02/06/18 23:20 02/06/18 23:20 02/06/18 02/07/18 02/08/18 05:59 05:59 05:59 Intake Total 600 850 Output Total 275 925 Balance 325 -75 PT 15.9 SEC (12.0-15.0) H 02/03/18 17:17 INR 1.25 (0.83-1.16) H 02/03/18 17:17 - Time Spent With Patient Time Spent with Patient: greater than 35 minutes (discussing plan) Time Spent with Patient: Greater than 35 minutes spent on this patients care, greater than 50% of time spent counseling, educating, and coordinating care regarding the above mentioned plan. - Physical Exam Constitutional: no apparent distress, chronically ill appearing, cachectic Ears, Nose, Mouth, Throat: moist mucous membranes Cardiovascular: regular rate and rhythym, no murmur, rub, or gallop Respiratory: no respiratory distress, no rales or rhonchi, clear to auscultation Skin: warm Neurologic: other (alert, conversive) Psychiatric: interacting appropriately, No thought process linear, No agitated ICD10 Worksheet Patient Problems: Problems Problem Status Onset Anemia Acute Atrial fibrillation with RVR Acute Dehydration Acute Fever Acute Generalized weakness Acute Lung cancer Acute Pneumonia Acute Pneumothorax Acute Sepsis Acute Vomiting Acute
[2018-02-07] MEDS: morphINE 10 MG/0.5 ML UDSYR PO PRN ×3 (10:19→15:23)
[2018-02-07] MEDS: clonazePAM 0.5 MG TAB PO SCH (10:20)
[2018-02-07] MEDS ORDERED: clonazePAM 0.5 MG TAB PO SCH ×2 (14:00→21:00)
[2018-02-07] MEDS ORDERED: OLANZapine DISINTEGR 10 MG TAB PO SCH (21:00)
[2018-02-08] MEDS: morphINE 10 MG/0.5 ML UDSYR PO PRN ×5 (00:34→19:39)
[2018-02-08] MEDS: HALOPERIDOL LACT 5 MG/ML INJ IVP PRN ×4 (00:46→19:41)
[2018-02-08] MEDS: OLANZapine DISINTEGR 5 MG TAB PO PRN ×2 (00:55→17:22)
[2018-02-08] MEDS ORDERED: OLANZapine DISINTEGR 5 MG TAB PO SCH ×2 (09:00→09:07)
[2018-02-08] MEDS: clonazePAM 0.5 MG TAB PO SCH (10:42)
[2018-02-08] MEDS: METHADONE HCL 5 MG TAB PO SCH ×3 (12:14→22:58)
[2018-02-08] MEDS: OLANZapine DISINTEGR 10 MG TAB PO SCH ×2 (12:18→21:18)
--- NOTE | 2018-02-08 13:00 | HOSPPROG ---
Hospitalist Progress Note Assessment/Plan: 62 yo M w/ metastatic NSCLC on home hospice admitted for management of agitation. Plan: # Acute encephalopathy: with significant agitation and paranoia and what seems like delirium as well * family suspects benzo's over the last few months may be contributing * it seems zyprexa has been working - cont to increase zyprexa * i think clonipin is making it worse. Will stop and start a small dose of ativan to help prevent withdrawl # Metastatic NSCLC - Currently in home hospice care. * he stopped eating 3 weeks ago # SPCM: BMI 13, not eating, significant weight loss in setting of cancer related cachexia, given ms changes as above this is unlikely to improve Diet - Regular-not eating much but is drinking fluids Code - DNR PPx - Not indicated Dispo care plan reviewed with patient's present at bedside Subjective: agitated overnight Objective: Vital Signs Temp Pulse Resp BP Pulse Ox 36.7 C 132 H 20 125/104 H 95 02/07/18 17:34 02/08/18 01:20 02/08/18 01:20 02/08/18 01:20 02/08/18 01:20 02/07/18 02/08/18 02/09/18 05:59 05:59 05:59 Intake Total 850 240 Output Total 925 Balance -75 240 PT 15.9 SEC (12.0-15.0) H 02/03/18 17:17 INR 1.25 (0.83-1.16) H 02/03/18 17:17 - Time Spent With Patient Time Spent with Patient: greater than 35 minutes (discussing plan) Time Spent with Patient: Greater than 35 minutes spent on this patients care, greater than 50% of time spent counseling, educating, and coordinating care regarding the above mentioned plan. - Physical Exam Constitutional: chronically ill appearing, other (sleeping) Cardiovascular: regular rate and rhythym Respiratory: no respiratory distress Skin: warm Neurologic: other (sleeping) ICD10 Worksheet Patient Problems: Problems Problem Status Onset Anemia Acute Atrial fibrillation with RVR Acute Dehydration Acute Fever Acute Generalized weakness Acute Lung cancer Acute Pneumonia Acute Pneumothorax Acute Sepsis Acute Vomiting Acute
[2018-02-08 20:21] VITALS: BP 123/68
[2018-02-08] MEDS: LORazepam 2 MG/ML INJ IVP SCH (21:17)
--- NOTE | 2018-02-09 22:29 | ASMTCMCOM ---
CM Note CM Note Notes: Chart reviewed. Met with who was trying to calm patient down. He is agitated and trying to get up from his bed. A sitter is present in the room. Anupama. his asked about hospice and said they had nurses present last week here in the hospital. She shares with me she is anxious to speak to her hospice team. Information relayed to hospice and they are to send staff out to support the patient and his family. Question whether an inpatient hospice bed would be more appropriate at this point in time. CM to follow. Plan: TBD Date Signed: 02/09/2018 12:27 PM Electronically Signed By:Abby Carter RN
[2018-02-09] MEDS ORDERED: SCOPOLAMINE HYDROBROMIDE 1 MG/3 DAYS PATCH TD SCH (22:45)
[2018-02-10] MEDS: OLANZapine DISINTEGR 10 MG TAB PO SCH ×3 (05:50→10:24)
[2018-02-10] MEDS: LORazepam 2 MG/ML INJ IVP SCH ×3 (05:50→10:22)
[2018-02-10] MEDS: PHENobarbital NA 130 MG/ML VIAL IVP SCH ×3 (05:50→08:55)
[2018-02-10] MEDS: METHADONE HCL 5 MG TAB PO SCH ×4 (05:50→10:22)
--- NOTE | 2018-02-10 10:25 | ASMTCMCOM ---
CM Note CM Note Notes: Pt this morning at ~8:[address] Gee. Madelaine DAN. Date Signed: 02/10/2018 10:24 AM Electronically Signed By:Rubia Olvera LCSW
--- NOTE | 2018-02-10 10:27 | ASDISCHSUM ---
Discharge Information Plan Status: Medically Cleared to Leave: Discharge Date: CM D/C Disposition: ADT D/C Disposition: Projected Discharge Date:02/08/2018 11:00 AM Transportation at D/C: Discharge Delay Reason: Follow-Up Date:02/08/2018 11:00 AM Discharge Slot: Final Diagnosis: Placement Information Referral Type:*Hospice Referral ID:[id number] Provider Name: Address 1: Phone Number: Address 2: Fax Number: City: Selection Factors: State: Patient Contact Information Contact Name:CHANCE Relationship: Address:[address] City:[place] Alternate Phone: State/Zip Code:[place] [address] Email: Financial Information Financial Class:HMO and PPO Plans Primary Plan Desc:[facility] Primary Plan Number:[id number] Secondary Plan Desc: Secondary Plan Number: Assessment Information [facility] CM Progress Note CM Note CM Note Notes: Patient presents to ER accompanied by family and caregivers after Dr. Kumar received a call from the medical sales consultant at [facility] with concerns that patient is in need of psychiatric evaluation. Patient is living at home with 24 hour family support and [facility] hospice (see ER report for details). Family has been struggling to manage patient's intermittent escalating behaviors; combativeness, delusions, punching, and attempts to "escape being hostage". Patient's daughter Jenn has been at the bedside and is very supportive. 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 Patient has also been followed by a psychiatrist (Dr. Do) in the past for potential bi-polar disorder, however Jenn states that this has not been officially diagnosed. Dr. Chambers, career development consultant psychiatrist was contacted and has spoken with Dr. Hathaway. [facility] has been consulted to evaluate patient and this is pending. Patient is currently sleepy but easily aroused and appropriate. Plan at this time is to await [facility] evaluation and further recommendation/evaluation of psychiatry. Patient and family goals are for patient to return home with hospice, family support, and medication management that is appropriate to treat any psychiatric (?) needs that will allow patient and family to feel safe at home Date Signed: 02/03/2018 07:55 PM Electronically Signed By:Patti Mills RN [facility] CM Progress Note CM Note CM Note Notes: Received numerous phone calss today from Keyla Sargent at [facility] trying to make pt GIP. Gave Samia Barth information so she could reach out to them. Later in day received call from pt's Anupama who had been told by [facility] that pt had to be discharged from [facility] in order to be admitted at [facility] and they could not tell her if insurance would cover it. Anupama quite upset and crying. Assured [facility] that [facility] is taking good care of pt and that there should be no problem with insurance coivering pt. Told Anupama someone from case mgmt would call every day with an update ([phone]. Anupama also asked about medial aid in dying. Explained to Anupama that pt had to be able to make that decision himself. CM will continue to follow. Date Signed: 02/05/2018 04:53 PM Electronically Signed By:Rubia Olvera LCSW [facility] CM Progress Note CM Note CM Note Notes: Pt will likely re-enrool in [facility] at [place]. DC unclear. Faxed clinicals to [facility]. CM to follow. Date Signed: 02/06/2018 02:29 PM Electronically Signed By:Rubia Olvera LCSW [facility] Progress Note CM Note CM Note Notes: Chart reviewed. Met with who was trying to calm patient down. He is agitated and trying to get up from his bed. A sitter is present in the room. Anupama. his asked about hospice and said they had nurses present last week here in the hospital. She shares with me she is anxious to speak to her hospice team. Information relayed to hospice and they are to send staff out to support the patient and his family. Question whether an inpatient hospice bed would be more appropriate at this point in time. CM to follow. Plan: TBD Date Signed: 02/09/2018 12:27 PM Electronically Signed By:Abby Carter RN [facility] CM Progress Note CM Note CM Note Notes: Pt this morning at ~8:[address] Gee. Madelaine [facility]. Date Signed: 02/10/2018 10:24 AM Electronically Signed By:Rubia Olvera LCSW Intervention Information
== END 2018-02-10 15:17 | disposition expired | DRG 71 ==
LOC: EDUNIT# → F1N 22:28 → OBSVTOIN 02-04 14:52
PROVIDERS: ADMIT Internal Medicine; ATTEND Internal Medicine
DX: G93.41 Metabolic encephalopathy (principal); C34.90 Malignant neoplasm of unspecified part of unspecified bronchus or lung; R64 Cachexia; Z68.1 Body mass index [BMI] 19.9 or less, adult; Z66 Do not resuscitate; Z51.5 Encounter for palliative care
CPT/HCPCS: 84484-PO; J1630; J2060; J2270; J2405; J2560